=== PATIENT | male | born 1940 | race Two or more races ===

== ENCOUNTER 2024-05-19 09:44 | Outpatient (AMB) | payer MEDICAID, SELFPAY ==
[2024-05-19 09:51] VITALS: BP 134/73; PULSE 99; RESP 17; TEMP 36.4; O2SAT 83
--- NOTE | 2024-05-19 09:51 | PD.RESCLINIC ---
Vital Signs 05/19/24 09:51 Weight Measurement Method Wheelchair BP 134/73 H Blood Pressure Source Automatic Cuff Blood Pressure Location Left Upper Arm Position Sitting Respiration 17 Pulse 99 Pulse Source Monitor Temp 97.5 F Temp Source Oral Pulse Oximetry (%) 83 L Oxygen Delivery Method Nasal Cannula Allergies/Meds Allergies & Medications Allergies No Known Allergies Allergy (Verified 05/19/24 09:52) Medication Reconciliation albuterol sulfate 90 mcg/actuation aerosol inhaler 2 puff inhalation Q6H PRN Shortness Of Breath Or Wheezing #8.5 grams 05/19/24 [Rx] albuterol sulfate 1.25 mg/3 mL solution for nebulization 1.25 mg (3 mL) inhalation QID PRN shortness of breath or wheezing #120 vials 05/21/24 [Rx] fluticasone propionate 230 mcg-salmeterol 21 mcg/actuation HFA inhaler (Advair HFA) 2 puff inhalation BID #12 grams 05/28/24 [Rx] tiotropium bromide 2.5 mcg/actuation mist for inhalation (Spiriva Respimat) 2 puff inhalation QAM #4 grams 05/28/24 [Rx] MA Intake Visit Data Collection New Patient or Established: Established Patient (seen at [facility] within 3 years) Seen by Clinical Staff ONLY (RN/MA): No Pain Present Currently: No Pain scale:: 0 Pain Scale Used: [place]/Numerical PCP or OBGYN visit in last 3 months: No Do You Feel Safe at Home: Yes Authorities Contacted: N/A Smoking Status Smoking Status: Former smoker Immunization / Flu Flu Vaccine in the Last 12 Months: No Flu Vaccine Exclusion Criteria: No Exclusion Criteria Past Medical History Past Medical History CARDIAC: Positive Hypertension (I think so- per daughter); Negative Congestive Heart Failure RESPIRATORY: Positive Asthma; Negative Chronic Obstructive Pulmonary Disease (COPD) GENITOURINARY: Negative Genitourinary Disorders or Renal Disease MUSCULOSKELETAL: Negative Arthritis ENDOCRINE: Negative Diabetes Mellitus Type 1 or Diabetes Mellitus Type 2 HEMATOLOGIC: Negative Anemia OTHER HISTORY: Negative Blood Transfusions or Anesthesia Reactions Family History FAMILY HISTORY: Negative Family Cardiac Disorders Social History SMOKING STATUS: Smoking status: Former smoker SECOND HAND EXPOSURE: second hand exposure: No (QUIT >12yrs ago) ALCOHOL: Alcohol Intake: Never HOUSING: Housing: trailer LIVES WITH: Lives With: Family Patient Shahida Dobbs Social History Living Situation History Housing: trailer Housing Other:: lives with son Tobacco History Smoking Status: Former smoker Packs per Day: 2 Second Hand Smoke Exposure: No (QUIT >12yrs ago) Alcohol History Alcohol Intake: Never Domestic Abuse History Do You Feel Safe at Home: Yes Review of Systems Report any current symptoms Only answer those that you have currently: Past Medical History Past Medical History Have you ever been diagnosed with any of the following: Cardiology Problems Congestive Heart Failure: No Hypertension: Yes (I think so- per daughter) Respiratory Problems Chronic Obstructive Pulmonary Disease (COPD): No Asthma: Yes Genital/Urinary Problems Renal Disease: No Musculoskeletal Problems Arthritis: No Endocrine Problems Diabetes Mellitus Type 1: No Diabetes Mellitus Type 2: No Blood Problems Anemia: No Other Problems Blood Transfusions: No Anesthesia Reactions: No History of Present Illness HPI Narrative Conrado Adamson is 83 yr male with PMH of asthma who is presenting to clinic today for a follow up. Patient was recently discharged from hospital on 05/12/2024 due to pneumonia, KAREEN, COPD exacerbation. Niece was present during office visit. She stated that he has completed his course of steroid and antibiotics. Patient has been compliant with oxygen machine currently set to 2 L. Oxygen requirement has been needed for most of the day at night. He denies any shortness of breath, chest pain, cough, fever, chills. States that he is feeling much better after starting his inhaler and oxygen. During the visit, the niece had inquired about getting physical therapy/home health services for patient. States that he is very weak and would benefit from some physical therapy. Currently patient is only able to be transported via wheelchair and needs assitance from getting up from bed/using the toilet. The niece stated that she will start paperwork for insurance as he is currently not insured. Review of Systems Review of Systems Systems Reviewed: All systems reviewed, normal except as documented Objective/Exam Narrative Physical exam: General: Alert and oriented x3. No acute distress, cooperative HEENT: Atraumatic, normocephalic. No JVD noted. Mucosa dry. Cardiovascular: Normal S1 and S2. Regular rate and rhythm. No pitting edema Respiratory: Lungs are clear to auscultation bilaterally. No wheezing or crackles heard. On 2L NC Abdomen: Soft, nontender, not distended, normal bowel sounds. Skin: Warm to touch, dry, no rashes noted Musculoskeletal: No gross injuries. Able to move all 4 extremities, uses wheelchair Neuro: Alert and oriented x3. No focal neuro deficits. Psych: Normal affect and mood Assessment & Plan Diagnosis / Problem List (1) COPD (chronic obstructive pulmonary disease): Status: Acute Assessment & Plan: Patient has history of poorly controlled COPD however has not been diagnosed by heel sander rubber. Patient will need referral to have PFTs done. Has been compliant with inhaler and oxygen regimen since time of discharge. Denies any worsening shortness of breath, chest pain, cough. Encourage niece to purchase pulse ox for monitoring oxygenation. Plan: -purchase pulse ox -continue home oxygen use -continue albuterol sulfate/Trelegy inhaler -Albuterol inhaler refill sent today -Pulmonology referral pending insurance coverage (2) Benign prostate hyperplasia: Status: Acute Assessment & Plan: During last admission, patient exhibited very low urine output and worsening KAREEN. Bladder scan revealed mild to moderate prostatomegaly. Patient was started on tamsulosin and finasteride. Endorses normal urine stream, no dribbling, no dysuria. Plan: - Continue finasteride 5 mg p.o. daily -Continue tamsulosin 0.4 mg p.o. daily -ordered 1 month refill today -follow up in 1 month (3) Wheelchair dependence: Status: Acute Assessment & Plan: Patient is using wheelchair as he has weakness in b/L lower extremities. Very thin/emaciated appearing on physical exam. He would benefit from physical therapy but currently is not able to have home physical therapy as patient is not insured. Encouraged niece who was present at visit to start paperwork and have patient coverage via [employer]. Plan: - Contact services to assist with [employer] coverage paperwork -Contact resident clinic for physical therapy/home health services referral Additional Assessment Attending note: I, Nilton Galicia MD, attest that I was physically present for the snow portions of the service and evaluated the patient with the resident and I reviewed and discussed the case with the resident and agree with the resident's findings and plans of care as documented above. Follow-up from recent hospitalization for pneumonia, KAREEN, exacerbation of COPD. Complete antibiotics and steroids. Using oxygen at 2 L. Feeling improved. We will order home health evaluation and physical therapy. Patient and his family to work on insurance coverage. Nilton Galicia MD Advanced Care Planning Advance care planning discussed with:: patient Physician Billing New Patient New Patient: E/M Level 3-CPT 57279 Office Procedures [facility] Level of Care Nursing/Assessment Patient Status: Established Patient Nursing Assessment/Reassessment: Medication Reconciliation, Update PMH in EMR and Vital Signs Coordination of Care: Complex Care and Chronic Disease 1-5, Education Complex Pt/Fam and Staff clarify orders Established Patient Charge Established Patient Point Assignment: 85 Established Patient Point Charge: EP Level 3 (80-115)
== END 2024-05-19 10:23 | disposition home or self-care (01) ==
LOC: HODAHC 09:44
PROVIDERS: Supervising Provider Internal Medicine
DX: N40.0 Benign prostatic hyperplasia without lower urinary tract symptoms (principal); J44.9 Chronic obstructive pulmonary disease, unspecified; R53.1 Weakness; Z99.3 Dependence on wheelchair
CPT/HCPCS: 99213; G0463

== ENCOUNTER 2024-08-28 00:08 | Inpatient (IN) | payer MEDICARE, MEDICAID, SELFPAY ==
[2024-08-28] VITALS (29 sets, daily range): BP systolic 136–234; BP diastolic 69–125; PULSE 85–130; RESP 16–80; TEMP 36.4–38.7; O2SAT 80–100; BMI 24.1
--- NOTE | 2024-08-28 00:10 | PC.NURSE ---
Dr. Leyva at the bedside
--- NOTE | 2024-08-28 00:13 | EKG_ITS ---
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
--- NOTE | 2024-08-28 00:15 | EDNOTE_ITS ---
ED SOB =RME/HPI General Chief Complaint: Shortness of Breath/Dyspnea Stated Complaint: DIFFICULTY BREATHINGX3 DAYS WORSEN TODAY Time Seen by Provider: 08/28/24 00:10 Arrival date/time: 08/28/24 00:08 RME / HPI RME / HPI Narrative: Dr. Leyva?s Main ED Evaluation: 84yo male with a history of COPD on home O2 presents to the ED for a chief complaint of shortness of breath. Patient states he's had a productive cough, chills, and shortness of breath for the last 4 days. Patient states his shortness of breath significantly worsened tonight, so he came in for evaluation. Family at bedside denies any sick contacts. Patient states he ran out of his inhalers at home. Patient is a former tobacco smoker, quit over 20 years ago. Patient denies any fever, N/V or any other associated symptoms. Related Data Previous Rx's ?Medication ?Instructions ?Recorded albuterol sulfate 90 mcg/actuation 2 puff inhalation Q 6H PRN 05/19/24 aerosol inhaler Shortness Of Breath Or Wheez ing #8.5 grams albuterol sulfate 1.25 mg/3 mL 1.25 mg (3 mL) inhalati on QID PRN 05/21/24 solution for nebulization shortness of breath or wheez ing #120 vials fluticasone propionate 230 2 puff inhalation BID #12 g he 05/28/24 mcg-salmeterol 21 mcg/actuation HFA inhaler (Advair HFA) tiotropium bromide 2.5 2 puff inhalation QAM #4 gra ms 05/28/24 mcg/actuation mist for inhalation (Spiriva Respimat) Allergies Allergy/AdvReac Type Severity Reaction Status Date / Time No Known Allergies Allergy Verified 05/19/24 09:52 Review of Systems Review of Systems Systems Reviewed: All systems reviewed, normal except as documented Past Medical History Past Medical History CARDIAC: Positive Hypertension (I think so- per daughter); Negative Congestive Heart Failure RESPIRATORY: Positive Asthma; Negative Chronic Obstructive Pulmonary Disease (COPD) GENITOURINARY: Negative Genitourinary Disorders or Renal Disease MUSCULOSKELETAL: Negative Arthritis ENDOCRINE: Negative Diabetes Mellitus Type 1 or Diabetes Mellitus Type 2 HEMATOLOGIC: Negative Anemia OTHER HISTORY: Negative Blood Transfusions or Anesthesia Reactions Family History FAMILY HISTORY: Negative Family Cardiac Disorders Social History SMOKING STATUS: Former smoker SECOND HAND EXPOSURE: No (QUIT >12yrs ago) ED Exam Narrative Physical exam: GENERAL APPEARANCE: alert and oriented x 4, well-developed, well-nourished, speaks 1-2 word sentences, in [id number] respiratory distress VITALS: All vitals were reviewed and the pulse ox is 72% on room air, which is hypoxic according to my interpretation. HEENT: Normocephalic, atraumatic; pupils equal, round, reactive to light; EOMI; mucous membranes pink, moist; oropharynx clear NECK: Supple LUNGS: inspiratory and expiratory wheezes bilaterally, tachypneic, no rales, no rhonchi HEART: Tachycardic, regular rhythm; normal S1, S2; no murmurs ABDOMEN: non distended; normal BS; soft, no tenderness, no guarding, no rebound; no masses, no organomegaly, no hernia BACK: no CVA tenderness EXTREMITIES: atraumatic; no edema NEUROLOGIC: awake; alert and oriented x4; cranial nerves II-XII grossly intact; no focal sensory or motor deficits PSYCHIATRIC: appropriate mood and affect SKIN: warm, dry, normal color; no rashes Course Course Course Narrative: 0018: Sepsis alert initiated. Orders made at this time are congruent with ED Adult Sepsis Order List. Re-evaluation is to be completed. CXR is ordered for determining the etiology of shortness of breath. 0036: NS IVF started. 0206: Sepsis reassessment performed consisting of lab review, vitals, physical exam including auscultation of heart, lungs, and visual evaluation of capillary refills, mucosal membranes and extremities. Quality Measures Possible source: pulmonary Blood cultures ordered: yes Antibiotic ordered: Yes Pertinent labs: 08/28/24 00:30 Lactic Acid 2.0 mMol/L (0.4-2.0) Procalcitonin 0.15 ng/ml (0.0-0.49) sepsis Orders Category Date Time Status Bedside COVID-19 Antigen Test NOW Care 08/28/24 00:16 Active Bedside Influenza A&B Antigen Test NOW Care 08/28/24 00:18 Completed Chemical Engraver STAT Care 08/28/24 00:17 Active Continuous Pulse Oximetry STAT Care 08/28/24 00:17 Completed EKG (ED ONLY) *Do not use* NOW Care 08/28/24 00:13 Completed In and Out Catheter X1PRN Care 08/28/24 00:17 Active NPO STAT Care 08/28/24 00:17 Active Strict Intake and Output Routine Care 08/28/24 00:17 Ordered EKG (ED Only) Stat Exams 08/28/24 00:13 Draft XR chest 1V portable Stat Exams 08/28/24 00:16 Taken Arterial Blood Gas Stat Lab 08/28/24 00:59 Completed B-Type Natriuretic Peptide Stat Lab 08/28/24 00:30 Completed Blood Culture (Lab) Stat Lab 08/28/24 00:30 Received CBC Stat Lab 08/28/24 00:30 Completed Comprehensive Metabolic Panel Stat Lab 08/28/24 00:30 Results LDH (Lactate Dehydrogenase) Stat Lab 08/28/24 00:30 Results Lactate (Lactic Acid) Stat Lab 08/28/24 00:30 Completed Lipase Stat Lab 08/28/24 00:30 Results Magnesium Stat Lab 08/28/24 00:30 Results Partial Thromboplastin Time Stat Lab 08/28/24 00:30 Completed Phosphorous Stat Lab 08/28/24 00:30 Results Procalcitonin Stat Lab 08/28/24 00:30 Results Prothrombin Time with INR Stat Lab 08/28/24 00:30 Completed Troponin I Stat Lab 08/28/24 00:30 Results Urinalysis Stat Lab 08/28/24 00:17 Ordered Urine Culture Stat Lab 08/28/24 00:17 Ordered ALBUTEROL RT 0.5ml [Proventil Rt 0.5ml] Med 08/28/24 00:45 Discontinued 10 mg INH X1 ONE ALBUTEROL RT 5 ml [Proventil Rt 5 ml] Med 08/28/24 00:40 Discontinued 10 mg INH X1 ONE Acetaminophen Ivpb [Ofirmev Inj] Med 08/28/24 00:25 Discontinued 1,000 mg in 100 ml IV X1 Albuterol/Ipratr Rt Katarina [Duoneb Rt Katarina] Med 08/28/24 00:16 Discontinued 3 ml INH X1 ONE LORazepam [Ativan Inj] Med 08/28/24 01:56 Discontinued 0.5 mg IVP X1 ONE MethylPREDNISolone.* [SoluMEDROL Inj] Med 08/28/24 00:16 Discontinued 25 mg IVP X1 ONE MethylPREDNISolone.* [SoluMEDROL Inj] Med 08/28/24 00:31 Discontinued 250 mg IVP X1 ONE Sodium Chloride 0.9% 1000 ml [Ns] 1,845 ml Med 08/28/24 00:16 Discontinued IV 1,845 mls/hr Sodium Chloride Rt Katarina 0.9% [NS Rt Katarina 0.9%] Med 08/28/24 00:45 Active 3 ml INH PRN PRN cefTRIAXone [Rocephin] 1,000 mg Med 08/28/24 00:16 Discontinued SODIUM CHLORIDE 0.9% (Popper) [Ns 0.9% (P)] 50 ml IV X1 hydrALAZINE INJ [Apresoline Inj] Med 08/28/24 01:56 Discontinued 10 mg IV X1 ONE BiPAP / CPAP NOW RT 08/28/24 01:55 Active Oxygen Delivery NOW RT 08/28/24 00:17 Active Reevaluation(s) Reevaluation #1: Patient is tachycardic in the 140s and tachypneic with a RR of 35. Patient is saturating at 100% via venti mask. BiPaP ordered. Time: 01:50 Reevaluation #2: Patient is resting comfortably at this time. Blood pressure has improved to 136/84 with a heart rate of 112 and RR of 25. Will consult with the hospitalist. Time: 03:20 Vital Signs Vital signs: Vital Signs Temperature 99.1 F 08/28/24 00:11 Pulse Rate 127 H 08/28/24 00:11 Respiratory Rate 36 H 08/28/24 00:11 Blood Pressure 211/91 H 08/28/24 00:11 Pulse Oximetry (%) 88 L 08/28/24 00:11 Oxygen Delivery Method Room Air 08/28/24 00:11 Shortness of Breath / Dyspnea MDM Narrative MDM Narrative:: Scribe Attestation: 08/28/24 Lara Pradhan am scribing for and in the presence of Dr. Leyva. Patient data External records reviewed:: [facility] previous records (Per chart review, patient was admitted here on 05/08/24 for KAREEN.) Clinical information provided by:: patient and family Social determinants that could affect healthcare access:: substance use (former tobacco smoker, quit over 20 years ago) Patient has the following chronic illnesses:: COPD How is presenting disease/condition affected by chronic disease/condition?: exacerbated by Evaluation data The following diagnostics were reviewed and interpreted by me:: lab results, radiology exam(s) and EKG tracing(s) Lab and/or radiology exams considered but not ordered:: none Interpretation Summary: Bedside COVID and Influenza are negative, CBC is normal, PT and INR are normal, PTT is normal, ABG shows an elevated pCO2 and elevated HCO3, Glucose is 144, Troponin is normal, BNP is 213, Procalcitonin is normal, Lactic Acid is normal, according to my interpretation. CXR shows bibasilar infiltrates, normal cardiac silhouette, COPD changes, sharp costophrenic angles, no pneumothorax, according to my interpretation. EKG done at 0009, sinus tachycardia, rate of 118, normal axis, no ectopy, peak P waves, no acute ischemia, according to my interpretation. Medications / Prescriptions Medications or Prescriptions considered but not ordered:: none Medication administrations:: Medication Administration History Sodium Chloride (Sodium Chloride Rt Katarina 0.9% 3 Ml Nebu) 3 ml INH PRN PRN PRN Reason: SOLN Stop: 09/27/24 00:44 Discontinued Medications Albuterol (Albuterol Rt 25 Mg/5 Ml Nebu) 10 mg INH X1 ONE Stop: 08/28/24 00:41 Last Admin: 08/28/24 01:51 Dose: Not Given Documented By: KG Non-Admin Reason: Discontinued Albuterol (Albuterol Rt 2.5 Mg/0.5 Ml Nebu) 10 mg INH X1 ONE Stop: 08/28/24 00:46 Last Admin: 08/28/24 00:49 Dose: 10 mg Documented By: MODESTO Albuterol/Ipratropium (Albuterol/Ipratropium (Duoneb) Rt Katarina 3 Ml Nebu) 3 ml INH X1 ONE Stop: 08/28/24 00:17 Last Admin: 08/28/24 00:27 Dose: 3 ml Documented By: MODESTO Hydralazine HCl (Hydralazine Inj 20 Mg/Ml Vial) 10 mg IV X1 ONE Stop: 08/28/24 01:57 Last Admin: 08/28/24 02:11 Dose: 10 mg Documented By: KG Sodium Chloride (Ns) 1,845 mls @ 1,845 mls/hr 30 ml/kg infuse over 60 min (1845 ml) IV .Q1H ONE Stop: 08/28/24 01:15 Last Infusion: 08/28/24 01:36 Dose: Infused Documented By: Admin: 08/28/24 00:36 Dose: 1,845 mls/hr Documented By: KG Ceftriaxone Sodium 1,000 mg/ (Sodium Chloride) 50 mls @ 100 mls/hr IV X1 ONE Stop: 08/28/24 00:45 Last Infusion: 08/28/24 01:06 Dose: Infused Documented By: Admin: 08/28/24 00:36 Dose: 100 mls/hr Documented By: KG Acetaminophen (Ofirmev Inj) 1,000 mg in 100 mls @ 250 mls/hr IV X1 ONE Stop: 08/28/24 00:48 Last Infusion: 08/28/24 01:14 Dose: Infused Documented By: Admin: 08/28/24 00:50 Dose: 250 mls/hr Documented By: KG Lorazepam (Lorazepam 2 Mg/Ml Vial) 0.5 mg IVP X1 ONE Stop: 08/28/24 01:57 Last Admin: 08/28/24 02:10 Dose: 0.5 mg Documented By: KG Methylprednisolone Sodium Succinate (Methylprednisolone Sod Succ 62.5 Mg/Ml 2ml Vial) 25 mg IVP X1 ONE Stop: 08/28/24 00:17 Last Admin: 08/28/24 00:48 Dose: Not Given Documented By: KG Non-Admin Reason: Discontinued Methylprednisolone Sodium Succinate (Methylprednisolone Sod Succ 62.5 Mg/Ml 2ml Vial) 250 mg IVP X1 ONE Stop: 08/28/24 00:32 Last Admin: 08/28/24 00:35 Dose: 250 mg Documented By: KG see above Consultations Consultation(s) initiated? (list below): Yes Consultation #1 (Physician, Specialty, Details): Discussed case with Dr. Kenny - ICU resident from Hospitalist service regarding admission. Discussed patients ED course, exam findings, labs, and radiology results. The Hospitalist will evaluate the patient for admission. Time: 02:21 Consultation #2 (Physician, Specialty, Details): Discussed case with [Dr. Hou, attending Dr. Moreno] from Hospitalist service regarding admission. Discussed patients ED course, exam findings, labs, and radiology results. The Hospitalist [agrees] to accept the patient for admission. Time: 03:25 Diagnosis Shortness of Breath Differential Diagnosis: community acquired pneumonia and other (COPD exacerbation, ) Most likely diagnosis given after review of the tests above:: see below Admission Indicated Admission indicated?: indicated Admission Request Was there a request for admission?: Yes Admission Attestation Admission request attestation: Discussed case with [] from Hospitalist service regarding admission. Discussed patients ED course, exam findings, labs, and radiology results. The Hospitalist [agrees,declines] to accept the patient for admission. Disposition Plan Disposition Plan: Admit Critical Care Time Critical Care Time Critical Care Time: Yes Total Critical Care Time (min.): 75 Attestation: The high probability of sudden, clinically significant deterioration in the patient?s condition required the highest level of my preparedness to intervene urgently. The services I provided to this patient were to treat and/or prevent clinically significant deterioration. Services included the following: chart data review, reviewing nursing notes and/or old charts, documentation time, financial operations consultant collaboration regarding findings and treatment options, medication orders and management, direct patient care, vital sign assessments and ordering, interpreting and reviewing diagnostic studies and lab tests. Aggregate critical care time includes only time during which I was engaged in work directly related to the patient?s care, as described above, whether at bedside or elsewhere in the Emergency Department. It did not include time spent performing other reported procedures or the services of residents, students, nurses or physician assistants. Discharge Plan Plan Patient Disposition: Admit Acute Care w/in Hospital Prescriptions/Referrals Prescriptions/Med Rec: No Action albuterol sulfate 90 mcg/actuation HFA aerosol inhaler 2 puff INHALATION Q6H PRN (Reason: Shortness Of Breath Or Wheezing) Qty: 8.5 3RF albuterol sulfate 1.25 mg/3 mL solution for nebulization 1.25 mg inhalation QID PRN (Reason: shortness of breath or wheezing) Qty: 120 5RF Spiriva Respimat 2.5 mcg/actuation mist 2 puff inhalation QAM Qty: 4 5RF Rx Instructions: To replace Trelegy fluticasone propion-salmeterol [Advair HFA] 230-21 mcg/actuation HFA aerosol inhaler 2 puff inhalation BID Qty: 12 5RF Rx Instructions: To replace trelegy along with Spiriva Referrals: No Primary/Family,Physician [Primary Care Provider] - In 1 week Problem List Clinical Impression: Pneumonia, Sepsis, Respiratory failure, Hypertensive emergency Patient/Caregiver Discharge Instructions Print Language: Cuban Stand Alone Forms: [employer] Info., Patient Portal Info Letter
--- NOTE | 2024-08-28 00:16 | XR_ITS ---
Examination: AP chest single view Technique one AP portable upright chest single view Exam date and time: August 28, 2024 0043 hours Comparison May 08, 2024 INDICATIONS: Sepsis protocol. FINDINGS: Significant hyperexpansion Normal heart size Bibasilar pneumonia Prominent osteopenia IMPRESSION: Bibasilar pneumonia
[2024-08-28] MEDS: ALBUTEROL/IPRATROPIUM (Duoneb) RT SOL 3 ML NEBU INH ×6 (00:27→23:40)
[2024-08-28] MEDS: MethylPREDNISolone SOD SUCC 62.5 MG/ML 2ML VIAL 250 MG IVP (00:35)
[2024-08-28] MEDS: SODIUM CHLORIDE 0.9% 1000 ML 1,845 ML 1845 ML IV (00:36)
[2024-08-28] MEDS: cefTRIAXone 1,000 MG in SODIUM CHLORIDE 0.9% (Popper) 50 ML 100 MG IV ×3 (00:36→21:11)
[2024-08-28 00:39] LABS: Basophils # (Auto) 0.1 Thou/mm3 (0.0-0.2); Basophils % (Auto) 1 % (0-2.5); Eosinophils # (Auto) 0.1 Thou/mm3 (0.0-0.5); Eosinophils % (Auto) 2 % (0-10); Hematocrit 44.1 % (41.0-53.0); Hemoglobin 14.1 g/dL (13.5-16.0); Immature Granulocytes % (Auto) 0 % (0-0); Immature Granulocytes Auto 0.02 Thou/mm3 (0.00-0.00); Lymphocytes % (Auto) 18 % (10-50); Mean Corpuscular Hemoglobin 27.6 pg (25.0-35.0); Mean Corpuscular Volume 86 fL (80-100); Monocytes # (Auto) 0.7 Thou/mm3 (0.0-0.8); Monocytes % (Auto) 12 % (0-12); Neutrophils # (Auto) 3.9 Thou/mm3 (1.8-7.7); Neutrophils % (Auto) 67 % (37-80); Nucleated Red Blood Cell % 0 /100 WBC (0); Platelet Count 199 Thou/mm3 (140-440); RDW Standard Deviation 43.6 fL (35.1-43.9); Red Blood Count 5.11 Miln/mm3 (4.50-5.90); White Blood Count 5.8 Thou/mm3 (3.8-10.6)
[2024-08-28] MEDS: ALBUTEROL RT 2.5 MG/0.5 ML NEBU 10 MG INH (00:49)
[2024-08-28] MEDS: ACETAMINOPHEN IVPB 1,000 MG/100 ML VIAL 250 MG IV (00:50)
[2024-08-28 01:07] LABS: Base Excess 4 (-3-3); HCO3 31 mEq/L (20-26); Inspired O2, VO2 Liters 6 L/min; O2 Saturation 100 % (91-98); PCO2 60 mmHg (32.0-48.0); PO2 138 mmHg (83-108); pH, Arterial 7.33 (7.35-7.45)
[2024-08-28 01:11] LABS: INR 1.1 (0.9-1.3); Prothrombin Time 11.8 Seconds (9.0-12.2)
[2024-08-28 01:21] LABS: Allen Test Performed/OK; Puncture Site Right Radial
[2024-08-28 01:22] LABS: B-Type Natriuretic Peptide 213 pg/mL (0-100)
[2024-08-28 01:24] LABS: Alanine Aminotransferase 13 U/L (10-49); Albumin, Serum 4.5 gm/dL (3.4-4.8); Albumin/Globulin Ratio 1.6 (1.2-2.2); Alkaline Phosphatase 98 U/L (46-116); Anion Gap 8 (7-16); Aspartate Amino Transferase 20 U/L (0-34); BUN/Creatinine Ratio 13 Ratio (12-20); Bilirubin,Total 0.5 mg/dL (0.3-1.2); Blood Urea Nitrogen 12 mg/dL (9-23); Calcium 9.5 mg/dL (8.3-10.6); Calcium (Corrected) 9.5 mg/dL (8.5-10.1); Chloride 104 mMol/L (98-107); Creatinine (Component) 0.9 mg/dL (0.6-1.3); Estimated Creatinine Clearance 53.1 mL/min (>60); Globulin 2.8 gm/dL (2.3-3.5); Glucose 144 mg/dL (74-106); Lipase 23 U/L (12-53); Magnesium 1.9 mg/dL (1.6-2.6); Osmolality,Calculated 285 (275-295); Phosphorous 2.9 mg/dL (2.4-5.1); Potassium 3.9 mMol/L (3.4-5.1); Procalcitonin 0.15 ng/ml (0.0-0.49); Sodium 142 mMol/L (136-145); Total Protein 7.3 gm/dL (5.7-8.2); Troponin I 0.035 ng/mL (0.0-0.045); eGFR > 60 See Note
--- NOTE | 2024-08-28 01:56 | PC.NURSE ---
RT at the bedside at this time placing pt on bipap.
[2024-08-28] MEDS: LORazepam 2 MG/ML VIAL 0.5 MG IVP (02:10)
[2024-08-28] MEDS: hydrALAZINE INJ 20 MG/ML VIAL 10 MG IV (02:11)
[2024-08-28 04:04] LABS: LDH (Lactate Dehydrogenase) 305 U/L (120-246)
--- NOTE | 2024-08-28 05:18 | ESHP_ITS ---
<Statement entered by Christy Moreno MD - 09/02/24 05:42> I reviewed above note and agree with findings and plans. I have also personally examined the patient with medicine team and went over assessment and plan with medical team including technical support intern and resident physician. Documentation for date of: 08/28/24 HPI History of Present Illness History of present illness: HPI is limited as patient is currently on BiPAP and is unable to answer questions fully Conrado is a 84 y/o male with PMHx of BPH, COPD (on home oxygen 2 L) comes in for an evaluation of hypoxia, and shortness of breath. Per patient's family patient had been out of oxygen and also possibly inhalers. They deny any recent sick contacts in the patient's household. He has been using oxygen since his last hospitalization for COPD and has been seen at the [facility]. There was associated cough as well for patient. Patient does measure her oxygen at home and uses oxygen at home. There was a concern that patient also ran out of inhalers as well. He takes all other medicines as prescribed. ED course: Patient arrived to the ED with a temperature 101.7, heart rate 120, respiratory rate 28, blood pressure 234/116, and was saturating 88% on room air. Patient was worked up was found to have a sodium of 142, potassium 3.9, bicarb 30, BUN/creatinine of twelve 0.9, glucose 144, white count 5.8, hemoglobin 14.1, lactate 2.0, magnesium 1.9, phosphorus 2.9, calcium, 9.5, BNP 213, troponin 0.035, ABG pH 7.33, pCO2 60, bicarb 31. Checks x-ray shows infiltrates at bases of right and left lobes, worse on right. Sepsis alert was initiated and patient was given DuoNeb x 1, Solu-Medrol 250 mg, 1.8 L normal saline bolus, Rocephin x 1, albuterol x 1, Tylenol 1 g, Ativan 0.5 mg, hydralazine 10 mg x 1. Past medical history: As above Surgical history: Unknown Meds: Advair, Spiriva, Flomax, finasteride Allergies: No known allergies Family history: Limited Social history: Smoking quit 20 years ago Review of Systems Review of Systems Narrative Review of Systems: 12 point ROS is limited as patient is currently on BiPAP and is unable to fully answer questions at this time Exam Vital Signs Temp Pulse Resp BP Pulse Ox O2 Del Method O2 Flow Rate 97.9 F 100 24 H 136/69 H 92 L BiPAP 4 08/28/24 01:56 08/28/24 04:00 08/28/24 04:00 08/28/24 04:00 08/28/24 04:00 08/28/24 04:00 08/28/24 00:55 FiO2 30 08/28/24 04:00 Narrative Exam General: AAOx3, appears to be in mild distress, wearing BiPAP mask, seems to be breathing over BiPAP, appears to be frail, Uzbek-speaking male HEENT: Moist mucous membranes, conjunctiva clear, EOMI, PERRLA, Cardiovascular: S1, S2, radial pulses +2 bilat, RRR Pulmonary: BiPAP breath sounds GI: No tenderness to light or deep palpitation, no guarding, rigidity, rebound tenderness or distension Extremities: No presence of trace or pitting edema in lower extremities bilaterally, dorsalis pedis pulses +2 bilaterally Neuro: AAOx3, no focal motor or sensory deficits in the UE or LE bilat Results: Labs 08/28/24 05:30 08/28/24 00:30 Labs: Short CBC 08/28/24 Range/Units 00:30 WBC 5.8 (3.8-10.6) Thou/mm3 Hgb 14.1 (13.5-16.0) g/dL Hct 44.1 (41.0-53.0) % Plt Count 199 (140-440) Thou/mm3 BMP 08/28/24 00:30 Sodium 142 Potassium 3.9 Chloride 104 Carbon Dioxide 30.0 BUN 12 Creatinine 0.9 Glucose 144 H Calcium 9.5 Cardiac Enzymes 08/28/24 Range/Units 00:30 Troponin I 0.035 (0.0-0.045) ng/mL Liver Function 08/28/24 Range/Units 00:30 Total Bilirubin 0.5 (0.3-1.2) mg/dL AST 20 (0-34) U/L ALT 13 (10-49) U/L Alkaline Phosphatase 98 (46-116) U/L Albumin 4.5 (3.4-4.8) gm/dL ABG Interpretation ABG results: 08/28/24 00:59 ABG pH 7.33 L ABG pCO2 60 H ABG pO2 138 H ABG HCO3 31 H ABG O2 Saturation 100 H ABG Base Excess 4 H Quality Measures Quality Measures sepsis Current suspected stage: sepsis Possible source: pulmonary Blood cultures ordered: yes Antibiotic ordered: Yes Advance care planning discussed with:: patient Medications Home Medications and Allergies Allergies Allergy/AdvReac Type Severity Reaction Status Date / Time No Known Allergies Allergy Verified 05/19/24 09:52 Visit Medications Acetaminophen (Acetaminophen 325 Mg Tablet) 650 mg PO Q6H PRN PRN Reason: Fever >100 or pain 1-3 Stop: 09/27/24 05:08 Albuterol/Ipratropium (Albuterol/Ipratropium (Duoneb) Rt Katarina 3 Ml Nebu) 3 ml INH Q4HRRT [facility] Stop: 09/27/24 06:59 Enoxaparin Sodium (Enoxaparin Sod Inj 40 Mg/0.4 Ml Syringe) 40 mg SC QDAY DEBO Stop: 09/11/24 08:59 Ondansetron HCl (Ondansetron Inj 2 Mg/Ml Inj 2 Ml) 4 mg IV Q6H PRN; Protocol PRN Reason: NAUSEA OR VOMITING Stop: 09/27/24 05:08 Sodium Chloride (Sodium Chloride Rt Katarina 0.9% 3 Ml Nebu) 3 ml INH PRN PRN PRN Reason: SOLN Stop: 09/27/24 00:44 Discontinued Medications Albuterol (Albuterol Rt 25 Mg/5 Ml Nebu) 10 mg INH X1 ONE Stop: 08/28/24 00:41 Last Admin: 08/28/24 01:51 Dose: Not Given Albuterol (Albuterol Rt 2.5 Mg/0.5 Ml Nebu) 10 mg INH X1 ONE Stop: 08/28/24 00:46 Last Admin: 08/28/24 00:49 Dose: 10 mg Albuterol/Ipratropium (Albuterol/Ipratropium (Duoneb) Rt Katarina 3 Ml Nebu) 3 ml INH X1 ONE Stop: 08/28/24 00:17 Last Admin: 08/28/24 00:27 Dose: 3 ml Hydralazine HCl (Hydralazine Inj 20 Mg/Ml Vial) 10 mg IV X1 ONE Stop: 08/28/24 01:57 Last Admin: 08/28/24 02:11 Dose: 10 mg Sodium Chloride (Ns) 1,845 mls @ 1,845 mls/hr 30 ml/kg infuse over 60 min (1845 ml) IV .Q1H ONE Stop: 08/28/24 01:15 Last Infusion: 08/28/24 01:36 Dose: Infused Ceftriaxone Sodium 1,000 mg/ (Sodium Chloride) 50 mls @ 100 mls/hr IV X1 ONE Stop: 08/28/24 00:45 Last Infusion: 08/28/24 01:06 Dose: Infused Acetaminophen (Ofirmev Inj) 1,000 mg in 100 mls @ 250 mls/hr IV X1 ONE Stop: 08/28/24 00:48 Last Infusion: 08/28/24 01:14 Dose: Infused Lorazepam (Lorazepam 2 Mg/Ml Vial) 0.5 mg IVP X1 ONE Stop: 08/28/24 01:57 Last Admin: 08/28/24 02:10 Dose: 0.5 mg Methylprednisolone Sodium Succinate (Methylprednisolone Sod Succ 62.5 Mg/Ml 2ml Vial) 25 mg IVP X1 ONE Stop: 08/28/24 00:17 Last Admin: 08/28/24 00:48 Dose: Not Given Methylprednisolone Sodium Succinate (Methylprednisolone Sod Succ 62.5 Mg/Ml 2ml Vial) 250 mg IVP X1 ONE Stop: 08/28/24 00:32 Last Admin: 08/28/24 00:35 Dose: 250 mg Assessment & Plan Plan Assessment Conrado is a 84 y/o male with PMHx of BPH, COPD (on home oxygen 2 L) who is admitted for acute on chronic hypoxic respiratory failure and sepsis secondary to CAP and COPD exacerbation. #Acute on chronic hypoxic respiratory failure #Sepsis secondary to #CAP #Acute on chronic COPD exacerbation Tachycardic, febrile (101), tachypnea (24) Lactate 2.0 qSOFA: 1 points Sepsis due to 3/4 SIRS criteria 1.8 L sepsis bolus given Given given dyspnea, respiratory rate above 24, heart rate above 95, and oxygen saturations below 92 we believe patient is in moderate COPD exacerbation using SANTOS criteria Plan: ? Rocephin 1 g IV, azithromycin 250 mg IV after 500 mg loading dose ? Follow-up MRSA ? Follow-up blood cultures ? Follow-up Legionella ? Follow-up cocci ? Oxygen saturation goals 88 to 92%, wean down as tolerated ? Solu-Medrol 125 mg starting tomorrow ? DuoNebs every 4 hours ? Tessalon Perles as needed ? Chest physiotherapy ? Follow-up sputum #Hypertensive urgency, improving Came in with 232 SBP Given hydralazine 10 mg in the ED Plan: ? Do not correct systolic blood pressure more than 25% within the first 24 hours #History of BPH Chronic Plan: ? Resumed home finasteride 5 mg by mouth ? Resumed home Flomax 0.4 mg by mouth #Health Maintenance Disposition: Telemetry DVT prophylaxis: Lovenox GI prophylaxis: None indicated at this time Diet: Cardiac after patient passes swallow eval CODE STATUS: Full Patient seen and care discussed with my attending physician, Dr. Josh Moreau, PGY-1 Attending Provider Attestation/Addendum 84-year-old male with multiple comorbidities including COPD on 2 L home oxygen who presented to the ER with complaints of shortness of breath. Her family, patient has not been taking her inhalers as stable and at subsequently shortness of breath progressively gotten worse with increasing oxygen requirement. In the ER, patient was noted to be hypoxic with saturation in the low 80s and tachypnea subsequently started on BiPAP. In addition, workup significant for acute hypoxic hypercapnic respiratory failure secondary to COPD exacerbation with underlining community-acquired pneumonia. Plan to continue Rocephin, azithromycin, Solu-Medrol and close monitoring. Furthermore, patient also noted to have initial blood pressure 211/91 however improved with hypoxia got better.I reviewed above note and agree with findings and plans. I have also personally examined the patient with medicine team and went over assessment and plan with medical team including technical support intern and resident physician.
[2024-08-28 05:34] LABS: Base Excess 0 (-3-3); HCO3 28 mEq/L (20-26); Inspired Oxygen, FIO2 30 %; O2 Saturation 94 % (91-98); PCO2 58 mmHg (32.0-48.0); PO2 73 mmHg (83-108); pH, Arterial 7.29 (7.35-7.45)
[2024-08-28 05:36] LABS: Allen Test Performed/OK; Puncture Site Left Radial
[2024-08-28 05:40] LABS: Basophils % (Auto) 0 % (0-2.5); Eosinophils % (Auto) 0 % (0-10); Hematocrit 40.3 % (41.0-53.0); Hemoglobin 12.9 g/dL (13.5-16.0); Immature Granulocytes % (Auto) 1 % (0-0); Immature Granulocytes Auto 0.05 Thou/mm3 (0.00-0.00); Lymphocytes # (Auto) 0.2 Thou/mm3 (1.0-4.8); Lymphocytes % (Auto) 3 % (10-50); Mean Corpuscular Hemoglobin 27.6 pg (25.0-35.0); Mean Corpuscular Volume 86 fL (80-100); Monocytes # (Auto) 0.1 Thou/mm3 (0.0-0.8); Monocytes % (Auto) 3 % (0-12); Neutrophils # (Auto) 5.3 Thou/mm3 (1.8-7.7); Neutrophils % (Auto) 94 % (37-80); Nucleated Red Blood Cell % 0 /100 WBC (0); Platelet Count 146 Thou/mm3 (140-440); RDW Standard Deviation 43.7 fL (35.1-43.9); Red Blood Count 4.67 Miln/mm3 (4.50-5.90); White Blood Count 5.6 Thou/mm3 (3.8-10.6)
[2024-08-28 05:59] LABS: INR 1.1 (0.9-1.3); Partial Thromboplastin Time 30.9 Seconds (22.0-36.0); Prothrombin Time 12.1 Seconds (9.0-12.2)
[2024-08-28 06:17] LABS: Alanine Aminotransferase 11 U/L (10-49); Albumin, Serum 3.9 gm/dL (3.4-4.8); Albumin/Globulin Ratio 1.5 (1.2-2.2); Alkaline Phosphatase 86 U/L (46-116); Anion Gap 7 (7-16); Aspartate Amino Transferase 15 U/L (0-34); BUN/Creatinine Ratio 16 Ratio (12-20); Bilirubin,Total 0.3 mg/dL (0.3-1.2); Blood Urea Nitrogen 14 mg/dL (9-23); Calcium 8.2 mg/dL (8.3-10.6); Calcium (Corrected) 8.3 mg/dL (8.5-10.1); Carbon Dioxide 30.1 mMol/L (20.0-31.0); Cardiac Risk Estimate 2.7 RATIO (4.0-6.7); Chloride 105 mMol/L (98-107); Cholesterol 144 mg/dL (132-200); Creatinine (Component) 0.9 mg/dL (0.6-1.3); Estimated Creatinine Clearance 53.1 mL/min (>60); Globulin 2.6 gm/dL (2.3-3.5); Glucose 168 mg/dL (74-106); HDL Cholesterol 54 mg/dL (40-60); LDL Cholesterol,Calculated 76 mg/dL (0-130); Magnesium 1.7 mg/dL (1.6-2.6); Osmolality,Calculated 287 (275-295); Phosphorous 3.4 mg/dL (2.4-5.1); Potassium 4.3 mMol/L (3.4-5.1); Sodium 142 mMol/L (136-145); Thyroid Stimulating Hormone 1.28 uIU/mL (0.55-4.78); Total Protein 6.5 gm/dL (5.7-8.2); Triglycerides 68 mg/dL (30-150); eGFR > 60 See Note
[2024-08-28 06:22] LABS: Troponin I 0.062 ng/mL (0.0-0.045)
[2024-08-28 06:53] LABS: Lactate (Lactic Acid) 2.1 mMol/L (0.4-2.0)
[2024-08-28 07:11] LABS: Glucose Estimated Average 114 mg/dL (80-131); Hemoglobin A1C 5.6 % Hgb (4.8-6.0)
[2024-08-28 07:50] LABS: Collection Type, Urine Clean Catch
[2024-08-28 08:13] LABS: Bilirubin,Urine Negative (Negative); Blood,Urine Trace (Negative); Clarity,Urine Clear (Clear/Hazy); Color,Urine Lt-Yellow (Lt Yel-Yel); Glucose, Urine Negative (Negative); Ketones,Urine 1+ (Negative); Leukocyte Esterase,Urine Negative (Negative); Nitrite,Urine Negative (Negative); PH,Urine 6.5 (5.0-7.0); Protein,Urine 1+ (Neg - Trace); RBC,Urine 9 /hpf (0-3); Specific Gravity,Urine 1.023 (1.001-1.035); Squamous Epithelial Cell,Urine < 1 /hpf (0-5); Urobilinogen,Urine Negative mg/dL (0.0-1.0); WBC,Urine 1 /hpf (0-5)
--- NOTE | 2024-08-28 08:15 | PC.NURSE ---
BREAKFAST TRAY PROVIDED.
--- NOTE | 2024-08-28 09:12 | PC.CC ---
Patient is a 84 year-old male who presents to the hospital for COPD Exacerbation. Zoe MONZON made [id number] contact with patient. ASW introduced self, role, and reason for visit. Patient appeared alert and oriented to self, location, and situation. Patient was pleasant and engaged in initial assessment. Patient confirmed information he lives at home with his daughter, Lakia Rincon . Patient reports his next of kin is his son Rcihar Rincon . Patient reports he has 10 adult children. At home patient ambulates independently and can complete his own ADLs. Patient reports he can benefit from oxygen at home and some breathing treatments as he ran out recently. Patient stated he receives primary care at [facility]. Upon discharge patient plans to return home. counseling services director to follow up with any discharge needs.
[2024-08-28] MEDS: TAMSULOSIN HCL 0.4 MG CAPSULE PO (09:34)
[2024-08-28] MEDS: ENOXAPARIN SOD INJ 40 MG/0.4 ML SYRINGE SC (09:37)
[2024-08-28 09:51] LABS: Reflex Lactate? Y
[2024-08-28 11:16] LABS: Lactic Acid, 3 HR 2.8 mMol/L (0.4-2.0)
[2024-08-28] MEDS: AZITHROMYCIN INJ 500 MG in SODIUM CHLORIDE 0.9% 250 ML 250 ML 250 MG IV (11:16)
[2024-08-28 11:47] LABS: Base Excess 2 (-3-3); HCO3 29 mEq/L (20-26); Inspired Oxygen, FIO2 30 %; O2 Saturation 98 % (91-98); PCO2 54 mmHg (32.0-48.0); PO2 99 mmHg (83-108); pH, Arterial 7.33 (7.35-7.45)
[2024-08-28 11:59] LABS: Allen Test Performed/OK; Puncture Site Right Radial
--- NOTE | 2024-08-28 12:09 | ESPR_ITS ---
<Statement entered by Aliza Cheng MD - 08/29/24 16:58> Patient seen and examined at bedside. No acute overnight events reported. Patient shortness of breath has improved significantly, however still prefers to use the BiPAP. Will continue to monitor lactic acid until downtrend noticed. Will add Mucomyst and chest physiotherapy as well as IV steroids as patient continues to have wheezing. I discussed with and supervised the operations intern physician who took care of this patient. I personally saw and examined the patient and discussed the assessment and plan with the entire medicine team, including my attending Dr. Poole, I agree with most of the assessment and plan as documented below Aliza Cheng M.D. PGY-2 Disclaimer: Despite multiple revisions, due to the dictation software being used, the document bellow may not be free of grammatical errors including phonetic/typographic errors. However, this does not deter from our commitment to providing health care in the patient's best interest in mind. Documentation for date of: 08/28/24 Subjective Subjective Interval history: Patient seen today at the bedside found awake, alert, orientedx3. States no active complaints at this time. States feeling better in terms of his shortness of breath. On examination bilateral rhonchi heard on auscultation. Vital signs stable at this time. ABGs ordered show mild respiratory acidosis likelly secondary to CO2 retention. Lactic acid trending up, will continue to trend, 1 L NS bolus given. Mucomyst added, chest physiotherapy given, will start prednisone 80 mg p.o. twice daily. Exam Vital Signs Temp Pulse Resp BP Pulse Ox O2 Del Method O2 Flow Rate 97.5 F 92 28 H 178/99 H 99 BiPAP 3 08/28/24 10:10 08/28/24 10:19 08/28/24 10:19 08/28/24 10:10 08/28/24 10:19 08/28/24 10:10 08/28/24 09:00 FiO2 30 08/28/24 10:19 Narrative Exam Physical Exam GENERAL: NAD, AAOx3 HEENT: Moist mucosa. Eyes open, symmetrical, & clear CARDIO: Heart RRR, no obvious murmurs PULM: Congested bilateral rhonchi on auscultation GI: Abdomen soft, nondistended, no pain on palpation. BSx4 SKIN/MSK/EXT: No wounds/rashes/edema/amputations, no pain on palpation. Pedal pulses present B/L NEURO: AAOx3, no focal neuro deficits, able to move all 4 extremities Objective Labs 08/29/24 04:37 08/29/24 04:37 Labs: Laboratory Results - last 24 hr 08/28/24 08/28/24 08/28/24 00:30 00:59 05:22 WBC 5.8 RBC 5.11 Hgb 14.1 Hct 44.1 MCV 86 MCH 27.6 MCHC 32.0 RDW Std Deviation 43.6 Plt Count 199 Neut % (Auto) 67 Lymph % (Auto) 18 Iron % (Auto) 12 Eos % (Auto) 2 Baso % (Auto) 1 Neut # (Auto) 3.9 Lymph # (Auto) 1.0 Iron # (Auto) 0.7 Eos # (Auto) 0.1 Baso # (Auto) 0.1 Immature Gran # (Auto) 0.02 H Absolute Nucleated RBC 0.00 Immature Gran % 0 Nucleated RBC % 0 PT 11.8 INR 1.1 APTT 30.0 Puncture Site Right Radial Left Radial ABG pH 7.33 L 7.29 L ABG pCO2 60 H 58 H ABG pO2 138 H 73 L D ABG HCO3 31 H 28 H ABG O2 Saturation 100 H 94 ABG Base Excess 4 H 0 Oxygen Liter Flow 6 FiO2 30 Sodium 142 Potassium 3.9 Chloride 104 Carbon Dioxide 30.0 Anion Gap 8 BUN 12 Creatinine 0.9 Estim Creat Clear Calc 53.1 L eGFR > 60 BUN/Creatinine Ratio [address] Glu mg/dL Hemoglobin A1c Calculated Osmolality 285 Lactic Acid 2.0 Calcium 9.5 Corrected Calcium 9.5 Phosphorus 2.9 Magnesium 1.9 Total Bilirubin 0.5 AST 20 ALT 13 Alkaline Phosphatase 98 Lactate Dehydrogenase 305 H Troponin I 0.035 B-Natriuretic Peptide 213 H Total Protein 7.3 Albumin 4.5 Globulin 2.8 Albumin/Globulin Ratio 1.6 Triglycerides Cholesterol LDL Cholesterol, Calc HDL Cholesterol Cholesterol/HDL Ratio Lipase 23 Procalcitonin 0.15 TSH Ur Collection Type Urine Color Urine Clarity Urine pH Ur Specific [place] Urine Protein Urine Glucose (UA) Urine Ketones Urine Blood Urine Nitrite Urine Bilirubin Urine Urobilinogen (Auto) Ur Leukocyte Esterase Urine RBC Urine WBC Ur Squamous Epith Cells Urine Bacteria 08/28/24 08/28/2408/28/25 05:30 05:30 06:30 WBC 5.6 RBC 4.67 Hgb 12.9 L Hct 40.3 L MCV 86 MCH 27.6 MCHC 32.0 RDW Std Deviation 43.7 Plt Count 146 D Neut % (Auto) 94 H Lymph % (Auto) 3 L Iron % (Auto) 3 Eos % (Auto) 0 Baso % (Auto) 0 Neut # (Auto) 5.3 Lymph # (Auto) 0.2 L Iron # (Auto) 0.1 Eos # (Auto) 0.0 Baso # (Auto) 0.0 Immature Gran # (Auto) 0.05 H Absolute Nucleated RBC 0.00 Immature Gran % 1 H Nucleated RBC % 0 PT 12.1 INR 1.1 APTT 30.9 Puncture Site ABG pH ABG pCO2 ABG pO2 ABG HCO3 ABG O2 Saturation ABG Base Excess Oxygen Liter Flow FiO2 Sodium 142 Potassium 4.3 Chloride 105 Carbon Dioxide 30.1 Anion Gap 7 BUN 14 Creatinine 0.9 Estim Creat Clear Calc 53.1 L eGFR > 60 BUN/Creatinine Ratio [address]ucose [address] Glu mg/dL 114 Hemoglobin A1c 5.6 Calculated Osmolality 287 Lactic Acid 2.1 H Calcium 8.2 L Corrected Calcium 8.3 L Phosphorus 3.4 Magnesium 1.7 Total Bilirubin 0.3 AST 15 ALT 11 Alkaline Phosphatase 86 Lactate Dehydrogenase Troponin I 0.062 H* Cancelled B-Natriuretic Peptide Total Protein 6.5 Albumin 3.9 D Globulin 2.6 Albumin/Globulin Ratio 1.5 Triglycerides 68 Cholesterol 144 LDL Cholesterol, Calc 76 HDL Cholesterol 54 Cholesterol/HDL Ratio 2.7 L Lipase Procalcitonin TSH 1.28 Ur Collection Type Urine Color Urine Clarity Urine pH Ur Specific [place] Urine Protein Urine Glucose (UA) Urine Ketones Urine Blood Urine Nitrite Urine Bilirubin Urine Urobilinogen (Auto) Ur Leukocyte Esterase Urine RBC Urine WBC Ur Squamous Epith Cells Urine Bacteria 08/28/24 08/28/24 08/28/24 07:41 10:43 10:50 WBC RBC Hgb Hct MCV MCH MCHC RDW Std Deviation Plt Count Neut % (Auto) Lymph % (Auto) Iron % (Auto) Eos % (Auto) Baso % (Auto) Neut # (Auto) Lymph # (Auto) Iron # (Auto) Eos # (Auto) Baso # (Auto) Immature Gran # (Auto) Absolute Nucleated RBC Immature Gran % Nucleated RBC % PT INR APTT Puncture Site ABG pH ABG pCO2 ABG pO2 ABG HCO3 ABG O2 Saturation ABG Base Excess Oxygen Liter Flow FiO2 Sodium Potassium Chloride Carbon Dioxide Anion Gap BUN Creatinine Estim Creat Clear Calc eGFR BUN/Creatinine Ratio Glucose Estimated Ave Glu mg/dL Hemoglobin A1c Calculated Osmolality Lactic Acid 2.8 H Cancelled Calcium Corrected Calcium Phosphorus Magnesium Total Bilirubin AST ALT Alkaline Phosphatase Lactate Dehydrogenase Troponin I B-Natriuretic Peptide Total Protein Albumin Globulin Albumin/Globulin Ratio Triglycerides Cholesterol LDL Cholesterol, Calc HDL Cholesterol Cholesterol/HDL Ratio Lipase Procalcitonin TSH Ur Collection Type Clean Catch Urine Color Lt-Yellow Urine Clarity Clear Urine pH 6.5 Ur Specific [place] 1.023 Urine Protein 1+ A Urine Glucose (UA) Negative Urine Ketones 1+ A Urine Blood Trace Urine Nitrite Negative Urine Bilirubin Negative Urine Urobilinogen (Auto) Negative Ur Leukocyte Esterase Negative Urine RBC 9 H Urine WBC 1 Ur Squamous Epith Cells < 1 Urine Bacteria None 08/28/24 11:31 WBC RBC Hgb Hct MCV MCH MCHC RDW Std Deviation Plt Count Neut % (Auto) Lymph % (Auto) Iron % (Auto) Eos % (Auto) Baso % (Auto) Neut # (Auto) Lymph # (Auto) Iron # (Auto) Eos # (Auto) Baso # (Auto) Immature Gran # (Auto) Absolute Nucleated RBC Immature Gran % Nucleated RBC % PT INR APTT Puncture Site Right Radial ABG pH 7.33 L ABG pCO2 54 H ABG pO2 99 D ABG HCO3 29 H ABG O2 Saturation 98 ABG Base Excess 2 Oxygen Liter Flow FiO2 30 Sodium Potassium Chloride Carbon Dioxide Anion Gap BUN Creatinine Estim Creat Clear Calc eGFR BUN/Creatinine Ratio Glucose Estimated Ave Glu mg/dL Hemoglobin A1c Calculated Osmolality Lactic Acid Calcium Corrected Calcium Phosphorus Magnesium Total Bilirubin AST ALT Alkaline Phosphatase Lactate Dehydrogenase Troponin I B-Natriuretic Peptide Total Protein Albumin Globulin Albumin/Globulin Ratio Triglycerides Cholesterol LDL Cholesterol, Calc HDL Cholesterol Cholesterol/HDL Ratio Lipase Procalcitonin [facility] Ur Collection Type Urine Color Urine Clarity Urine pH Ur Specific [place] Urine Protein Urine Glucose (UA) Urine Ketones Urine Blood Urine Nitrite Urine Bilirubin Urine Urobilinogen (Auto) Ur Leukocyte Esterase Urine RBC Urine WBC Ur Squamous Epith Cells Urine Bacteria ABG Interpretation ABG results: 08/28/24 08/28/24 08/28/24 00:59 05:22 11:31 ABG pH 7.33 L 7.29 L 7.33 L ABG pCO2 60 H 58 H 54 H ABG pO2 138 H 73 L D 99 D ABG HCO3 31 H 28 H 29 H ABG O2 Saturation 100 H 94 98 ABG Base Excess 4 H 0 2 Quality Measures Quality Measures sepsis Current suspected stage: sepsis Possible source: pulmonary Blood cultures ordered: yes Antibiotic ordered: Yes Advance care planning discussed with:: patient Assessment & Plan Assessment Current Active Medications: Generic Name Dose Route Start Last Admin Trade Name Freq PRN Reason Stop Dose Admin Acetaminophen 650 mg 08/28/24 05:09 Acetaminophen 325 Mg Tablet PO 09/27/24 05:08 Q6H PRN Fever >100 or pain 1-3 Acetylcysteine 3 ml 08/28/24 15:00 Acetylcysteine Rt Katarina 10% 4 Ml Nebu INH 09/27/24 14:59 Q4HRRT DEBO Albuterol/Ipratropium 3 ml 08/28/24 07:00 08/28/24 10:16 Albuterol/Ipratropium (Duoneb) Rt Katarina 3 Ml Nebu INH 09/27/24 06:59 3 ml Q4HRRT DEBO Administration Benzonatate 100 mg 08/28/24 05:38 Benzonatate 100 Mg Capsule PO 09/27/24 08:59 BID PRN Cough Protocol Enoxaparin Sodium 40 mg 08/28/24 09:00 08/28/24 09:37 Enoxaparin Sod Inj 40 Mg/0.4 Ml Syringe SC 09/11/24 08:59 40 mg QDAY DEBO Administration Finasteride 5 mg 08/28/24 09:00 Finasteride 5 Mg Tablet PO 09/27/24 08:59 QDAY DEBO Ceftriaxone Sodium 1,000 mg/ 50 mls @ 100 mls/hr 08/28/24 09:00 08/28/24 09:34 Sodium Chloride IV 09/04/24 08:59 100 mls/hr Q12HR DEBO Administration Azithromycin 250 mg/ Sodium 250 mls @ 250 mls/hr 08/29/24 09:00 Chloride IV 09/05/24 08:59 QDAY DEBO Ondansetron HCl 4 mg 08/28/24 05:09 Ondansetron Inj 2 Mg/Ml Inj 2 Ml IV 09/27/24 05:08 Q6H PRN NAUSEA OR VOMITING Protocol Prednisone 80 mg 08/28/24 21:00 Prednisone 20 Mg Tablet PO 09/04/24 11:06 BID DEBO Sodium Chloride 3 ml 08/28/24 00:45 Sodium Chloride Rt Katarina 0.9% 3 Ml Nebu INH 09/27/24 00:44 PRN PRN SOLN Tamsulosin HCl 0.4 mg 08/28/24 09:00 08/28/24 09:34 Tamsulosin Hcl 0.4 Mg Capsule PO 09/27/24 08:59 0.4 mg QDAY [facility] Administration Plan 84 y/o male with PMHx of BPH, COPD (on home oxygen 2 L) who is admitted for acute on chronic hypoxic respiratory failure and sepsis secondary to CAP and COPD exacerbation. #Acute on chronic hypoxic respiratory failure #Sepsis secondary to community-acquired pneumonia #Acute on chronic COPD exacerbation Patient at home uses 2 L of home oxygen however due to shortness of breath even increasing it to 4 L did not help and decided to bring the patient to the ED Sepsis due to 3/4 SIRS criteria, tachycardic, febrile (101), tachypnea (24) qSOFA: 1 points, 1.8 L sepsis bolus given Shortness of breath with respiratory rate above 24, heart rate above 95, and oxygen saturations below 92 we believe patient is in moderate COPD exacerbation using SANTOS criteria Patient received 250 mg methylprednisolone IV x 1 Lactate 2.0-> 2.8 Cocci IgM negative ? Ceftriaxone 1 g IV, ? Azithromycin 250 mg IV after 500 mg loading dose ? Follow-up blood cultures ? Follow-up Legionella ? Oxygen saturation goals 88 to 92%, wean down as tolerated ? Prednisone 80 mg twice daily ? DuoNebs every 4 hours ? Tessalon Perles as needed ? Chest physiotherapy ? BiPAP at bedtime ? Follow-up sputum cultures #Hypertensive urgency, improving Came in with 232 SBP Given hydralazine 10 mg in the ED ? Do not correct systolic blood pressure more than 25% within the first 24 hours #History of BPH ? Resumed home finasteride 5 mg by mouth ? Resumed home Flomax 0.4 mg by mouth Case discussed with my senior Dr. Cheng PGY-[address] Virgilio Mcdonnell MD PGY-1 Disposition: Telemetry DVT prophylaxis: Lovenox GI prophylaxis: Not indicated Diet: Cardiac CODE STATUS: Full code Attending Provider Attestation/Addendum Erika Wakefield DO, attest that I was physically present for the snow portions of the service and evaluated the patient with the resident and I reviewed and discussed the case with the resident and agree with the resident's findings and plans of care as documented above Patient seen and evaluated in the ED. Niece is at bedside stating that the patient began to have dyspnea last night and was subsequent brought to the ED. Patient had scattered wheezing and diminished breath signs bilaterally. He is currently on 4 L nasal cannula. Patient states that he ran out of his inhalers at home for several days which led to this acute COPD exacerbation. He denies any other sick contacts at home. He does endorse having copious productive sputum.Chest x-ray shows bilateral pneumonia. Continue with IV antibiotics, chest PT and breathing treatments with Mucomyst. Patient had already received 250 mg of Solu-Medrol in ED. Will start 40 mg of Solu-Medrol daily in AM. Will continue to titrate O2 as tolerated. Spoke with respiratory therapist, patient had a coughing spell after eating and has been on BiPAP since being transferred to the floor from ER. Will place n.p.o. at this time and keep patient on BiPAP. ABG appears to be improved.
[2024-08-28] MEDS: FINASTERIDE 5 MG TABLET PO (12:24)
[2024-08-28 12:59] LABS: Cocci Serology, IgM Negative (Negative)
[2024-08-28 13:51] LABS: Lactate (Lactic Acid) 2.4 mMol/L (0.4-2.0)
[2024-08-28] MEDS: SODIUM CHLORIDE 0.9% 1000 ML 1,000 ML 999 ML IV (14:04)
[2024-08-28] MEDS: ACETYLCYSTEINE RT SOL 10% 4 ML NEBU 3 ML INH ×3 (14:14→23:40)
[2024-08-28 16:49] LABS: Reflex Lactate? Y
[2024-08-28] MEDS: BENZONATATE 100 MG CAPSULE PO ×2 (16:59→21:11)
--- NOTE | 2024-08-28 17:45 | PC.NURSE ---
hand off from tineasha, pt comfortable in bed
[2024-08-29] VITALS (14 sets, daily range): BP systolic 120–176; BP diastolic 75–96; PULSE 70–110; RESP 17–30; TEMP 36–36.8; O2SAT 94–100
[2024-08-29] MEDS: ALBUTEROL/IPRATROPIUM (Duoneb) RT SOL 3 ML NEBU INH ×6 (03:45→23:10)
[2024-08-29] MEDS: ACETYLCYSTEINE RT SOL 10% 4 ML NEBU 3 ML INH ×6 (03:45→23:10)
[2024-08-29 05:23] LABS: Basophils % (Auto) 0 % (0-2.5); Eosinophils % (Auto) 0 % (0-10); Hematocrit 34.8 % (41.0-53.0); Hemoglobin 11.2 g/dL (13.5-16.0); Immature Granulocytes % (Auto) 0 % (0-0); Immature Granulocytes Auto 0.01 Thou/mm3 (0.00-0.00); Lymphocytes # (Auto) 0.6 Thou/mm3 (1.0-4.8); Lymphocytes % (Auto) 15 % (10-50); Mean Corpuscular HGB Conc 32.2 g/dl (31.0-37.0); Mean Corpuscular Hemoglobin 27.2 pg (25.0-35.0); Mean Corpuscular Volume 85 fL (80-100); Monocytes # (Auto) 0.7 Thou/mm3 (0.0-0.8); Monocytes % (Auto) 18 % (0-12); Neutrophils # (Auto) 2.7 Thou/mm3 (1.8-7.7); Neutrophils % (Auto) 67 % (37-80); Nucleated Red Blood Cell % 0 /100 WBC (0); Platelet Count 157 Thou/mm3 (140-440); RDW Standard Deviation 42.9 fL (35.1-43.9); Red Blood Count 4.12 Miln/mm3 (4.50-5.90)
[2024-08-29 05:34] LABS: INR 1.1 (0.9-1.3); Partial Thromboplastin Time 31.8 Seconds (22.0-36.0); Prothrombin Time 11.8 Seconds (9.0-12.2)
[2024-08-29 06:10] LABS: Alanine Aminotransferase 10 U/L (10-49); Albumin, Serum 3.3 gm/dL (3.4-4.8); Albumin/Globulin Ratio 1.4 (1.2-2.2); Alkaline Phosphatase 64 U/L (46-116); Anion Gap 4 (7-16); Aspartate Amino Transferase 12 U/L (0-34); BUN/Creatinine Ratio 26 Ratio (12-20); Bilirubin,Total 0.2 mg/dL (0.3-1.2); Blood Urea Nitrogen 21 mg/dL (9-23); Calcium 8.4 mg/dL (8.3-10.6); Carbon Dioxide 30.9 mMol/L (20.0-31.0); Chloride 106 mMol/L (98-107); Creatinine (Component) 0.8 mg/dL (0.6-1.3); Estimated Creatinine Clearance 53.5 mL/min (>60); Globulin 2.4 gm/dL (2.3-3.5); Glucose 117 mg/dL (74-106); Magnesium 1.9 mg/dL (1.6-2.6); Osmolality,Calculated 285 (275-295); Phosphorous 3.2 mg/dL (2.4-5.1); Potassium 4.1 mMol/L (3.4-5.1); Sodium 141 mMol/L (136-145); Thyroid Stimulating Hormone 2.33 uIU/mL (0.55-4.78); Total Protein 5.7 gm/dL (5.7-8.2); eGFR > 60 See Note
[2024-08-29] MEDS: BENZONATATE 100 MG CAPSULE PO ×2 (08:51→20:21)
[2024-08-29] MEDS: AZITHROMYCIN INJ 250 MG in SODIUM CHLORIDE 0.9% 250 ML 250 ML IV (08:51)
[2024-08-29] MEDS: ENOXAPARIN SOD INJ 40 MG/0.4 ML SYRINGE SC (08:51)
[2024-08-29] MEDS: NIFEdipine XL 30 MG TABCR 60 MG PO (08:51)
[2024-08-29] MEDS: TAMSULOSIN HCL 0.4 MG CAPSULE PO (08:51)
[2024-08-29] MEDS: cefTRIAXone 1,000 MG in SODIUM CHLORIDE 0.9% (Popper) 50 ML 100 MG IV (08:52)
[2024-08-29] MEDS: FINASTERIDE 5 MG TABLET PO (08:52)
[2024-08-29 11:13] LABS: Cocci Serology, IgG Negative (Negative)
--- NOTE | 2024-08-29 14:44 | PC.SS ---
Rounding Note: Plan is to continue to wean patient off BI-PAP. Possible d/c tomorrow.
--- NOTE | 2024-08-29 15:17 | ESPR_ITS ---
<Statement entered by Aliza Cheng MD - 08/30/24 18:01> Patient seen and examined at bedside. No acute overnight events reported. Patient feels better when using BiPAP however there was some concern with patient vomiting shortly after BiPAP was off. Will recommend patient to use BiPAP nocturnally, and take breaks and eat food when patient is awake. Will increase patient's steroid dose to twice daily due to significant wheezing persistent on exam. Will continue with breathing treatments and chest physiotherapy. All questions asked and answered. Patient agrees with current course of plan. I discussed with and supervised the underwriting intern physician who took care of this patient. I personally saw and examined the patient and discussed the assessment and plan with the entire medicine team, including my attending Dr. Poole, I agree with most of the assessment and plan as documented below Aliza Cheng M.D. PGY-2 Disclaimer: Despite multiple revisions, due to the dictation software being used, the document bellow may not be free of grammatical errors including phonetic/typographic errors. However, this does not deter from our commitment to providing health care in the patient's best interest in mind. Documentation for date of: 08/29/24 Subjective Subjective Interval history: Patient seen today at the bedside fine awake, alert, oriented x 3. No overnight events reported. Vital signs significant for high blood pressure patient's home medications were resumed. Solu-Medrol 40 mg daily increased to twice daily as patient on examination continues to have left-sided wheezing. Will continue current management at this time. Exam Vital Signs Temp Pulse Resp BP Pulse Ox O2 Del Method O2 Flow Rate 96.8 F 102 H 26 H 147/86 H 100 Nasal Cannula 4 08/29/24 12:00 08/29/24 14:46 08/29/24 14:46 08/29/24 12:00 08/29/24 14:46 08/29/24 12:00 08/29/24 14:46 FiO2 30 08/29/24 10:56 Narrative Exam Physical Exam GENERAL: NAD, AAOx3 HEENT: Moist mucosa. Eyes open, symmetrical, & clear CARDIO: Heart RRR, no obvious murmurs PULM: Left-sided wheezing GI: Abdomen soft, nondistended, no pain on palpation. BSx4 SKIN/MSK/EXT: No wounds/rashes/edema/amputations, no pain on palpation. Pedal pulses present B/L NEURO: AAOx3, no focal neuro deficits, able to move all 4 extremities Objective Labs 08/30/24 05:00 08/30/24 05:00 Labs: Laboratory Results - last 24 hr 08/28/24 08/28/24 08/29/24 05:30 17:11 04:37 WBC 4.0 RBC 4.12 L Hgb 11.2 L Hct 34.8 L MCV 85 MCH 27.2 MCHC 32.2 RDW Std Deviation 42.9 Plt Count 157 Neut % (Auto) 67 Lymph % (Auto) 15 [place] % (Auto) 18 H Eos % (Auto) 0 Baso % (Auto) 0 Neut # (Auto) 2.7 Lymph # (Auto) 0.6 L [place] # (Auto) 0.7 Eos # (Auto) 0.0 Baso # (Auto) 0.0 Immature Gran # (Auto) 0.01 H Absolute Nucleated RBC 0.00 Immature Gran % 0 Nucleated RBC % 0 PT 11.8 INR 1.1 APTT 31.8 Sodium 141 Potassium 4.1 Chloride 106 Carbon Dioxide 30.9 Anion Gap 4 L BUN 21 Creatinine 0.8 Estim Creat Clear Calc 53.5 L eGFR > 60 BUN/Creatinine Ratio 26 H Glucose 117 H D Calculated Osmolality 285 Lactic Acid 1.0 Calcium 8.4 Corrected Calcium 9.0 Phosphorus 3.2 Magnesium 1.9 Total Bilirubin 0.2 L AST 12 ALT 10 Alkaline Phosphatase 64 D Total Protein 5.7 Albumin 3.3 L D Globulin 2.4 Albumin/Globulin Ratio 1.4 TSH 2.33 Coccidioides IgG Ab Negative ABG Interpretation ABG results: 08/28/24 08/28/24 08/28/24 00:59 05:22 11:31 ABG pH 7.33 L 7.29 L 7.33 L ABG pCO2 60 H 58 H 54 H ABG pO2 138 H 73 L D 99 D ABG HCO3 31 H 28 H 29 H ABG O2 Saturation 100 H 94 98 ABG Base Excess 4 H 0 2 Quality Measures Quality Measures sepsis Current suspected stage: sepsis Possible source: pulmonary Blood cultures ordered: yes Antibiotic ordered: Yes Advance care planning discussed with:: patient Assessment & Plan Assessment Current Active Medications: Generic Name Dose Route Start Last Admin Trade Name Freq PRN Reason Stop Dose Admin Acetaminophen 650 mg 08/28/24 05:09 Acetaminophen 325 Mg Tablet PO 09/27/24 05:08 Q6H PRN Fever >100 or pain 1-3 Acetylcysteine 3 ml 08/28/24 15:00 08/29/24 14:40 Acetylcysteine Rt Katarina 10% 4 Ml Nebu INH 09/27/24 14:59 3 ml Q4HRRT DEBO Administration Albuterol/Ipratropium 3 ml 08/28/24 07:00 08/29/24 14:40 Albuterol/Ipratropium (Duoneb) Rt Katraina 3 Ml Nebu INH 09/27/24 06:59 3 ml Q4HRRT DEBO Administration Benzonatate 100 mg 08/28/24 15:00 08/29/24 08:51 Benzonatate 100 Mg Capsule PO 09/27/24 14:59 100 mg BID DEBO Administration Protocol Enoxaparin Sodium 40 mg 08/28/24 09:00 08/29/24 08:51 Enoxaparin Sod Inj 40 Mg/0.4 Ml Syringe SC 09/11/24 08:59 40 mg QDAY DEBO Administration Finasteride 5 mg 08/28/24 09:00 08/29/24 08:52 Finasteride 5 Mg Tablet PO 09/27/24 08:59 5 mg QDAY DEBO Administration Azithromycin 250 mg/ Sodium 250 mls @ 250 mls/hr 08/29/24 09:00 08/29/24 08:51 Chloride IV 09/05/24 08:59 250 mls/hr QDAY DEBO Administration Ceftriaxone Sodium 1,000 mg/ 50 mls @ 100 mls/hr 08/29/24 09:00 08/29/24 08:52 Sodium Chloride IV 09/05/24 08:59 100 mls/hr QDAY DEBO Administration Methylprednisolone Sodium Succinate 40 mg 08/29/24 21:00 Methylprednisolone Sod Succ 40 Mg Vial IVP 09/05/24 20:59 Q12HR DEBO Nifedipine 60 mg 08/29/24 09:00 08/29/24 08:51 Nifedipine Xl 30 Mg Tabcr PO 09/28/24 08:59 60 mg QDAY DEBO Administration Ondansetron HCl 4 mg 08/28/24 05:09 Ondansetron Inj 2 Mg/Ml Inj 2 Ml IV 09/27/24 05:08 Q6H PRN NAUSEA OR VOMITING Protocol Sodium Chloride 3 ml 08/28/24 00:45 Sodium Chloride Rt Katarina 0.9% 3 Ml Nebu INH 09/27/24 00:44 PRN PRN SOLN Tamsulosin HCl 0.4 mg 08/28/24 09:00 08/29/24 08:51 Tamsulosin Hcl 0.4 Mg Capsule PO 09/27/24 08:59 0.4 mg QDAY DEBO Administration Trazodone HCl 100 mg 08/29/24 21:00 Trazodone Hcl 50 Mg Tablet PO 09/28/24 20:59 HS DEBO Plan 84 y/o male with PMHx of BPH, COPD (on home oxygen 2 L) who is admitted for acute on chronic hypoxic respiratory failure and sepsis secondary to CAP and COPD exacerbation. #Acute on chronic hypoxic respiratory failure #Sepsis secondary to community-acquired pneumonia #Acute on chronic COPD exacerbation Patient at home uses 2 L of home oxygen however due to shortness of breath even increasing it to 4 L did not help and decided to bring the patient to the ED Sepsis due to 3/4 SIRS criteria, tachycardic, febrile (101), tachypnea (24) qSOFA: 1 points, 1.8 L sepsis bolus given Shortness of breath with respiratory rate above 24, heart rate above 95, and oxygen saturations below 92 we believe patient is in moderate COPD exacerbation using SANTOS criteria Patient received 250 mg methylprednisolone IV x 1 Lactate 2.0-> 2.8--normal Cocci IgM negative Blood cultures negative in 24 hours ? Ceftriaxone 1 g IV, ? Azithromycin 250 mg IV after 500 mg loading dose ? Follow-up Legionella ? Oxygen saturation goals 88 to 92%, wean down as tolerated ? Solu-Medrol 40 mg twice daily, adjusted from once a day ? DuoNebs every 4 hours ? Tessalon Perles as needed ? Chest physiotherapy ? BiPAP at bedtime ? Follow-up sputum cultures #Hypertensive urgency, improving Came in with 232 SBP Given hydralazine 10 mg in the ED ? Nifedipine 60 mg daily resumed as taken at home #History of BPH ? Resumed home finasteride 5 mg by mouth ? Resumed home Flomax 0.4 mg by mouth Case discussed with my senior Dr. Cheng PGY-[address] Virgilio Mcdonnell MD PGY-1 Disposition: Telemetry DVT prophylaxis: Lovenox GI prophylaxis: Not indicated Diet: Cardiac CODE STATUS: Full code Attending Provider Attestation/Addendum Erika Wakefield DO, attest that I was physically present for the snow portions of the service and evaluated the patient with the resident and I reviewed and discussed the case with the resident and agree with the resident's findings and plans of care as documented above Patient seen and evaluated this Am. Patient had desatted after ambulating to the bathroom, but resolved with rest. Patient continues to have some wheezing and rhonchi in b/l lung chatman. Will taper steroids and continue with breathing treatments at this time. Patient states he feels improved with BiPap. Will continue wt current treatment and BiPap at night only. Anticipate Dc in Am if patient condition continues to improve
--- NOTE | 2024-08-29 17:06 | PC.SS ---
BREAST TRIMMER informed by patient's niece, Malka Coffey ; patient?s oxygen tanks at home are empty.? Chart review indicates that oxygen vendor is [facility].? BREAST TRIMMER spoke to [facility] staff to request delivery of oxygen to patient?s bedside.? [facility] staff, Hortencia; that vendor can delivery oxygen to patient?s bedside tonight.? BREAST TRIMMER updated patient, patient?s niece and bedside nurse.
[2024-08-29] MEDS: traZODone HCL 50 MG TABLET 100 MG PO (20:21)
[2024-08-30] VITALS (11 sets, daily range): BP systolic 101–118; BP diastolic 64–73; PULSE 72–98; RESP 18–25; TEMP 36.1–36.6; O2SAT 92–100; BMI 19.8
[2024-08-30] MEDS: ACETYLCYSTEINE RT SOL 10% 4 ML NEBU 3 ML INH ×3 (02:00→14:10)
[2024-08-30] MEDS: ALBUTEROL/IPRATROPIUM (Duoneb) RT SOL 3 ML NEBU INH ×4 (02:00→14:10)
[2024-08-30 05:47] LABS: Basophils % (Auto) 0 % (0-2.5); Eosinophils % (Auto) 0 % (0-10); Hematocrit 33.3 % (41.0-53.0); Hemoglobin 10.7 g/dL (13.5-16.0); Immature Granulocytes % (Auto) 0 % (0-0); Immature Granulocytes Auto 0.01 Thou/mm3 (0.00-0.00); Lymphocytes # (Auto) 0.5 Thou/mm3 (1.0-4.8); Lymphocytes % (Auto) 11 % (10-50); Mean Corpuscular HGB Conc 32.1 g/dl (31.0-37.0); Mean Corpuscular Hemoglobin 27.4 pg (25.0-35.0); Mean Corpuscular Volume 85 fL (80-100); Monocytes # (Auto) 0.2 Thou/mm3 (0.0-0.8); Monocytes % (Auto) 5 % (0-12); Neutrophils # (Auto) 3.4 Thou/mm3 (1.8-7.7); Neutrophils % (Auto) 83 % (37-80); Nucleated Red Blood Cell % 0 /100 WBC (0); Platelet Count 171 Thou/mm3 (140-440); RDW Standard Deviation 42.1 fL (35.1-43.9); Red Blood Count 3.91 Miln/mm3 (4.50-5.90); White Blood Count 4.1 Thou/mm3 (3.8-10.6)
[2024-08-30 06:29] LABS: Alanine Aminotransferase 9 U/L (10-49); Albumin, Serum 3.4 gm/dL (3.4-4.8); Albumin/Globulin Ratio 1.5 (1.2-2.2); Alkaline Phosphatase 64 U/L (46-116); Anion Gap 3 (7-16); Aspartate Amino Transferase 12 U/L (0-34); BUN/Creatinine Ratio 29 Ratio (12-20); Bilirubin,Total 0.3 mg/dL (0.3-1.2); Blood Urea Nitrogen 26 mg/dL (9-23); Calcium 8.6 mg/dL (8.3-10.6); Calcium (Corrected) 9.1 mg/dL (8.5-10.1); Carbon Dioxide 34.2 mMol/L (20.0-31.0); Chloride 103 mMol/L (98-107); Creatinine (Component) 0.9 mg/dL (0.6-1.3); Estimated Creatinine Clearance 46.6 mL/min (>60); Globulin 2.2 gm/dL (2.3-3.5); Glucose 146 mg/dL (74-106); Osmolality,Calculated 287 (275-295); Phosphorous 3.8 mg/dL (2.4-5.1); Potassium 4.5 mMol/L (3.4-5.1); Sodium 140 mMol/L (136-145); Total Protein 5.6 gm/dL (5.7-8.2); eGFR > 60 See Note
--- NOTE | 2024-08-30 07:23 | PD.RESPRO ---
Documentation for date of: 08/30/24 Exam Vital Signs Temp Pulse Resp BP Pulse Ox O2 Del Method O2 Flow Rate 97.0 F 78 18 118/68 99 BiPAP 2 08/30/24 04:00 08/30/24 06:50 08/30/24 06:50 08/30/24 04:00 08/30/24 06:50 08/30/24 04:00 08/30/24 06:50 FiO2 30 08/30/24 06:50 Objective Labs 08/30/24 05:00 08/30/24 05:00 Labs: Laboratory Results - last 24 hr 08/28/24 08/30/24 05:30 05:00 WBC 4.1 RBC 3.91 L Hgb 10.7 L Hct 33.3 L MCV 85 MCH 27.4 MCHC 32.1 RDW Std Deviation 42.1 Plt Count 171 Neut % (Auto) 83 H Lymph % (Auto) 11 [place] % (Auto) 5 Eos % (Auto) 0 Baso % (Auto) 0 Neut # (Auto) 3.4 Lymph # (Auto) 0.5 L [place] # (Auto) 0.2 Eos # (Auto) 0.0 Baso # (Auto) 0.0 Immature Gran # (Auto) 0.01 H Absolute Nucleated RBC 0.00 Immature Gran % 0 Nucleated RBC % 0 Sodium 140 Potassium 4.5 Chloride 103 Carbon Dioxide 34.2 H Anion Gap 3 L BUN 26 H Creatinine 0.9 Estim Creat Clear Calc 46.6 L eGFR > 60 BUN/Creatinine Ratio 29 H Glucose 146 H Calculated Osmolality 287 Calcium 8.6 Corrected Calcium 9.1 Phosphorus 3.8 Magnesium 2.0 Total Bilirubin 0.3 AST 12 ALT 9 L Alkaline Phosphatase 64 Total Protein 5.6 L Albumin 3.4 Globulin 2.2 L Albumin/Globulin Ratio 1.5 Coccidioides IgG Ab Negative ABG Interpretation ABG results: 08/28/24 08/28/24 08/28/24 00:59 05:22 11:31 ABG pH 7.33 L 7.29 L 7.33 L ABG pCO2 60 H 58 H 54 H ABG pO2 138 H 73 L D 99 D ABG HCO3 31 H 28 H 29 H ABG O2 Saturation 100 H 94 98 ABG Base Excess 4 H 0 2 Quality Measures Quality Measures sepsis Possible source: pulmonary Blood cultures ordered: yes Assessment & Plan Assessment Current Active Medications: Generic Name Dose Route Start Last Admin Trade Name Freq PRN Reason Stop Dose Admin Acetaminophen 650 mg 08/28/24 05:09 Acetaminophen 325 Mg Tablet PO 09/27/24 05:08 Q6H PRN Fever >100 or pain 1-3 Acetylcysteine 3 ml 08/28/24 15:00 08/30/24 06:48 Acetylcysteine Rt Katarina 10% 4 Ml Nebu INH 09/27/24 14:59 3 ml Q4HRRT DEBO Administration Albuterol/Ipratropium 3 ml 08/28/24 07:00 08/30/24 06:48 Albuterol/Ipratropium (Duoneb) Rt Katarina 3 Ml Nebu INH 09/27/24 06:59 3 ml Q4HRRT DEBO Administration Benzonatate 100 mg 08/28/24 15:00 08/29/24 20:21 Benzonatate 100 Mg Capsule PO 09/27/24 14:59 100 mg BID DEBO Administration Protocol Enoxaparin Sodium 40 mg 08/28/24 09:00 08/29/24 08:51 Enoxaparin Sod Inj 40 Mg/0.4 Ml Syringe SC 09/11/24 08:59 40 mg QDAY DEBO Administration Finasteride 5 mg 08/28/24 09:00 08/29/24 08:52 Finasteride 5 Mg Tablet PO 09/27/24 08:59 5 mg QDAY DEBO Administration Azithromycin 250 mg/ Sodium 250 mls @ 250 mls/hr 08/29/24 09:00 08/29/24 08:51 Chloride IV 09/05/24 08:59 250 mls/hr QDAY DEBO Administration Ceftriaxone Sodium 1,000 mg/ 50 mls @ 100 mls/hr 08/29/24 09:00 08/29/24 08:52 Sodium Chloride IV 09/05/24 08:59 100 mls/hr QDAY DEBO Administration Methylprednisolone Sodium Succinate 40 mg 08/29/24 21:00 08/29/24 20:19 Methylprednisolone Sod Succ 40 Mg Vial IVP 09/05/24 20:59 40 mg Q12HR DEBO Administration Nifedipine 60 mg 08/29/24 09:00 08/29/24 08:51 Nifedipine Xl 30 Mg Tabcr PO 09/28/24 08:59 60 mg QDAY DEBO Administration Ondansetron HCl 4 mg 08/28/24 05:09 Ondansetron Inj 2 Mg/Ml Inj 2 Ml IV 09/27/24 05:08 Q6H PRN NAUSEA OR VOMITING Protocol Sodium Chloride 3 ml 08/28/24 00:45 Sodium Chloride Rt Katarina 0.9% 3 Ml Nebu INH 09/27/24 00:44 PRN PRN SOLN Tamsulosin HCl 0.4 mg 08/28/24 09:00 08/29/24 08:51 Tamsulosin Hcl 0.4 Mg Capsule PO 09/27/24 08:59 0.4 mg QDAY DEBO Administration Trazodone HCl 100 mg 08/29/24 21:00 08/29/24 20:21 Trazodone Hcl 50 Mg Tablet PO 09/28/24 20:59 100 mg HS DEBO Administration
[2024-08-30] MEDS: Artificial Tears 225 DROP/15 ML BTL BOTH EYES (08:35)
[2024-08-30] MEDS: cefTRIAXone 1,000 MG in SODIUM CHLORIDE 0.9% (Popper) 50 ML 100 MG IV (08:36)
--- NOTE | 2024-08-30 09:23 | PC.SS ---
BULB GROWER followed up erich TREVIÑO about pt's 02 and Lucero stated it was delivered at bedside and the rest at home. BULB GROWER to follow up with nurse
[2024-08-30] MEDS: AZITHROMYCIN INJ 250 MG in SODIUM CHLORIDE 0.9% 250 ML 250 ML IV (09:45)
[2024-08-30] MEDS: NIFEdipine XL 30 MG TABCR 60 MG PO (09:45)
[2024-08-30] MEDS: FINASTERIDE 5 MG TABLET PO (09:46)
[2024-08-30] MEDS: BENZONATATE 100 MG CAPSULE PO (09:46)
[2024-08-30] MEDS: ENOXAPARIN SOD INJ 40 MG/0.4 ML SYRINGE SC (09:46)
[2024-08-30] MEDS: TAMSULOSIN HCL 0.4 MG CAPSULE PO (09:46)
--- NOTE | 2024-08-30 10:19 | ESDS_ITS ---
<Statement entered by Erika Poole DO - 08/31/24 13:34> I, Erika Poole DO, attest that I was physically present for the snow portions of the service and evaluated the patient with the resident and I reviewed and discussed the case with the resident and agree with the resident's findings and plans of care as documented above Planned Discharge Date 08/30/24 DS: Providers Provider Date of admission: 08/28/24 05:07 Primary care physician: Physician No Primary/Family Admitting Provider: Christy Moreno MD Attending Provider on Admission: Erika Poole DO Consults: 08/28/24 12:58 [facility] Referral - Transportation Routine Comment: Positive screening for transportation needs. Attending Provider on DC: Beth Kelly MD Discharging Provider: Beth Kelly MD DS: Diagnosis Problem List Completed Was Problem List Reviewed/Reconciled?: Yes Hospital Course Hospital Course Hospital course: 84-year-old man with past medical history of COPD on 2 L home oxygen, BPH, hypertension who came to the ED with chief complaint of shortness of breath. Per patient family member has been out of oxygen as well as inhalers and DuoNebs at home. Patient and family member daughter at the bedside stated that he has been presenting 3 days of increased cough, sputum production and shortness of breath for which he decided to come to the ED patient denied any sick contacts at home, chills, fevers or any other associated symptom on arrival. At the ED patient was febrile, tachycardic and tachypneic, hypertensive and hypoxic saturating 88% on room air. Significant labs showed lactic acidosis, ABG showed hypercapnia. Chest x-ray showed bilateral pneumonia more pronounced on the right. Sepsis alert was called and patient received DuoNebs, steroids IV fluids per sepsis protocol IV antibiotics Rocephin and azithromycin as well as hydralazine and patient was admitted for further treatment and management of hypertensive emergency, acute on chronic hypoxic and hypercapnic respiratory failure secondary to COPD exacerbation in the setting of community-acquired pneumonia. During hospital course patient required BiPAP to improve hypoxia and hypercapnia. Today at the bedside patient is AO x 3, respond to questions probably saturating 97% on 2 L oxygen per nasal cannula, endorsed that he feeling well that he wants to go home, worked with physical therapy otherwise he was shortness of breath if he was walking distances for which physical therapy recommend wheelchair. Patient is safe and stable for discharge all questions were answered recommendation were given to come to the ED at any time if he is not feeling well or symptoms did not improve. Patient will need to follow-up with PCP in 1 week after this ? Continue azithromycin 500 mg p.o. daily for 2 more days ? Augmentin 500/125 p.o. twice daily for 2 more days ? Medrol pack ? Home oxygen as needed #Acute on chronic hypoxic respiratory failure improved #Sepsis secondary to community-acquired pneumonia resolved #Acute on chronic COPD exacerbation resolved #Hypertensive urgency resolved #History of BPH Patient discussed with attending Dr Virgilio Kelly MD PGY-3 Disclaimer: Despite multiple revisions, due to the dictation software being used, the document bellow may not be free of grammatical errors including phonetic/typographic errors. However, this does not deter from our commitment to providing health care in the patient's best interest in mind. Time Spent with Patient Time attestation: Total time spent providing and/or coordinating discharge services: Time spent: Greater than 30 minutes Exam Vital Signs Temp Pulse Resp BP Pulse Ox O2 Del Method O2 Flow Rate 97.7 F 98 24 H 105/68 92 L BiPAP 2 08/30/24 08:00 08/30/24 09:45 08/30/24 08:00 08/30/24 09:45 08/30/24 08:00 08/30/24 08:00 08/30/24 08:00 FiO2 30 08/30/24 08:00 Narrative Exam General: No acute distress, thin, cachectic edentulous HEENT: NC/AT, PERRL, EOMI, Good conjugate gaze, moist mucous membranes. Neck: Supple, No masses, No adenopathy, carotid pulse 2+ bilaterally without bruits, No JVD, normal range of motion. Chest: Symmetrical, atraumatic, and with equal expansion , Nontender on palpation no deformity and no crepitus. CVS: S1 and S2 present, Regular rate and rhythm, No murmurs, rubs or gallops perceived during auscultation. Lungs: Normal respiratory effort, CTAB, no wheezing, rhonchi or rales perceived during auscultation, No intercostal or subcostal retraction. Abdomen : Soft, no tenderness to palpation, no guarding ,no rebound, +BS, no organomegaly. Extremities: No edema, warm well perfused, normal tone and ROM, strength and sensation intact, cap refill less than 2, +2 dp equal bilaterally, able to move all 4 extremities spontaneously. Skin: Intact, no rashes, no lesions, no erythema or jaundice noted Neuro: AOx4, reflex symmetric and sensation normal, no focal neurologic deficits noted, GCS 15 Psych: Appropriate mood and affect. Discharge Plan Plan Patient Disposition: HOME (Self Care) Patient condition on transfer: Stable Care Plan Goals: Translated using Ullink Translate: Se respondieron todas las preguntas y se juwan la recomendaci?n de acudir al servicio de urgencias en cualquier momento si se sent?a jorge, y hacer un seguimiento con el m?dico de atenci?n primaria 1 semana despu?s del jass. El paciente ser? dado de jass y regresar? a casa con: ? Aerosol de albuterol seg?n sea necesario cada 6 horas ? Nebulizaciones de albuterol 4 veces al d?a seg?n sea necesario ? Amoxicilina clavulanato 500-125 mg por v?a oral dos veces al d?a roberto carlos 2 d?as m?s ? Azitromicina 500 mg por v?a oral diariamente roberto carlos 2 d?as m?s ? Inhalador de aerosol de fluticasona salmeterol 2 inhalaciones cada 12 horas ? [place] de metilprednisolona, ??black seg?n lo indicado ? Nifedipina 60 mg por v?a oral diariamente ? Spiriva Respimat 2 inhalaciones diarias ? Trazodona 100 mg por v?a oral diariamente todas las noches ? Continuar con ox?héctor en casa seg?n sea necesario Prescriptions/Referrals Prescriptions/Med Rec: New trazodone 100 mg tablet 100 mg PO QDAY Qty: 30 0RF Spiriva Respimat 2.5 mcg/actuation mist 2 puff inhalation QDAY Qty: 4 0RF nifedipine 60 mg tablet extended release 60 mg PO QDAY 30 Days Qty: 30 0RF fluticasone propion-salmeterol 230-21 mcg/actuation HFA aerosol inhaler 2 puff inhalation Q12H 30 Days Qty: 12 0RF albuterol sulfate 90 mcg/actuation aerosol powdr breath activated 2 inh inhalation Q6H PRN (Reason: shortness of breath or wheezing) 30 Days Qty: 1 0RF methylprednisolone [Medrol (Prabhjot)] 4 mg tablets,dose pack 4 mg PO QAM Qty: 21 0RF amoxicillin-pot clavulanate [Augmentin] 500-125 mg tablet 1 tab PO BID 2 Days Qty: 4 0RF azithromycin 500 mg tablet 500 mg PO QDAY 2 Days Qty: 2 0RF Rx Instructions: start on day 2 of therapy ipratropium-albuterol 0.5 mg-3 mg(2.5 mg base)/3 mL solution for nebulization 3 ml inhalation Q6H PRN (Reason: shortness of breath) 30 Days Qty: 180 0RF Discontinued albuterol sulfate 90 mcg/actuation HFA aerosol inhaler 2 puff INHALATION Q6H PRN (Reason: Shortness Of Breath Or Wheezing) Qty: 8.5 3RF albuterol sulfate 1.25 mg/3 mL solution for nebulization 1.25 mg inhalation QID PRN (Reason: shortness of breath or wheezing) Qty: 120 5RF Spiriva Respimat 2.5 mcg/actuation mist 2 puff inhalation QAM Qty: 4 5RF Rx Instructions: To replace Trelegy fluticasone propion-salmeterol [Advair HFA] 230-21 mcg/actuation HFA aerosol inhaler 2 puff inhalation BID Qty: 12 5RF Rx Instructions: To replace trelegy along with Spiriva trazodone 100 mg tablet 100 mg PO QDAY nifedipine 60 mg tablet extended release 60 mg PO QDAY Referrals: No Primary/Family,Physician [Primary Care Provider] - Patient/Caregiver Discharge Instructions Meds to Beds: No Discharge Activity: activity as tolerated Print Language: Welsh Stand Alone Forms: Aimee Award Info., Patient Portal Info Letter Discharge Order Discharge Orders: Discharge (Routine); Ordered 08/30/24 Ordered By: Beth Kelly Quality Discharge Quality Measures VTE prophylaxis
--- NOTE | 2024-08-30 12:22 | PC.NURSE ---
Per PT, pt can walk independently but only short distances so he needs a wheelchair at home
--- NOTE | 2024-08-30 12:24 | PC.PT ---
Patient will need wc secondary to patient unable long distance due to dyspnea and has poor activity tolerance.
--- NOTE | 2024-08-31 16:28 | PC.SS ---
SS was asked about RX at local pharmacy and team assisting pt with medi-ellis;
[2024-09-01 07:05] LABS: Legionella Ag, EIA, Urine* NOT DETECTED
== END 2024-08-30 15:16 | disposition home or self-care (01) | DRG 871 ==
LOC: SERX 03:12 → SERHOLD 05:37 → S2NX 10:00
PROVIDERS: Student in an Organized Health Care Education/Training Program; Admitting Provider Internal Medicine; Emergency Provider Emergency Medicine; Visit Provider Internal Medicine
DX: A41.9 Sepsis, unspecified organism (principal); J18.9 Pneumonia, unspecified organism; J96.22 Acute and chronic respiratory failure with hypercapnia; J96.21 Acute and chronic respiratory failure with hypoxia; J44.0 Chronic obstructive pulmonary disease with (acute) lower respiratory infection; J44.1 Chronic obstructive pulmonary disease with (acute) exacerbation; I16.1 Hypertensive emergency; E87.20 Acidosis, unspecified; I10 Essential (primary) hypertension; I16.0 Hypertensive urgency; N40.0 Benign prostatic hyperplasia without lower urinary tract symptoms; Z87.891 Personal history of nicotine dependence; Z99.81 Dependence on supplemental oxygen
CPT/HCPCS: 36415; 36600; 71045; 80053; 80061; 81001; 82803; 83036; 83605; 83615; 83690; 83735; 83880; 84100; 84145; 84443; 84484; 85025; 85610; 85730; 86331; 86635; 87040; 87081; 87086; 87205; 87400; 87449; 87811; 93005; 94640; 94644; 94660; 94667; 96365; 96367; 96372; 96374; 96375; 97162; 99291; 99292; A9270; J0131; J0360; J0456; J0696; J1650; J2060; J2919; J7030; J7050

== ENCOUNTER 2024-09-02 23:36 | Inpatient (IN) | payer MEDICARE, MEDICAID, SELFPAY ==
--- NOTE | 2024-09-02 23:40 | XR_ITS ---
Examination: AP chest single view Technique one AP portable upright chest single view Exam date and time: 2024 10:55 PM Comparison August 28, 2024 Indications: Shortness of breath today. Findings: COPD with moderate hyperexpansion. Normal heart size Bronchitis versus early bronchopneumonia at the lung bases Impression: COPD Basilar bronchitis versus early bronchopneumonia, clinical correlation advised
--- NOTE | 2024-09-02 23:45 | PD.EDADULT ---
ED General RME/HPI General Chief complaint: Shortness of Breath/Dyspnea Stated complaint: SOB Time Seen by Provider: 09/03/24 00:35 Arrival date/time: 09/02/24 23:36 RME / HPI RME / HPI narrative: Patient is a 84 years old male with PMH of COPD on 2 L home oxygen, BPH, hypertension, recent admission for PNA and COPD exacerbation presented due to SOB. He was discharged from [facility] on 08/30/2024 after admission for CAP and COPD exacerbation. He was prescribed Augmenting, azithromycin and medrol pack and reports was taking medications as prescribed. He is using home oxygen and on 2L. He reports he was feeling fine until today afternoon when he suddenly developed difficulty breething. He denies any chest pain, abdominal pain, dysuria, fever, chills, nausea, vomiting. Related Data Home Medications ?Medication ?Instructions ?Recorded ?Confirmed amoxicillin 500 mg-potassium 1 tab PO Q12H 09/03/24 09/03/24 clavulanate 125 mg tablet azithromycin 500 mg tablet 500 mg PO QDAY 09/03/24 09/03/24 Previous Rx's ?Medication ?Instructions ?Recorded albuterol sulfate 90 mcg/actuation 2 inh inhalation Q6H PRN shortness 08/30/24 breath activated powder inhaler of breath or wheezing 1 month #1 ea fluticasone propionate 230 2 puff inhalation Q12H 1 month #12 08/30/24 mcg-salmeterol 21 mcg/actuation grams HFA inhaler ipratropium 0.5 mg-albuterol 3 mg 3 ml inhalation Q6H PRN shortness 08/30/24 (2.5 mg base)/3 mL nebulization of breath 1 month #180 mL soln methylprednisolone 4 mg tablets in 4 mg PO QAM #21 tabs 08/30/24 a dose pack (Medrol (Prabhjot)) nifedipine 60 mg tablet,extended 60 mg PO QDAY 1 month #30 tabs 08/30/24 release tiotropium bromide 2.5 2 puff inhalation QDAY #4 grams 08/30/24 mcg/actuation mist for inhalation (Spiriva Respimat) trazodone 100 mg tablet 100 mg PO QDAY #30 tabs 08/30/24 Allergies Allergy/AdvReac Type Severity Reaction Status Date / Time No Known Allergies Allergy Verified 05/19/24 09:52 Review of Systems Review of Systems Systems Reviewed: All systems reviewed, normal except as documented ED Exam Narrative Physical exam: Gen: Well-developed cachexic male. HEENT: NCAT, PERRLA, EOMI, MMM, anicteric conjunctivae. CVS: normal S1 and S2. Regular tachycardia. No M/R/G. Resp: decreased BS B/L. No rhonchi, rales, crackles or wheezing. Abd: soft, non-tender, non-distended. BS+ in all 4 quadrants. MSK: Good ROM in BUE & BLE. No edema or rash. Neuro: CN II-XII grossly intact. Strength 5/5 in BUE & BLE. Alert and oriented x3. Psych: appropriate mood and affect. Course Course Course Narrative: 0000: started on BiPAP. 0040: sepsis alert. Given Zosyn, 1L NS. Cultures taken. 0400: CTA negative for PE. 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 Q4H START 00 Care 09/02/24 23:56 Active Continuous Pulse Oximetry NOW Care 09/02/24 23:56 Completed Decision to Admit X1 Care 09/03/24 03:56 Completed EKG (ED ONLY) *Do not use* NOW Care 09/02/24 23:41 Completed IV [Insert IV] NOW Care 09/02/24 23:40 Active Strict Intake and Output Routine Care 09/03/24 00:[address] angio chest Stat Exams 09/03/24 01:20 Taken CXRP [XR chest 1V portable] Stat Exams 09/02/24 23:40 Taken EKG (ED Only) Stat Exams 09/02/24 23:40 Ordered ABG [Arterial Blood Gas] Stat Lab 09/03/24 00:38 Completed ABG [Arterial Blood Gas] Stat Lab 09/03/24 02:56 Completed Blood Culture (Lab) Stat Lab 09/03/24 00:13 Received CBC Stat Lab 09/02/24 23:41 Completed CMP [Comprehensive Metabolic Panel] Stat Lab 09/02/24 23:42 Completed Drug Screen,Urine Stat Lab 09/02/24 23:48 Ordered Lactate (Lactic Acid) Stat Lab 09/02/24 23:42 Completed Magnesium Stat Lab 09/02/24 23:42 Completed Partial Thromboplastin Time Stat Lab 09/03/24 00:07 Completed Procalcitonin Stat Lab 09/02/24 23:42 Completed Prothrombin Time with INR Stat Lab 09/03/24 00:07 Completed Troponin I Stat Lab 09/02/24 23:42 Completed Urinalysis Stat Lab 09/03/24 00:40 Ordered Urine Culture Stat Lab 09/03/24 00:40 Ordered Albuterol/Ipratr Rt Katarina [Duoneb Rt Katarina] Med 09/03/24 00:12 Discontinued 3 ml INH X1 ONE LORazepam [Ativan Inj] Med 09/03/24 01:04 Discontinued 1 mg IVP X1 ONE Magnesium Sulfate 1 gm Ivpb [Magnesium Sulfate Ivpb] Med 09/03/24 04:19 Discontinued 1 gm in 100 ml IV X1 Piper/Tazo 3.375 gm Premix [Zosyn] Med 09/03/24 00:39 Discontinued 3.375 gm in 50 ml IV X1 Sodium Chloride 0.9% 1000 ml [Ns] 1,000 ml Med 09/03/24 00:39 Discontinued IV 999 mls/hr Sodium Chloride 0.9% 500 ml [Ns] 500 ml Med 09/03/24 01:03 Discontinued IV 999 mls/hr BiPAP / CPAP NOW RT 09/03/24 00:18 Active Oxygen Delivery NOW RT 09/02/24 23:41 Active Vital Signs Vital signs: Vital Signs Pulse Rate 118 H 09/03/24 00:21 Respiratory Rate 24 H 09/03/24 00:21 Pulse Oximetry (%) 96 09/03/24 00:21 Fraction of Inspired Oxygen 30 09/03/24 00:21 Procedures -ED EKG Interpretation #1: Date of EK09/03/24 Time of EK:52 Rate: 107 Interpretation: Reviewed by me EKG Impression: PVCs and Sinus tachycardia MDM Patient data External records reviewed:: [facility] previous records and EMS form Clinical information provided by:: patient and EMS Social determinants that could affect healthcare access:: none Patient has the following chronic illnesses:: COPD on 2 L home oxygen, BPH, hypertension, recent admission for PNA and COPD exacerbation How is presenting disease/condition affected by chronic disease/condition?: caused by Evaluation data The following diagnostics were reviewed and interpreted by me:: lab results, radiology exam(s) and EKG tracing(s) Lab and/or radiology exams considered but not ordered:: CT chest Interpretation Summary: COPD exacerbation Medications Medications considered but not ordered:: na Medication administrations:: Medication Administration History Acetaminophen (Acetaminophen 325 Mg Tablet) 650 mg PO Q6H PRN PRN Reason: Fever >101.5 Stop: 10/03/24 04:52 Acetaminophen (Acetaminophen 325 Mg Tablet) 650 mg PO Q6H PRN PRN Reason: PAIN SCALE 1-3 (mild Stop: 10/03/24 04:52 Albuterol/Ipratropium (Albuterol/Ipratropium (Duoneb) Rt Katarina 3 Ml Nebu) 3 ml INH Q4HRRT DEBO Stop: 10/03/24 06:59 Heparin Sodium (Porcine) (Heparin Sod Inj 5000 Unit/Ml Vial) 5,000 unit SC Q8HR DEBO Stop: 09/17/24 05:59 Doxycycline Hyclate 100 mg/ (Sodium Chloride) 100 mls @ 100 mls/hr IV BID DEBO Stop: 09/10/24 08:59 Cefepime HCl 2 gm/ Sodium (Chloride) 50 mls @ 100 mls/hr IV Q12HR DEBO Stop: 09/10/24 04:57 Doxycycline Hyclate 100 mg/ (Sodium Chloride) 100 mls @ 100 mls/hr IV X1 ONE Stop: 09/03/24 06:14 Methylprednisolone Sodium Succinate (Methylprednisolone Sod Succ 40 Mg Vial) 40 mg IVP BID DEBO Stop: 09/10/24 08:59 Ondansetron HCl (Ondansetron Inj 2 Mg/Ml Inj 2 Ml) 4 mg IV Q6H PRN; Protocol PRN Reason: NAUSEA OR VOMITING Stop: 10/03/24 04:52 Sennosides (Senna Tablet) 1 tab PO QDAY PRN; Protocol PRN Reason: constipation Stop: 10/03/24 04:52 Tamsulosin HCl (Tamsulosin Hcl 0.4 Mg Capsule) 0.4 mg PO QDAY [facility] Stop: 10/03/24 08:59 Discontinued Medications Albuterol/Ipratropium (Albuterol/Ipratropium (Duoneb) Rt Katarina 3 Ml Nebu) 3 ml INH X1 ONE Stop: 09/03/24 00:13 Last Admin: 09/03/24 00:18 Dose: 3 ml Documented By: WYATT Sodium Chloride (Ns) 1,000 mls @ 999 mls/hr IV .Q1H1M ONE Stop: 09/03/24 01:39 Last Infusion: 09/03/24 01:28 Dose: Infused Documented By: Admin: 09/03/24 00:48 Dose: 999 mls/hr Documented By: BART Piperacillin/Tazobactam/Dextrose (Zosyn) 3.375 gm in 50 mls @ 100 mls/hr IV X1 ONE Stop: 09/03/24 01:08 Last Infusion: 09/03/24 01:11 Dose: Infused Documented By: Admin: 09/03/24 00:48 Dose: 100 mls/hr Documented By: BART Sodium Chloride (Ns) 500 mls @ 999 mls/hr IV .Q31M ONE Stop: 09/03/24 01:33 Last Infusion: 09/03/24 02:12 Dose: Infused Documented By: Admin: 09/03/24 01:41 Dose: 999 mls/hr Documented By: BART Magnesium Sulfate/Dextrose (Magnesium Sulfate Ivpb) 1 gm in 100 mls @ 100 mls/hr IV X1 ONE Stop: 09/03/24 05:18 Last Admin: 09/03/24 04:45 Dose: 100 mls/hr Documented By: BART Cefepime HCl 2 gm/ Sodium (Chloride) 50 mls @ 100 mls/hr IV X1 ONE Stop: 09/03/24 05:44 Lorazepam (Lorazepam 2 Mg/Ml Vial) 1 mg IVP X1 ONE Stop: 09/03/24 01:05 Last Admin: 09/03/24 01:24 Dose: 1 mg Documented By: BART as above Consultations Consultation(s) initiated? 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 Admission Request Was there a request for admission?: Yes Admission Attestation Admission request attestation: Discussed case with [] from Hospitalist service regarding admission. Discussed patients ED course, exam findings, labs, and radiology results. The Hospitalist [agrees,declines] to accept the patient for admission. Disposition Plan Disposition Plan: Admit Medical Decision Making Differential Diagnosis Differential Diagnosis: PNA, COPD exacerbation, URI Lab Data 09/03/24 00:07 09/03/24 00:07 Labs: Lab Results 09/03/24 09/03/24 09/03/24 Range/Units 00:07 00:38 02:56 WBC 19.6 H D (3.8-10.6) Thou/mm3 RBC 4.77 (4.50-5.90) Miln/mm3 Hgb 13.1 L D (13.5-16.0) g/dL Hct 42.0 (41.0-53.0) % MCV 88 (80-100) fL MCH 27.5 (25.0-35.0) pg MCHC 31.2 (31.0-37.0) g/dl RDW Std Deviation 43.2 (35.1-43.9) fL Plt Count 236 D (140-440) Thou/mm3 Neut % (Auto) 80 (37-80) % Lymph % (Auto) 9 L (10-50) % [place] % (Auto) 9 (0-12) % Eos % (Auto) 1 (0-10) % Baso % (Auto) 0 (0-2.5) % Neut # (Auto) 15.6 H (1.8-7.7) Thou/mm3 Lymph # (Auto) 1.8 (1.0-4.8) Thou/mm3 [place] # (Auto) 1.8 H (0.0-0.8) Thou/mm3 Eos # (Auto) 0.2 (0.0-0.5) Thou/mm3 Baso # (Auto) 0.0 (0.0-0.2) Thou/mm3 Immature Gran # (Auto) 0.17 H (0.00-0.00) Thou/mm3 Absolute Nucleated RBC 0.00 (0.00-0.00) Thou/mm3 Immature Gran % 1 H (0-0) % Nucleated RBC % 0 (0) /100 WBC PT 12.4 H (9.0-12.2) Seconds INR 1.1 (0.9-1.3) APTT 28.5 (22.0-36.0) Seconds Puncture Site Right Radial Right Radial ABG pH 7.29 L 7.31 L (7.35-7.45) ABG pCO2 75 H* 66 H (32.0-48.0) mmHg ABG pO2 82 L 67 L (83-108) mmHg ABG HCO3 37 H 33 H (20-26) mEq/L ABG O2 Saturation 96 93 (91-98) % ABG Base Excess 7 H 5 H (-3-3) FiO2 30 30 % Sodium 139 (136-145) mMol/L Potassium 3.8 (3.4-5.1) mMol/L Chloride 98 (98-107) mMol/L Carbon Dioxide 35.4 H (20.0-31.0) mMol/L Anion Gap 6 L (7-16) BUN 17 (9-23) mg/dL Creatinine 0.8 (0.6-1.3) mg/dL Estim Creat Clear Calc 52.5 L (>60) mL/min eGFR > 60 (60 - ) See Note BUN/Creatinine Ratio 21 H (12-20) Ratio Glucose 194 H (74-106) mg/dL Calculated Osmolality 284 (275-295) Lactic Acid 1.5 (0.4-2.0) mMol/L Calcium 9.2 (8.3-10.6) mg/dL Corrected Calcium 9.2 (8.5-10.1) mg/dL Magnesium 1.9 (1.6-2.6) mg/dL Total Bilirubin 0.7 (0.3-1.2) mg/dL AST 16 (0-34) U/L ALT 29 (10-49) U/L Alkaline Phosphatase 82 (46-116) U/L Troponin I < 0.020 (0.0-0.045) ng/mL Total Protein 6.8 (5.7-8.2) gm/dL Albumin 4.1 (3.4-4.8) gm/dL Globulin 2.7 (2.3-3.5) gm/dL Albumin/Globulin Ratio 1.5 (1.2-2.2) Procalcitonin 0.12 (0.0-0.49) ng/ml Discharge Plan Plan Patient Disposition: HOME (Self Care) Patient condition on transfer: Stable Problem List Clinical Impression: COPD exacerbation MD Attestation MD Attestation I, Dr. Vega, have reviewed the history, exam, and assessment of the patient. I have evaluated the patient independently and agree with the plan of care documented by resident Ta Hines. All diagnostic studies were reviewed and discussed. I confirm the diagnosis as documented by the resident. I was present during the Medical Decision Making for this patient. The patient's plan of care was created between myself and the Resident and consistent with our discussion of the patient's case.
[2024-09-03] VITALS (22 sets, daily range): BP systolic 124–177; BP diastolic 59–99; PULSE 79–120; RESP 20–29; TEMP 36.1–37.1; O2SAT 90–99; BMI 19.8
[2024-09-03 00:17] LABS: Lactate (Lactic Acid) 1.5 mMol/L (0.4-2.0)
[2024-09-03] MEDS: ALBUTEROL/IPRATROPIUM (Duoneb) RT SOL 3 ML NEBU INH ×6 (00:18→22:54)
[2024-09-03 00:19] LABS: Basophils % (Auto) 0 % (0-2.5); Eosinophils # (Auto) 0.2 Thou/mm3 (0.0-0.5); Eosinophils % (Auto) 1 % (0-10); Hemoglobin 13.1 g/dL (13.5-16.0); Immature Granulocytes % (Auto) 1 % (0-0); Immature Granulocytes Auto 0.17 Thou/mm3 (0.00-0.00); Lymphocytes # (Auto) 1.8 Thou/mm3 (1.0-4.8); Lymphocytes % (Auto) 9 % (10-50); Mean Corpuscular HGB Conc 31.2 g/dl (31.0-37.0); Mean Corpuscular Hemoglobin 27.5 pg (25.0-35.0); Mean Corpuscular Volume 88 fL (80-100); Monocytes # (Auto) 1.8 Thou/mm3 (0.0-0.8); Monocytes % (Auto) 9 % (0-12); Neutrophils # (Auto) 15.6 Thou/mm3 (1.8-7.7); Neutrophils % (Auto) 80 % (37-80); Nucleated Red Blood Cell % 0 /100 WBC (0); Platelet Count 236 Thou/mm3 (140-440); RDW Standard Deviation 43.2 fL (35.1-43.9); Red Blood Count 4.77 Miln/mm3 (4.50-5.90); White Blood Count 19.6 Thou/mm3 (3.8-10.6)
--- NOTE | 2024-09-03 00:20 | PC.NURSE ---
pt awake and alert brought into er by ambulance from home for complaints of shortness of breath. pt reports started this afternoon. pt recently dc from hospital for pneumonia. per ems pt oxygen level 88% on 2 liters at home. pt given breathing treatment in route and placed on 6 liters oxygen. iv 18g placed by ems. pt placed in room 2 with noted shortness of breath. respiratory at bedside. pt satting 60's. provider morelia made aware. pt placed on bipap by RT.
[2024-09-03 00:42] LABS: Alanine Aminotransferase 29 U/L (10-49); Albumin, Serum 4.1 gm/dL (3.4-4.8); Albumin/Globulin Ratio 1.5 (1.2-2.2); Alkaline Phosphatase 82 U/L (46-116); Anion Gap 6 (7-16); Aspartate Amino Transferase 16 U/L (0-34); BUN/Creatinine Ratio 21 Ratio (12-20); Bilirubin,Total 0.7 mg/dL (0.3-1.2); Blood Urea Nitrogen 17 mg/dL (9-23); Calcium 9.2 mg/dL (8.3-10.6); Calcium (Corrected) 9.2 mg/dL (8.5-10.1); Carbon Dioxide 35.4 mMol/L (20.0-31.0); Chloride 98 mMol/L (98-107); Creatinine (Component) 0.8 mg/dL (0.6-1.3); Estimated Creatinine Clearance 52.5 mL/min (>60); Globulin 2.7 gm/dL (2.3-3.5); Glucose 194 mg/dL (74-106); Magnesium 1.9 mg/dL (1.6-2.6); Osmolality,Calculated 284 (275-295); Potassium 3.8 mMol/L (3.4-5.1); Procalcitonin 0.12 ng/ml (0.0-0.49); Sodium 139 mMol/L (136-145); Total Protein 6.8 gm/dL (5.7-8.2); Troponin I < 0.020 ng/mL (0.0-0.045); eGFR > 60 See Note
[2024-09-03 00:45] LABS: Allen Test Performed/OK; Base Excess 7 (-3-3); HCO3 37 mEq/L (20-26); Inspired Oxygen, FIO2 30 %; O2 Saturation 96 % (91-98); PCO2 75 mmHg (32.0-48.0); PO2 82 mmHg (83-108); Puncture Site Right Radial; pH, Arterial 7.29 (7.35-7.45)
[2024-09-03] MEDS: SODIUM CHLORIDE 0.9% 1000 ML 1,000 ML 999 ML IV (00:48)
[2024-09-03] MEDS: PIPER/TAZO 3.375 GM PREMIX 3.375 GM/50 ML BAG IV (00:48)
[2024-09-03 00:59] LABS: INR 1.1 (0.9-1.3); Partial Thromboplastin Time 28.5 Seconds (22.0-36.0); Prothrombin Time 12.4 Seconds (9.0-12.2)
--- NOTE | 2024-09-03 01:00 | PC.RT ---
per abg results ipap increase to 12/5 pt tolerating well at this time doctor made aware.
--- NOTE | 2024-09-03 01:20 | XR_ITS ---
Examination: CTA chest with intravenous contrast 2-D reconstructions 3-D reconstructions, vascular Date and time of exam: September 03, 2024 0317 hrs. Indications: Chest pain shortness of breath today CTDI: vol (mGy) 9.08 DLP: (mGycm) 408 Technique: Multiple axial sections of the thorax have been obtained. 3 mm slice thickness, from below the hemidiaphragms to above the apices of the lungs. Mediastinal and lung density settings have been obtained. 2-D sagittal and coronal reconstructions. 3-D angiographic renderings, 3-D volume renderings, 3D post processing, vascular maximum intensity projections obtained. Contrast administered is 100 cc Isovue-370. Low dose protocols were performed. One or more of the following dose reduction techniques were used; automated exposure control, adjustment of the mA and/or KV according to patient size, use of iterative reconstruction technique. Findings: No thoracic aortic dissection No pulmonary artery filling defects Mild right hilar lymphadenopathy COPD Pneumonia in the right middle lobe and both bases No visualized liver or splenic lesion 10 mm fat-containing left adrenal nodule Impression: Negative for pulmonary artery emboli Mild right hilar lymphadenopathy, recommend PA lateral chest 6 month follow-up COPD Pneumonia in the right middle lobe and both bases
[2024-09-03] MEDS: LORazepam 2 MG/ML VIAL 1 MG IVP (01:24)
[2024-09-03] MEDS: SODIUM CHLORIDE 0.9% 500 ML 500 ML 999 ML IV (01:41)
[2024-09-03 03:01] LABS: Base Excess 5 (-3-3); HCO3 33 mEq/L (20-26); Inspired Oxygen, FIO2 30 %; O2 Saturation 93 % (91-98); PCO2 66 mmHg (32.0-48.0); PO2 67 mmHg (83-108); pH, Arterial 7.31 (7.35-7.45)
[2024-09-03 03:03] LABS: Allen Test Performed/OK; Puncture Site Right Radial
--- NOTE | 2024-09-03 03:31 | PC.RT ---
ipap increased to 14/, per abg results, DR. Chappell aware and okay with changes.
--- NOTE | 2024-09-03 03:40 | PC.RT ---
pt was taken to CT on bipap without complications.
--- NOTE | 2024-09-03 04:30 | PRELIM_ITS ---
CT angiogram of the chest with intravenous contrast (axial sections with sagittal and coronal reformats) September 03, 2024 at 0317 hours Clinical History: SOB. Technique:Helical axial sections with sagittal and coronal reformats of the chest were obtained with intravenous contrast. Iterative reconstruction technique was employed to reduce patient radiation exposure. 3D/MIP reconstructed images were also provided. Findings: There is no filling defect within the pulmonary artery divisions to suggest pulmonary thromboembolism. The mediastinum demonstrates no evidence of mass or lymphadenopathy. The thoracic aorta demonstrates atheromatous calcification without evidence of aneurysm. Coronary artery calcification is noted. There is no pericardial effusion. Prominent right hilar lymph nodes are seen. Emphysematous changes are noted in the lungs. Bibasilar streaky atelectasis is present. Linear subpleural opacity is seen in the left lower lobe, likely atelectasis/ scarring. There are multiple confluent tree in bud opacities in the right middle lobe and right lower lobe.No evidence of pleural effusion or pneumothorax. The bones are osteopenic. Degenerative changes are identified in the spine. There is a 9 mm hypodense nodule in the left adrenal gland. Small hypodense lesion is noted in the left liver lobe, too small to characterize. Small calculi are noted within the gallbladder, without evidence of gallbladder wall thickening or pericholecystic fluid. Impression: 1. No CT evidence of pulmonary thromboembolism. 2. Findings suspicious for right middle lobe and right lower lobe pneumonia. Recommend clinical correlation. Report Electronically Signed By: Chayo Ambrosio 09/03/2024 4:30:16 AM [EST]
[2024-09-03] MEDS: Magnesium Sulfate 1 gm Ivpb 1 GM/100 ML BAG IV (04:45)
--- NOTE | 2024-09-03 05:03 | ESHP_ITS ---
<Statement entered by Christy Moreno MD - 09/05/24 04:34> I reviewed above note and agree with findings and plans. I have also personally examined the patient with medicine team and went over assessment and plan with medical team including video editing internship and resident physician. Documentation for date of: 09/03/24 HPI History of Present Illness Chief complaint: Shortness of breath for 2 days History of present illness: HPI:An 84-year-old male patient reportedly with past medical history of COPD on 2 L of oxygen at home, BPH, hypertension, on a regular treatment presented to the ED due to worsening shortness of breath for the past 2 days. Patient was recently admitted to the hospital on 29 August 2023 due to COPD exacerbation and pneumonia. Patient received ceftriaxone, azithromycin, breathing treatments and methylprednisolone. Patient condition improved during that admission and was discharged on 30 August 2024 on home oxygen nifedipine, fluticasone, albuterol sulfate, Augmentin, azithromycin, ipratropium. On the day of discharge patient was doing well at baseline of oxygen requirement of 2 L. However the next day patient condition started to worsen in which his oxygen requirement increased and became short of breath. Family members informed the ED doctor that he became more anxious and unable to catch his breath. Unable to ask for further details or review of other system as most of the patient history was taken from patient's chart at the patient was on BiPAP and was given Ativan because of his anxiety. At the ED patient was found to have blood pressure of 177/99, pulse rate of 118, respiratory rate of 24, normal body temperature, his WBCs was increased since 30 August from 4.1-19.6 most likely secondary to steroids, his hemoglobin is 13.1, and platelets within normal limits. His ABG showed pH of 7.31, CO2 of 66, pO2 of 67, HCO3 of 33, and O2 saturation of 93%. His CMP was only significant for blood glucose of 194, Pro-Collin, troponin are within normal limits. During his last admission he was tested negative for cocci, Legionella and his blood cultures were negative. CT angio was done to rule out pulmonary embolism however CT report still pending, and review of initial images there was no obvious signs of consolidation and there was extensive emphysematous changes bilaterally. After the patient was put on BiPAP and was given Ativan his saturation has improved. PMH: As above Social hx: Alcohol: Unable to assess due to patient medical condition Tobacco: Unable to assess due to patient medical condition Illicit drugs: Unable to assess due to patient medical condition Allergies: No known allergies Review of Systems Review of Systems ROS Unobtainable: unobtainable due to medical condition Exam Vital Signs Temp Pulse Resp BP Pulse Ox O2 Del Method FiO2 96.9 F 110 H 26 H 124/92 H 94 L BiPAP 30 09/03/24 02:48 09/03/24 02:48 09/03/24 02:48 09/03/24 02:48 09/03/24 02:48 09/03/24 02:48 09/03/24 02:48 Narrative Exam GEN: somnolant, on bipap HEENT: NC/AC, neck supple CVS: RRR, muffled S1-S2 present, no murmurs appreciated RESP: decrease air-entry bilaterally GI: soft,non distended, non tender, NBS MSK: no lower extremity edema SKIN: warm and 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 Results: Labs 09/03/24 00:07 09/03/24 00:07 Labs: Short CBC 09/03/24 Range/Units 00:07 WBC 19.6 H D (3.8-10.6) Thou/mm3 Hgb 13.1 L D (13.5-16.0) g/dL Hct 42.0 (41.0-53.0) % Plt Count 236 D (140-440) Thou/mm3 BMP 09/03/24 00:07 Sodium 139 Potassium 3.8 Chloride 98 Carbon Dioxide 35.4 H BUN 17 Creatinine 0.8 Glucose 194 H Calcium 9.2 Cardiac Enzymes 09/03/24 Range/Units 00:07 Troponin I < 0.020 (0.0-0.045) ng/mL Liver Function 09/03/24 Range/Units 00:07 Total Bilirubin 0.7 (0.3-1.2) mg/dL AST 16 (0-34) U/L ALT 29 (10-49) U/L Alkaline Phosphatase 82 (46-116) U/L Albumin 4.1 (3.4-4.8) gm/dL ABG Interpretation ABG results: 09/03/24 09/03/24 00:38 02:56 ABG pH 7.29 L 7.31 L ABG pCO2 75 H* 66 H ABG pO2 82 L 67 L ABG HCO3 37 H 33 H ABG O2 Saturation 96 93 ABG Base Excess 7 H 5 H Quality Measures Quality Measures none Advance care planning discussed with:: child Medications Home Medications and Allergies Home Medications ?Medication ?Instructions ?Recorded ?Confirmed ?Type amoxicillin 500 mg-potassium 1 tab PO Q12H 09/03/24 History clavulanate 125 mg tablet azithromycin 500 mg tablet 500 mg PO QDAY 09/03/2406/18 History Allergies Allergy/AdvReac Type Severity Reaction Status Date / Time No Known Allergies Allergy Verified 05/19/24 09:52 Visit Medications Acetaminophen (Acetaminophen 325 Mg Tablet) 650 mg PO Q6H PRN PRN Reason: Fever >101.5 Stop: 10/03/24 04:52 Acetaminophen (Acetaminophen 325 Mg Tablet) 650 mg PO Q6H PRN PRN Reason: PAIN SCALE 1-3 (mild Stop: 10/03/24 04:52 Albuterol/Ipratropium (Albuterol/Ipratropium (Duoneb) Rt Katarina 3 Ml Nebu) 3 ml INH Q4HRRT DEBO Stop: 10/03/24 06:59 Heparin Sodium (Porcine) (Heparin Sod Inj 5000 Unit/Ml Vial) 5,000 unit SC Q8HR DEBO Stop: 09/17/24 05:59 Magnesium Sulfate/Dextrose (Magnesium Sulfate Ivpb) 1 gm in 100 mls @ 100 mls/hr IV X1 ONE Stop: 09/03/24 05:18 Last Admin: 09/03/24 04:45 Dose: 100 mls/hr Doxycycline Hyclate 100 mg/ (Sodium Chloride) 100 mls @ 100 mls/hr IV BID DEBO Stop: 09/10/24 08:59 Cefepime HCl 2 gm/ Sodium (Chloride) 50 mls @ 100 mls/hr IV Q12HR DEBO Stop: 09/10/24 04:57 Methylprednisolone Sodium Succinate (Methylprednisolone Sod Succ 40 Mg Vial) 40 mg IVP BID DEBO Stop: 09/10/24 08:59 Ondansetron HCl (Ondansetron Inj 2 Mg/Ml Inj 2 Ml) 4 mg IV Q6H PRN; Protocol PRN Reason: NAUSEA OR VOMITING Stop: 10/03/24 04:52 Sennosides (Senna Tablet) 1 tab PO QDAY PRN; Protocol PRN Reason: constipation Stop: 10/03/24 04:52 Discontinued Medications Albuterol/Ipratropium (Albuterol/Ipratropium (Duoneb) Rt Katarina 3 Ml Nebu) 3 ml INH X1 ONE Stop: 09/03/24 00:13 Last Admin: 09/03/24 00:18 Dose: 3 ml Sodium Chloride (Ns) 1,000 mls @ 999 mls/hr IV .Q1H1M ONE Stop: 09/03/24 01:39 Last Infusion: 09/03/24 01:28 Dose: Infused Piperacillin/Tazobactam/Dextrose (Zosyn) 3.375 gm in 50 mls @ 100 mls/hr IV X1 ONE Stop: 09/03/24 01:08 Last Infusion: 09/03/24 01:11 Dose: Infused Sodium Chloride (Ns) 500 mls @ 999 mls/hr IV .Q31M ONE Stop: 09/03/24 01:33 Last Infusion: 09/03/24 02:12 Dose: Infused Lorazepam (Lorazepam 2 Mg/Ml Vial) 1 mg IVP X1 ONE Stop: 09/03/24 01:05 Last Admin: 09/03/24 01:24 Dose: 1 mg Assessment & Plan Plan summary: An 84-year-old male patient reportedly with past medical history of COPD on 2 L of oxygen at home, BPH, hypertension, on a regular treatment presented to the ED due to worsening shortness of breath for the past 2 days. Patient was admitted for tx of COPD exacerbation and possible pna. Assessment and plan: #Acute on chronic hypercapnic hypoxic respiratory failure most likely multifactorial secondary to COPD exacerbation and pneumonia #COPD exacerbation #Community versus hospital-acquired pneumonia #Pulmonary embolism rule out Patient was recently admitted to the hospital on 29 August 2023 due to COPD exacerbation and pneumonia. Patient received ceftriaxone, azithromycin, breathing treatments and methylprednisolone. Presented today with worsening shortness of breath over the past 2 days, he was discharged on Augmentin, azithromycin, methylprednisone pack. Found to have tachycardia of 118, respiratory rate of 24 19.6 most likely secondary to steroids, his hemoglobin is 13.1, and platelets within normal limits. His ABG showed pH of 7.31, CO2 of 66, pO2 of 67, HCO3 of 33, and O2 saturation of 93% During his last admission he was tested negative for cocci, Legionella and his blood cultures were negative. CT angio was done to rule out pulmonary embolism however CT report still pending, and review of initial images there was no obvious signs of consolidation and there was extensive emphysematous changes bilaterally. Plan ? Admit patient to medicine ? Continuous pulse oximetry ? Maintain O2 saturation between 88 and 92% on BiPAP ? Repeat ABG at 6 AM follow-up on the results ? Start the patient on DuoNebs scheduled every 4 hours ? Start the patient on steroids Solu-Medrol 40 mg IV twice daily ? Start the patient on doxycycline 100 mg twice daily IV, ? Start the patient on cefepime 2 g IV every 12 hours ? Sent for MRSA screening ? Send for blood cultures and urine cultures ? Send for BNP ? Follow-up on the chest CT angio results to rule out pulmonary embolism #History of hypertension Patient was prescribed nifedipine open discharge however and med reconciliation it was reported that the patient was not using his home medication. On presentation his blood pressure was 177/99 however after he was given Ativan and was started on BiPAP his blood pressure decreased to 124/92 Plan ? Monitor blood pressure and resume blood pressure medication nifedipine 60 mg when appropriate #Questionable history of BPH Previous ultrasound showed prostatomegaly moderate. Plan ? Consider starting the patient on Flomax when appropriate, - Bladder scan and straight Javier if urinary retention was noted or urine volume of more than 400 mL Hospital Maintenance: FEN: Keep n.p.o. as the patient on BiPAP DVT ppx: Heparin subcu GI ppx: Not indicated IV lines: PIV Javier: None Code status: Full code by default Dispo: Med/tele - Patient's plan and care discussed with my attending, Dr. Josh Hou MD Internal Medicine PGY-2
[2024-09-03] MEDS: HEPARIN SOD INJ 5000 UNIT/ML VIAL SC ×3 (05:47→21:58)
[2024-09-03] MEDS: CEFEPIME INJ 2 GM in SODIUM CHLORIDE 0.9% (Popper) 50 ML IV ×2 (05:47→21:57)
[2024-09-03 06:04] LABS: Basophils % (Auto) 0 % (0-2.5); Eosinophils % (Auto) 0 % (0-10); Hematocrit 36.4 % (41.0-53.0); Hemoglobin 11.2 g/dL (13.5-16.0); Immature Granulocytes % (Auto) 1 % (0-0); Immature Granulocytes Auto 0.09 Thou/mm3 (0.00-0.00); Lymphocytes # (Auto) 0.6 Thou/mm3 (1.0-4.8); Lymphocytes % (Auto) 5 % (10-50); Mean Corpuscular HGB Conc 30.8 g/dl (31.0-37.0); Mean Corpuscular Hemoglobin 27.5 pg (25.0-35.0); Mean Corpuscular Volume 89 fL (80-100); Monocytes % (Auto) 8 % (0-12); Neutrophils # (Auto) 11.1 Thou/mm3 (1.8-7.7); Neutrophils % (Auto) 86 % (37-80); Nucleated Red Blood Cell % 0 /100 WBC (0); Platelet Count 200 Thou/mm3 (140-440); RDW Standard Deviation 43.8 fL (35.1-43.9); Red Blood Count 4.07 Miln/mm3 (4.50-5.90); White Blood Count 12.9 Thou/mm3 (3.8-10.6)
[2024-09-03] MEDS: DOXYCYCLINE INJ 100 MG in SODIUM CHLORIDE 0.9% (POP) 100 ML IV ×2 (06:10→20:30)
[2024-09-03 06:30] LABS: Glucose Estimated Average 120 mg/dL (80-131); Hemoglobin A1C 5.8 % Hgb (4.8-6.0)
--- NOTE | 2024-09-03 06:45 | PC.NURSE ---
Pt came in from ED, alert and oriented, pt is on BiPAP at 10L, FIO2 30%, sating on 97%. Report given to Daria. Needs to do all the admission for the pts.
[2024-09-03 06:46] LABS: Alanine Aminotransferase 24 U/L (10-49); Albumin, Serum 3.4 gm/dL (3.4-4.8); Albumin/Globulin Ratio 1.5 (1.2-2.2); Alkaline Phosphatase 64 U/L (46-116); Anion Gap 2 (7-16); Aspartate Amino Transferase 16 U/L (0-34); BUN/Creatinine Ratio 21 Ratio (12-20); Bilirubin,Total 0.5 mg/dL (0.3-1.2); Blood Urea Nitrogen 19 mg/dL (9-23); Calcium 8.6 mg/dL (8.3-10.6); Calcium (Corrected) 9.1 mg/dL (8.5-10.1); Chloride 104 mMol/L (98-107); Creatinine (Component) 0.9 mg/dL (0.6-1.3); Estimated Creatinine Clearance 46.6 mL/min (>60); Globulin 2.3 gm/dL (2.3-3.5); Glucose 152 mg/dL (74-106); Magnesium 2.4 mg/dL (1.6-2.6); Osmolality,Calculated 284 (275-295); Potassium 4.8 mMol/L (3.4-5.1); Sodium 140 mMol/L (136-145); Thyroid Stimulating Hormone 1.11 uIU/mL (0.55-4.78); Total Protein 5.7 gm/dL (5.7-8.2); eGFR > 60 See Note
[2024-09-03 06:59] LABS: Collection Type, Urine Clean Catch
[2024-09-03 07:11] LABS: Amphetamine/Methamp Scrn,U Negative (Negative); Barbiturate Screen,Urine Negative (Negative); Benzodiazepines Screen,Urine Negative (Negative); Benzoylecgonine Screen, Ur Negative (Negative); Fentanyl Screen,Urine Negative (Negative); Opiate Screen,Urine Negative (Negative); THC Screen,Urine Negative (Negative)
[2024-09-03 07:35] LABS: RBC,Urine 6 /hpf (0-3); Squamous Epithelial Cell,Urine < 1 /hpf (0-5); WBC,Urine 1 /hpf (0-5)
[2024-09-03 07:36] LABS: B-Type Natriuretic Peptide 103 pg/mL (0-100)
[2024-09-03 07:37] LABS: Bilirubin,Urine Negative (Negative); Blood,Urine Negative (Negative); Clarity,Urine Clear (Clear/Hazy); Color,Urine Yellow (Lt Yel-Yel); Glucose, Urine Negative (Negative); Ketones,Urine Trace (Negative); Leukocyte Esterase,Urine Negative (Negative); Nitrite,Urine Negative (Negative); Protein,Urine 1+ (Neg - Trace); Urobilinogen,Urine 0.2 mg/dL (0.0-1.0)
[2024-09-03 08:14] LABS: Base Excess 7 (-3-3); HCO3 34 mEq/L (20-26); Inspired Oxygen, FIO2 30 %; O2 Saturation 98 % (91-98); PCO2 61 mmHg (32.0-48.0); PO2 88 mmHg (83-108); pH, Arterial 7.35 (7.35-7.45)
[2024-09-03 08:15] LABS: Allen Test Not Performed; Puncture Site Right Brachial
--- NOTE | 2024-09-03 11:53 | PC.SS ---
Initial assessment: this is 84 year old male admitted for SOB. Patient asleep and family, patient's niece Malka Rincon at bed side to assist with providing information. Patient resides at home with daughterLakia. Patient's emergency contact is his daughter Lakia. Patient requires assistance with completion of ADL's. Patient has home oxygen on 3L baseline. Patient follows at the [facility] for primary care. Patient discharge plan is to return home. Family able to transport the patient home. Family is requesting a wheelchair and hospital bed for the patient. No preferred DME vendor. D/c plan: home Next of kin: daughterLakia
--- NOTE | 2024-09-03 12:08 | ESPR_ITS ---
<Statement entered by Aliza Cheng MD - 09/03/24 15:37> I discussed with and supervised the education intern physician who took care of this patient. I personally saw and examined the patient and discussed the assessment and plan with the entire medicine team, including my attending , I agree with most of the assessment and plan as documented below Aliza Cheng M.D. PGY-2 Documentation for date of: 09/03/24 Subjective Subjective Interval history: Patient seen today at the bedside found awake, alert, orientedx3. No overnight events reported. Vital signs stable at this time. Labs signficant for leukocytosis likely secondary to steroid use. Blood cultures from 08/28/2024, today reported gram negative rods. At this time will continue with IV antibiotic therapy, steroid and breathing treatments. Exam Vital Signs Temp Pulse Resp BP Pulse Ox O2 Del Method O2 Flow Rate 97.6 F 82 22 H 155/83 H 99 BiPAP 20 09/03/24 08:00 09/03/24 11:25 09/03/24 10:34 09/03/24 08:00 09/03/24 10:34 09/03/24 08:00 09/03/24 08:00 FiO2 30 09/03/24 10:34 Narrative Exam Physical Exam GENERAL: NAD, AAOx3, on Bipap HEENT: Moist mucosa. Eyes open, symmetrical, & clear CARDIO: Heart RRR, no obvious murmurs PULM: No noted coughing/dyspnea CTA B/L, no R/W/R GI: Abdomen soft, nondistended, no pain on palpation. BSx4 SKIN/MSK/EXT: No wounds/rashes/edema/amputations, no pain on palpation. Pedal pulses present B/L NEURO: AAOx3, no focal neuro deficits, able to move all 4 extremities Objective Labs 09/03/24 05:40 09/03/24 05:40 Labs: Laboratory Results - last 24 hr 09/03/24 09/03/24 09/03/24 00:07 00:38 02:56 WBC 19.6 H D RBC 4.77 Hgb 13.1 L D Hct 42.0 MCV 88 MCH 27.5 MCHC 31.2 RDW Std Deviation 43.2 Plt Count 236 D Neut % (Auto) 80 Lymph % (Auto) 9 L Borden % (Auto) 9 Eos % (Auto) 1 Baso % (Auto) 0 Neut # (Auto) 15.6 H Lymph # (Auto) 1.8 Borden # (Auto) 1.8 H Eos # (Auto) 0.2 Baso # (Auto) 0.0 Immature Gran # (Auto) 0.17 H Absolute Nucleated RBC 0.00 Immature Gran % 1 H Nucleated RBC % 0 PT 12.4 H INR 1.1 APTT 28.5 Puncture Site Right Radial Right Radial ABG pH 7.29 L 7.31 L ABG pCO2 75 H* 66 H ABG pO2 82 L 67 L ABG HCO3 37 H 33 H ABG O2 Saturation 96 93 ABG Base Excess 7 H 5 H FiO2 30 30 Sodium 139 Potassium 3.8 Chloride 98 Carbon Dioxide 35.4 H Anion Gap 6 L BUN 17 Creatinine 0.8 Estim Creat Clear Calc 52.5 L eGFR > 60 BUN/Creatinine Ratio 21 H Glucose [address] Glu mg/dL Hemoglobin A1c Calculated Osmolality 284 Lactic Acid 1.5 Calcium 9.2 Corrected Calcium 9.2 Magnesium 1.9 Total Bilirubin 0.7 AST 16 ALT 29 Alkaline Phosphatase 82 Troponin I < 0.020 B-Natriuretic Peptide Total Protein 6.8 Albumin 4.1 Globulin 2.7 Albumin/Globulin Ratio 1.5 Procalcitonin 0.12 TSH Ur Collection Type Urine Color Urine Clarity Urine pH Ur Specific [place] Urine Protein Urine Glucose (UA) Urine Ketones Urine Blood Urine Nitrite Urine Bilirubin Urine Urobilinogen (Auto) Ur Leukocyte Esterase Urine RBC Urine WBC Ur Squamous Epith Cells Urine Bacteria Urine Opiates Screen Urine Fentanyl Screen Ur Barbiturates Screen U Amphetamin/Meth Scrn U Benzodiazepines Scrn U Cocaine Metab Screen U Marijuana (THC) Screen 09/03/24 09/03/24 09/03/24 05:40 06:31 06:34 WBC 12.9 H D RBC 4.07 L Hgb 11.2 L Hct 36.4 L MCV 89 MCH 27.5 MCHC 30.8 L RDW Std Deviation 43.8 Plt Count 200 D Neut % (Auto) 86 H Lymph % (Auto) 5 L Borden % (Auto) 8 Eos % (Auto) 0 Baso % (Auto) 0 Neut # (Auto) 11.1 H Lymph # (Auto) 0.6 L [place] # (Auto) 1.0 H Eos # (Auto) 0.0 Baso # (Auto) 0.0 Immature Gran # (Auto) 0.09 H Absolute Nucleated RBC 0.00 Immature Gran % 1 H Nucleated RBC % 0 PT INR APTT Puncture Site ABG pH ABG pCO2 ABG pO2 ABG HCO3 ABG O2 Saturation ABG Base Excess FiO2 Sodium 140 Potassium 4.8 D Chloride 104 Carbon Dioxide 34.0 H Anion Gap 2 L BUN 19 Creatinine 0.9 Estim Creat Clear Calc 46.6 L eGFR > 60 BUN/Creatinine Ratio 21 H Glucose [address] Glu mg/dL 120 Hemoglobin A1c 5.8 Calculated Osmolality 284 Lactic Acid Calcium 8.6 Corrected Calcium 9.1 Magnesium 2.4 Total Bilirubin 0.5 AST 16 ALT 24 Alkaline Phosphatase 64 D Troponin I B-Natriuretic Peptide 103 H Total Protein 5.7 Albumin 3.4 D Globulin 2.3 Albumin/Globulin Ratio 1.5 Procalcitonin TSH 1.11 Ur Collection Type Clean Catch Urine Color Yellow Urine Clarity Clear Urine pH 6.0 Ur Specific [place] 1.020 Urine Protein 1+ A Urine Glucose (UA) Negative Urine Ketones Trace Urine Blood Negative Urine Nitrite Negative Urine Bilirubin Negative Urine Urobilinogen (Auto) 0.2 Ur Leukocyte Esterase Negative Urine RBC 6 H Urine WBC 1 Ur Squamous Epith Cells < 1 Urine Bacteria None Urine Opiates Screen Negative Urine Fentanyl Screen Negative Ur Barbiturates Screen Negative U Amphetamin/Meth Scrn Negative U Benzodiazepines Scrn Negative U Cocaine Metab Screen Negative U Marijuana (THC) Screen Negative 09/03/24 08:05 WBC RBC Hgb Hct MCV MCH MCHC RDW Std Deviation Plt Count Neut % (Auto) Lymph % (Auto) [place] % (Auto) Eos % (Auto) Baso % (Auto) Neut # (Auto) Lymph # (Auto) B[place] # (Auto) Eos # (Auto) Baso # (Auto) Immature Gran # (Auto) Absolute Nucleated RBC Immature Gran % Nucleated RBC % PT INR APTT Puncture Site Right Brachial ABG pH 7.35 ABG pCO2 61 H ABG pO2 88 D ABG HCO3 34 H ABG O2 Saturation 98 ABG Base Excess 7 H FiO2 30 Sodium Potassium Chloride Carbon Dioxide Anion Gap BUN Creatinine Estim Creat Clear Calc eGFR BUN/Creatinine Ratio Glucose Estimated Ave Glu mg/dL Hemoglobin A1c Calculated Osmolality Lactic Acid Calcium Corrected Calcium Magnesium Total Bilirubin AST ALT Alkaline Phosphatase Troponin I B-Natriuretic Peptide Total Protein Albumin Globulin Albumin/Globulin Ratio Procalcitonin TSH Ur Collection Type Urine Color Urine Clarity Urine pH Ur Specific [place] Urine Protein Urine Glucose (UA) Urine Ketones Urine Blood Urine Nitrite Urine Bilirubin Urine Urobilinogen (Auto) Ur Leukocyte Esterase Urine RBC Urine WBC Ur Squamous Epith Cells Urine Bacteria Urine Opiates Screen Urine Fentanyl Screen Ur Barbiturates Screen U Amphetamin/Meth Scrn U Benzodiazepines Scrn U Cocaine Metab Screen U Marijuana (THC) Screen ABG Interpretation ABG results: 09/03/24 09/03/24 09/03/24 00:38 02:56 08:05 ABG pH 7.29 L 7.31 L 7.35 ABG pCO2 75 H* 66 H 61 H ABG pO2 82 L 67 L 88 D ABG HCO3 37 H 33 H 34 H ABG O2 Saturation 96 93 98 ABG Base Excess 7 H 5 H 7 H Quality Measures Quality Measures none Advance care planning discussed with:: patient Assessment & Plan Assessment Current Active Medications: Generic Name Dose Route Start Last Admin Trade Name Freq PRN Reason Stop Dose Admin Acetaminophen 650 mg 09/03/24 04:53 Acetaminophen 325 Mg Tablet PO 10/03/24 04:52 Q6H PRN Fever >101.5 Acetaminophen 650 mg 09/03/24 04:53 Acetaminophen 325 Mg Tablet PO 10/03/24 04:52 Q6H PRN PAIN SCALE 1-3 (mild Albuterol/Ipratropium 3 ml 09/03/24 07:00 09/03/24 10:31 Albuterol/Ipratropium (Duoneb) Rt Katarina 3 Ml Nebu INH 10/03/24 06:59 3 ml Q4HRRT DEBO Administration Heparin Sodium (Porcine) 5,000 unit 09/03/24 06:00 09/03/24 05:47 Heparin Sod Inj 5000 Unit/Ml Vial SC 09/17/24 05:59 5,000 unit Q8HR DEBO Administration Doxycycline Hyclate 100 mg/ 100 mls @ 100 mls/hr 09/03/24 21:00 Sodium Chloride IV 09/10/24 20:59 BID DEBO Cefepime HCl 2 gm/ Sodium 50 mls @ 100 mls/hr 09/03/24 21:00 Chloride IV 09/10/24 20:59 Q12HR DEBO Methylprednisolone Sodium Succinate 40 mg 09/03/24 09:00 09/03/24 09:26 Methylprednisolone Sod Succ 40 Mg Vial IVP 09/10/24 08:59 40 mg BID DEBO Administration Ondansetron HCl 4 mg 09/03/24 04:53 Ondansetron Inj 2 Mg/Ml Inj 2 Ml IV 10/03/24 04:52 Q6H PRN NAUSEA OR VOMITING Protocol Sennosides 1 tab 09/03/24 04:53 Senna Tablet PO 10/03/24 04:52 QDAY PRN constipation Protocol Tamsulosin HCl 0.4 mg 09/03/24 09:00 Tamsulosin Hcl 0.4 Mg Capsule PO 10/03/24 08:59 QDAY DEBO Plan 84-year-old male patient reportedly with past medical history of COPD on 2 L of oxygen at home, BPH, hypertension, on a regular treatment presented to the ED due to worsening shortness of breath for the past 2 days. Patient was admitted for tx of COPD exacerbation and possible pneumonia. #Acute on chronic hypercapnic hypoxic respiratory failure most likely multifactorial secondary to COPD exacerbation and pneumonia #COPD exacerbation #Community vs hospital-acquired pneumonia #Pulmonary embolism-ruled out #GNR bacteremia Patient was recently admitted to the hospital on 29 August 2023 due to COPD exacerbation and pneumonia. Patient received ceftriaxone, azithromycin, breathing treatments and methylprednisolone. Presented today with worsening shortness of breath over the past 2 days, he was discharged on Augmentin, azithromycin, methylprednisone pack. Found to have tachycardia of 118, respiratory rate of 24 19.6 most likely secondary to steroids, his hemoglobin is 13.1, and platelets within normal limits. His ABG showed pH of 7.31, CO2 of 66, pO2 of 67, HCO3 of 33, and O2 saturation of 93% During his last admission he was tested negative for cocci, Legionella and his blood cultures were negative. CT angio was done to rule out pulmonary embolism however CT report still pending, and review of initial images there was no obvious signs of consolidation and there was extensive emphysematous changes bilaterally. CTA showed no evidence of pulmonary embolism ABGs improved compared to admission ABGs Blood cultures from 08/28/2024 grew GNR and reported on 09/03/2024 ? on DuoNebs scheduled every 4 hours ? Solu-Medrol 40 mg IV twice daily ? on doxycycline 100 mg twice daily IV, ? on cefepime 2 g IV every 12 hours ? Maintain O2 saturation between 88 and 92% on BiPAP ? f/u MRSA screening ? F/u blood cultures and urine cultures #History of hypertension Patient was prescribed nifedipine open discharge however and med reconciliation it was reported that the patient was not using his home medication. On presentation his blood pressure was 177/99 however after he was given Ativan and was started on BiPAP his blood pressure decreased to 124/92 ? Monitor blood pressure and resume blood pressure medication nifedipine 60 mg when appropriate # history of BPH Previous ultrasound showed prostatomegaly moderate. ? on flomax - Bladder scan and straight Javier if urinary retention was noted or urine volume of more than 400 mL Case discussed with my senior Dr. Cheng PGY-[address] Desmond Mcdonnell MD PGY-1 Disposition: Medtele Fluids: None Feeding: regular Thrombo prophylaxis: heparin Gastric Ulcer prophylaxis: not indicated CODE STATUS: Full code Attending Provider Attestation/Addendum I attest that I was physically present for the evaluation, physical examination, lab and imaging review of the patient with the residents. I discussed the case with the residents and agree with the findings and plans of care as documented above. Patient is an 84 years old male with past medical history of COPD on 2 L home oxygen, BPH, hypertension who presented to the ED with complaint of shortness of breath. Patient was recently discharged from [facility] after management of pneumonia leading to COPD exacerbation. But since last couple days, he started having worsening shortness of breath and decided to visit the ED. He was then admitted for acute on chronic hypoxic respiratory failure secondary to COPD exacerbation likely from hospital-acquired pneumonia. Patient continues to be on BiPAP, saturating well. He was noted to have elevated CO2 level on examination, which have improved with BiPAP this morning. Continues to be on IV cefepime and doxycycline. Awaiting culture results. We will continue to monitor closely and wean down his oxygen as tolerated. Amie Logan MD
--- NOTE | 2024-09-03 13:27 | PC.SS ---
Addendum entered by LORI Sahu 09/05/24 08:52: OXYGEN Pt is discharged in a chronic stable state and has been treated optimally and has other respiratory needs. Oxygen has been ordered due to COPD. Original Note: WheelChairs Patients diagnosis creates mobility limitations that significantly impairs ability to participate in the patient?s activities of daily living either in their entirety, or in a reasonable time frame in the home and the patient?s mobility limitations can not be sufficiently resolved with an appropriately fitted cane or walker. Also the use of a manual wheelchair will sufficiently improve patient?s ability to participate in the activities of daily living in the home and the patient is willing to use the wheelchair that is provided in the home. The patient has some one in the home that is available, willing and able to provide assistance with the wheelchair. Hospital Bed Patient?s diagnosis requires positioning of the head or upper body to be elevated more than 30 degrees. Also the diagnosis requires positioning in order to alleviate pain and if the patient requires frequent changes in the body positioning and/or has an immediate need for change in the body position. Pillows and wedges have been considered and ruled out.
[2024-09-03] MEDS: TAMSULOSIN HCL 0.4 MG CAPSULE PO (14:38)
--- NOTE | 2024-09-03 14:44 | PC.SS ---
Addendum entered by LORI Sahu 09/03/24 14:46: Rounding note: pending cultures and IV abx. Original Note: SS update: Dr. Logan informed they will order PT eval for the patient to determine if there are any DME needs before sending DME order.
--- NOTE | 2024-09-03 20:39 | PC.NURSE ---
Contacted pharmacy and spoke with Bk. Notified pharmacy regarding patient's cefepime. When nurse went to pull out the medication out of the pixys the pixys would have the nurse take out 2 vials of 1gm cefepime when the order is 2g. Nurse checked if one vial of 2gm is available in the unit. 2gm vials are available in the unit and made pharmacy aware. Pharmacy fixed error but had to inform pharmacy that the pixys was not showing the 2100 dose that is scheduled to be given. Per pharmacy, to pull out bed as normal in order to obtain the 2gm vial of cefepime.
[2024-09-04] VITALS (17 sets, daily range): BP systolic 121–170; BP diastolic 65–83; PULSE 81–111; RESP 15–26; TEMP 36.1–37.1; O2SAT 93–100
[2024-09-04] MEDS: ALBUTEROL/IPRATROPIUM (Duoneb) RT SOL 3 ML NEBU INH ×6 (02:55→22:19)
[2024-09-04] MEDS: HEPARIN SOD INJ 5000 UNIT/ML VIAL SC ×3 (05:09→21:47)
[2024-09-04 05:56] LABS: Basophils % (Auto) 0 % (0-2.5); Eosinophils % (Auto) 0 % (0-10); Hematocrit 33.3 % (41.0-53.0); Hemoglobin 10.4 g/dL (13.5-16.0); Immature Granulocytes % (Auto) 0 % (0-0); Immature Granulocytes Auto 0.03 Thou/mm3 (0.00-0.00); Lymphocytes # (Auto) 0.3 Thou/mm3 (1.0-4.8); Lymphocytes % (Auto) 4 % (10-50); Mean Corpuscular HGB Conc 31.2 g/dl (31.0-37.0); Mean Corpuscular Hemoglobin 26.9 pg (25.0-35.0); Mean Corpuscular Volume 86 fL (80-100); Monocytes # (Auto) 0.2 Thou/mm3 (0.0-0.8); Monocytes % (Auto) 2 % (0-12); Neutrophils # (Auto) 7.3 Thou/mm3 (1.8-7.7); Neutrophils % (Auto) 93 % (37-80); Nucleated Red Blood Cell % 0 /100 WBC (0); Platelet Count 221 Thou/mm3 (140-440); RDW Standard Deviation 41.7 fL (35.1-43.9); Red Blood Count 3.86 Miln/mm3 (4.50-5.90); White Blood Count 7.8 Thou/mm3 (3.8-10.6)
[2024-09-04 06:34] LABS: Alanine Aminotransferase 17 U/L (10-49); Albumin, Serum 3.3 gm/dL (3.4-4.8); Albumin/Globulin Ratio 1.5 (1.2-2.2); Alkaline Phosphatase 58 U/L (46-116); Anion Gap 8 (7-16); BUN/Creatinine Ratio 34 Ratio (12-20); Bilirubin,Total 0.4 mg/dL (0.3-1.2); Blood Urea Nitrogen 27 mg/dL (9-23); Calcium 8.8 mg/dL (8.3-10.6); Calcium (Corrected) 9.4 mg/dL (8.5-10.1); Chloride 100 mMol/L (98-107); Creatinine (Component) 0.8 mg/dL (0.6-1.3); Estimated Creatinine Clearance 52.7 mL/min (>60); Globulin 2.2 gm/dL (2.3-3.5); Glucose 171 mg/dL (74-106); Osmolality,Calculated 288 (275-295); Phosphorous 2.7 mg/dL (2.4-5.1); Potassium 4.6 mMol/L (3.4-5.1); Sodium 140 mMol/L (136-145); Total Protein 5.5 gm/dL (5.7-8.2); eGFR > 60 See Note
[2024-09-04 06:51] LABS: Aspartate Amino Transferase < 8 U/L (0-34)
[2024-09-04] MEDS: TAMSULOSIN HCL 0.4 MG CAPSULE PO (10:14)
[2024-09-04] MEDS: CEFEPIME INJ 2 GM in SODIUM CHLORIDE 0.9% (Popper) 50 ML IV ×2 (10:14→20:16)
[2024-09-04] MEDS: DOXYCYCLINE INJ 100 MG in SODIUM CHLORIDE 0.9% (POP) 100 ML IV ×2 (10:51→21:47)
--- NOTE | 2024-09-04 12:02 | PC.PT ---
This PT evaluated the patient last 08/30/24 and this PT suggested wc due to patient has dyspnea after ambulating 20 feet. Ester SANDOVAL made aware of the need for the wc. This PT approached patient at 1030, niece at bedside. Patient is currently on Bipap. Patient states he can transfers and he can walk for short distances. Patient is alert and oriented. Will cancel PT evaluation since ambulation will not be a goal at this time due to patient's medical condition. Dr. Logan made aware. Patient will also benefit for hospital bed since due to his dyspnea.
--- NOTE | 2024-09-04 14:32 | PC.SS ---
Addendum entered by LORI Sahu 09/04/24 14:39: Notified bed side nurse Phuong leon of the need for an oxygen delivery test to be completed to submit for DME order. Addendum entered by LORI Sahu 09/04/24 14:38: Notified patient's daughter Lakia of [facility] trying to get ahold of the patient's family. Lakia confirmed patient's demographic information for the DME order. Original Note: SS update: patient will need home oxygen. Spoke with [employer] as it was previously ordered by on previous admission, per [facility] staff Nia, the family had been contacted multiple times to provide payment for the DME. At this time, Nia indicates the patient is aligned with [employer] and can send order for the requested/needed DME. Per PT Michell, informs it would be fine to order Wheelchair and hospital bed for the patient as well.
--- NOTE | 2024-09-04 14:40 | ESPR_ITS ---
<Statement entered by Aliza Cheng MD - 09/05/24 07:47> I discussed with and supervised the event marketing intern physician who took care of this patient. I personally saw and examined the patient and discussed the assessment and plan with the entire medicine team, including my attending Dr. Logan , I agree with most of the assessment and plan as documented below Aliza Cheng M.D. PGY-2 Documentation for date of: 09/04/24 Subjective Subjective Interval history: Patient seen today at the bedside fine awake, alert, oriented x 3. No overnight events reported. Vital signs stable at this time. Labs at this time stable. Will continue with IV antibiotic therapy, breathing treatments, BiPAP at night. Awaiting final blood culture results. Anticipate discharge in the next 24 to 48 hours. Exam Vital Signs Temp Pulse Resp BP Pulse Ox O2 Del Method O2 Flow Rate 98.1 F 98 24 H 145/65 H 93 L Nasal Cannula 4 09/04/24 12:00 09/04/24 12:00 09/04/24 12:00 09/04/24 12:00 09/04/24 12:00 09/04/24 12:00 09/04/24 12:00 FiO2 30 09/04/24 12:00 Narrative Exam Physical Exam GENERAL: NAD, AAOx3, on Bipap HEENT: Moist mucosa. Eyes open, symmetrical, & clear CARDIO: Heart RRR, no obvious murmurs PULM: No noted coughing/dyspnea CTA B/L, no R/W/R GI: Abdomen soft, nondistended, no pain on palpation. BSx4 SKIN/MSK/EXT: No wounds/rashes/edema/amputations, no pain on palpation. Pedal pulses present B/L NEURO: AAOx3, no focal neuro deficits, able to move all 4 extremities Objective Labs 09/04/24 04:38 09/04/24 04:38 Labs: Laboratory Results - last 24 hr 09/04/24 04:38 WBC 7.8 D RBC 3.86 L Hgb 10.4 L Hct 33.3 L MCV 86 MCH 26.9 MCHC 31.2 RDW Std Deviation 41.7 Plt Count 221 Neut % (Auto) 93 H Lymph % (Auto) 4 L [place] % (Auto) 2 Eos % (Auto) 0 Baso % (Auto) 0 Neut # (Auto) 7.3 Lymph # (Auto) 0.3 L [place] # (Auto) 0.2 Eos # (Auto) 0.0 Baso # (Auto) 0.0 Immature Gran # (Auto) 0.03 H Absolute Nucleated RBC 0.00 Immature Gran % 0 Nucleated RBC % 0 Sodium 140 Potassium 4.6 Chloride 100 Carbon Dioxide 32.0 H Anion Gap 8 BUN 27 H Creatinine 0.8 Estim Creat Clear Calc 52.7 L eGFR > 60 BUN/Creatinine Ratio 34 H Glucose 171 H Calculated Osmolality 288 Calcium 8.8 Corrected Calcium 9.4 Phosphorus 2.7 Magnesium 2.0 Total Bilirubin 0.4 AST < 8 ALT 17 Alkaline Phosphatase 58 Total Protein 5.5 L Albumin 3.3 L Globulin 2.2 L Albumin/Globulin Ratio 1.5 ABG Interpretation ABG results: 09/03/24 09/03/24 09/03/24 00:38 02:56 08:05 ABG pH 7.29 L 7.31 L 7.35 ABG pCO2 75 H* 66 H 61 H ABG pO2 82 L 67 L 88 D ABG HCO3 37 H 33 H 34 H ABG O2 Saturation 96 93 98 ABG Base Excess 7 H 5 H 7 H Quality Measures Quality Measures none Advance care planning discussed with:: patient Assessment & Plan Assessment Current Active Medications: Generic Name Dose Route Start Last Admin Trade Name Freq PRN Reason Stop Dose Admin Acetaminophen 650 mg 09/03/24 04:53 Acetaminophen 325 Mg Tablet PO 10/03/24 04:52 Q6H PRN Fever >101.5 Acetaminophen 650 mg 09/03/24 04:53 Acetaminophen 325 Mg Tablet PO 10/03/24 04:52 Q6H PRN PAIN SCALE 1-3 (mild Albuterol/Ipratropium 3 ml 09/03/24 07:00 09/04/24 11:01 Albuterol/Ipratropium (Duoneb) Rt Katarina 3 Ml Nebu INH 10/03/24 06:59 3 ml Q4HRRT DEBO Administration Heparin Sodium (Porcine) 5,000 unit 09/03/24 06:00 09/04/24 05:09 Heparin Sod Inj 5000 Unit/Ml Vial SC 09/17/24 05:59 5,000 unit Q8HR DEBO Administration Doxycycline Hyclate 100 mg/ 100 mls @ 100 mls/hr 09/03/24 21:00 09/04/24 10:51 Sodium Chloride IV 09/10/24 20:59 100 mls/hr BID DEBO Administration Cefepime HCl 2 gm/ Sodium 50 mls @ 100 mls/hr 09/03/24 21:00 09/04/24 10:14 Chloride IV 09/10/24 20:59 100 mls/hr Q12HR DEBO Administration Methylprednisolone Sodium Succinate 40 mg 09/03/24 09:00 09/04/24 10:14 Methylprednisolone Sod Succ 40 Mg Vial IVP 09/10/24 08:59 40 mg BID DEBO Administration Ondansetron HCl 4 mg 09/03/24 04:53 Ondansetron Inj 2 Mg/Ml Inj 2 Ml IV 10/03/24 04:52 Q6H PRN NAUSEA OR VOMITING Protocol Sennosides 1 tab 09/03/24 04:53 Senna Tablet PO 10/03/24 04:52 QDAY PRN constipation Protocol Tamsulosin HCl 0.4 mg 09/03/24 09:00 09/04/24 10:14 Tamsulosin Hcl 0.4 Mg Capsule PO 10/03/24 08:59 0.4 mg QDAY DEBO Administration Plan 84-year-old male patient reportedly with past medical history of COPD on 2 L of oxygen at home, BPH, hypertension, on a regular treatment presented to the ED due to worsening shortness of breath for the past 2 days. Patient was admitted for tx of COPD exacerbation and possible pneumonia. #Acute on chronic hypercapnic hypoxic respiratory failure most likely multifactorial secondary to COPD exacerbation and pneumonia #COPD exacerbation #Community vs hospital-acquired pneumonia #Pulmonary embolism-ruled out #GNR bacteremia Patient was recently admitted to the hospital on 29 August 2023 due to COPD exacerbation and pneumonia. Patient received ceftriaxone, azithromycin, breathing treatments and methylprednisolone. Presented today with worsening shortness of breath over the past 2 days, he was discharged on Augmentin, azithromycin, methylprednisone pack. Found to have tachycardia of 118, respiratory rate of 24 19.6 most likely secondary to steroids, his hemoglobin is 13.1, and platelets within normal limits. His ABG showed pH of 7.31, CO2 of 66, pO2 of 67, HCO3 of 33, and O2 saturation of 93% During his last admission he was tested negative for cocci, Legionella and his blood cultures were negative. CT angio was done to rule out pulmonary embolism however CT report still pending, and review of initial images there was no obvious signs of consolidation and there was extensive emphysematous changes bilaterally. CTA showed no evidence of pulmonary embolism ABGs improved compared to admission ABGs Blood cultures from 08/28/2024 grew GNR and reported on 09/03/2024 BCx negative in 24 hours ? on DuoNebs scheduled every 4 hours ? Solu-Medrol 40 mg IV twice daily ? on doxycycline 100 mg twice daily IV, ? on cefepime 2 g IV every 12 hours ? Maintain O2 saturation between 88 and 92% on BiPAP ? f/u MRSA screening ? F/u urine cultures #History of hypertension Patient was prescribed nifedipine open discharge however and med reconciliation it was reported that the patient was not using his home medication. On presentation his blood pressure was 177/99 however after he was given Ativan and was started on BiPAP his blood pressure decreased to 124/92 ? Monitor blood pressure and resume blood pressure medication nifedipine 60 mg when appropriate # history of BPH Previous ultrasound showed prostatomegaly moderate. ? on flomax - Bladder scan and straight Javier if urinary retention was noted or urine volume of more than 400 mL Case discussed with my senior Dr. Cheng PGY-[address] Desmond Mcdonnell MD PGY-1 Disposition: Medtele Fluids: None Feeding: regular Thrombo prophylaxis: heparin Gastric Ulcer prophylaxis: not indicated CODE STATUS: Full code Attending Provider Attestation/Addendum I attest that I was physically present for the evaluation, physical examination, lab and imaging review of the patient with the residents. I discussed the case with the residents and agree with the findings and plans of care as documented above. At bedside today, patient states that he is feeling much better compared to his presentation. Saturating well on nasal cannula. Received BiPAP overnight. Vital signs have been stable. WBC is downtrending. We will continue with IV antibiotics and continue to wean down on oxygen pending blood cultures. Amie Logan MD
--- NOTE | 2024-09-04 16:06 | PC.NURSE ---
patient at rest with O2 at 2l NC 95%, at rest on room air patient O2 89%, and sitting up and attempting to stand on Room air patient O2 went down to 80%. placed patient back in bed with 2L NC back to 95%
[2024-09-04] MEDS: NIFEdipine XL 30 MG TABCR 60 MG PO (16:57)
--- NOTE | 2024-09-04 21:02 | PC.NURSE ---
Per monitor technician, Pt has occasional episodes of PVCs. Checked on patient, no complaints of any discomfort or distress. Dr. Hou was made aware. provided with patient's latest K and Mg levels. No new orders received, said to keep monitoring patient.
[2024-09-05] VITALS (17 sets, daily range): BP systolic 115–135; BP diastolic 65–77; PULSE 29–107; RESP 14–26; TEMP 36.2–36.8; O2SAT 93–99
[2024-09-05] MEDS: ALBUTEROL/IPRATROPIUM (Duoneb) RT SOL 3 ML NEBU INH ×6 (02:27→22:22)
[2024-09-05] MEDS: HEPARIN SOD INJ 5000 UNIT/ML VIAL SC ×2 (05:12→22:14)
[2024-09-05 06:00] LABS: Basophils % (Auto) 0 % (0-2.5); Eosinophils % (Auto) 0 % (0-10); Hematocrit 33.4 % (41.0-53.0); Hemoglobin 10.7 g/dL (13.5-16.0); Immature Granulocytes % (Auto) 1 % (0-0); Immature Granulocytes Auto 0.06 Thou/mm3 (0.00-0.00); Lymphocytes # (Auto) 0.3 Thou/mm3 (1.0-4.8); Lymphocytes % (Auto) 3 % (10-50); Mean Corpuscular Hemoglobin 27.4 pg (25.0-35.0); Mean Corpuscular Volume 85 fL (80-100); Monocytes # (Auto) 0.3 Thou/mm3 (0.0-0.8); Monocytes % (Auto) 4 % (0-12); Neutrophils # (Auto) 7.5 Thou/mm3 (1.8-7.7); Neutrophils % (Auto) 92 % (37-80); Nucleated Red Blood Cell % 0 /100 WBC (0); Platelet Count 270 Thou/mm3 (140-440); RDW Standard Deviation 42.3 fL (35.1-43.9); Red Blood Count 3.91 Miln/mm3 (4.50-5.90); White Blood Count 8.1 Thou/mm3 (3.8-10.6)
[2024-09-05 06:35] LABS: Alanine Aminotransferase 17 U/L (10-49); Albumin, Serum 3.4 gm/dL (3.4-4.8); Albumin/Globulin Ratio 1.4 (1.2-2.2); Alkaline Phosphatase 60 U/L (46-116); Anion Gap 10 (7-16); Aspartate Amino Transferase < 10 U/L (0-34); BUN/Creatinine Ratio 36 Ratio (12-20); Bilirubin,Total 0.4 mg/dL (0.3-1.2); Blood Urea Nitrogen 29 mg/dL (9-23); Calcium (Corrected) 9.5 mg/dL (8.5-10.1); Carbon Dioxide 31.5 mMol/L (20.0-31.0); Chloride 101 mMol/L (98-107); Creatinine (Component) 0.8 mg/dL (0.6-1.3); Estimated Creatinine Clearance 52.7 mL/min (>60); Globulin 2.4 gm/dL (2.3-3.5); Glucose 200 mg/dL (74-106); Osmolality,Calculated 294 (275-295); Phosphorous 3.5 mg/dL (2.4-5.1); Potassium 4.6 mMol/L (3.4-5.1); Sodium 142 mMol/L (136-145); Total Protein 5.8 gm/dL (5.7-8.2); eGFR > 60 See Note
[2024-09-05] MEDS: NIFEdipine XL 30 MG TABCR 60 MG PO (07:50)
[2024-09-05] MEDS: TAMSULOSIN HCL 0.4 MG CAPSULE PO (07:50)
[2024-09-05] MEDS: CEFEPIME INJ 2 GM in SODIUM CHLORIDE 0.9% (Popper) 50 ML IV ×2 (07:52→20:44)
--- NOTE | 2024-09-05 08:18 | PD.RESDS ---
Planned Discharge Date 09/05/24 DS: Providers Provider Date of admission: 09/03/24 04:53 Primary care physician: Physician No Primary/Family Admitting Provider: Christy Moreno MD Attending Provider on Admission: Amie Logan MD Attending Provider on DC: Rosas Mcdonnell MD Discharging Provider: Rosas Mcdonnell MD Hospital Course Hospital Course Hospital course: Patient seen today at the bedside fine awake, alert, oriented x 3. No overnight events reported. Vital signs stable at this time. Labs at this time stable. Will continue with IV antibiotic therapy, breathing treatments, BiPAP at night. Awaiting final blood culture results. Anticipate discharge in the next 24 to 48 hours. Time Spent with Patient Time attestation: Total time spent providing and/or coordinating discharge services: Exam Vital Signs Temp Pulse Resp BP Pulse Ox O2 Del Method O2 Flow Rate 97.2 F 88 18 130/66 99 Nasal Cannula 3 09/05/24 08:00 09/05/24 08:00 09/05/24 08:00 09/05/24 08:00 09/05/24 08:00 09/05/24 08:00 09/05/24 08:00 FiO2 30 09/05/24 04:00 Discharge Plan Plan Patient condition on transfer: Stable Prescriptions/Referrals Prescriptions/Med Rec: No Action trazodone 100 mg tablet 100 mg PO QDAY Qty: 30 0RF Spiriva Respimat 2.5 mcg/actuation mist 2 puff inhalation QDAY Qty: 4 0RF nifedipine 60 mg tablet extended release 60 mg PO QDAY 30 Days Qty: 30 0RF fluticasone propion-salmeterol 230-21 mcg/actuation HFA aerosol inhaler 2 puff inhalation Q12H 30 Days Qty: 12 0RF albuterol sulfate 90 mcg/actuation aerosol powdr breath activated 2 inh inhalation Q6H PRN (Reason: shortness of breath or wheezing) 30 Days Qty: 1 0RF methylprednisolone [Medrol (Prabhjot)] 4 mg tablets,dose pack 4 mg PO QAM Qty: 21 0RF ipratropium-albuterol 0.5 mg-3 mg(2.5 mg base)/3 mL solution for nebulization 3 ml inhalation Q6H PRN (Reason: shortness of breath) 30 Days Qty: 180 0RF amoxicillin-pot clavulanate 500-125 mg tablet 1 tab PO Q12H Patient Comments: TAKE ONE TABLET BY MOUTH TWICE DAILY FOR 2 DAYS azithromycin 500 mg tablet 500 mg PO QDAY Patient Comments: TAKE ONE TABLET BY MOUTH EVERY DAY FOR INFECTION start ON DAY TWO of therapy Referrals: No Primary/Family,Physician [Primary Care Provider] - Patient/Caregiver Discharge Instructions Print Language: Belgian
[2024-09-05] MEDS: DOXYCYCLINE INJ 100 MG in SODIUM CHLORIDE 0.9% (POP) 100 ML IV ×2 (09:11→22:00)
[2024-09-05] MEDS: Artificial Tears 225 DROP/15 ML BTL BOTH EYES (11:11)
--- NOTE | 2024-09-05 13:30 | PC.SS ---
SS received call from [facility] and they cannot accommodate order. Patient's insurance changed. Patient's insurance is now contracted with [facility]. SS re sent order out and waiting on confirmation and delivery.
[2024-09-05] MEDS: hydrOXYzine HCL 10 MG TABLET PO (18:29)
--- NOTE | 2024-09-05 18:38 | ESPR_ITS ---
<Statement entered by Beth Kelly MD - 09/05/24 18:54> I discussed with and supervised the chemist intern physician who took care of this patient. I personally saw and examined the patient and discussed the assessment and plan with the entire medicine team, including my attending Dr. Logan, I agree with the assessment and plan as documented below Patient seen and examined at bedside today. Labs and imaging reviewed. Beth Kelly MD PGY-3 Disclaimer: Despite multiple revisions, due to the dictation software being used, the document bellow may not be free of grammatical errors including phonetic/typographic errors. However, this does not deter from our commitment to providing health care in the patient's best interest in mind. Documentation for date of: 09/05/24 Subjective Subjective Interval history: Patient seen today at the bedside fine awake, alert, oriented x 3. No overnight events reported. States improvement in symptoms. On examination some mild wheezing noted on the right side. Patient was supposed to be discharged today however home oxygen has not been delivered to the patient's home. Anticipate discharge in the next 24-48 hours. Exam Vital Signs Temp Pulse Resp BP Pulse Ox O2 Del Method O2 Flow Rate 97.4 F 99 26 H 129/77 99 Room Air 2 09/05/24 15:43 09/05/24 18:22 09/05/24 18:22 09/05/24 15:43 09/05/24 18:22 09/05/24 15:43 09/05/24 18:10 FiO2 30 09/05/24 18:22 Narrative Exam Physical Exam GENERAL: NAD, AAOx3, on Bipap HEENT: Moist mucosa. Eyes open, symmetrical, & clear CARDIO: Heart RRR, no obvious murmurs PULM: No noted coughing/dyspnea, milld wheezing on right side GI: Abdomen soft, nondistended, no pain on palpation. BSx4 SKIN/MSK/EXT: No wounds/rashes/edema/amputations, no pain on palpation. Pedal pulses present B/L NEURO: AAOx3, no focal neuro deficits, able to move all 4 extremities Objective Labs 09/05/24 05:04 09/05/24 05:04 Labs: Laboratory Results - last 24 hr 09/05/24 05:04 WBC 8.1 RBC 3.91 L Hgb 10.7 L Hct 33.4 L MCV 85 MCH 27.4 MCHC 32.0 RDW Std Deviation 42.3 Plt Count 270 D Neut % (Auto) 92 H Lymph % (Auto) 3 L [place] % (Auto) 4 Eos % (Auto) 0 Baso % (Auto) 0 Neut # (Auto) 7.5 Lymph # (Auto) 0.3 L [place] # (Auto) 0.3 Eos # (Auto) 0.0 Baso # (Auto) 0.0 Immature Gran # (Auto) 0.06 H Absolute Nucleated RBC 0.00 Immature Gran % 1 H Nucleated RBC % 0 Sodium 142 Potassium 4.6 Chloride 101 Carbon Dioxide 31.5 H Anion Gap 10 BUN 29 H Creatinine 0.8 Estim Creat Clear Calc 52.7 L eGFR > 60 BUN/Creatinine Ratio 36 H Glucose 200 H Calculated Osmolality 294 Calcium 9.0 Corrected Calcium 9.5 Phosphorus 3.5 Magnesium 2.0 Total Bilirubin 0.4 AST < 10 ALT 17 Alkaline Phosphatase 60 Total Protein 5.8 Albumin 3.4 Globulin 2.4 Albumin/Globulin Ratio 1.4 ABG Interpretation ABG results: 09/03/24 09/03/24 09/03/24 00:38 02:56 08:05 ABG pH 7.29 L 7.31 L 7.35 ABG pCO2 75 H* 66 H 61 H ABG pO2 82 L 67 L 88 D ABG HCO3 37 H 33 H 34 H ABG O2 Saturation 96 93 98 ABG Base Excess 7 H 5 H 7 H Quality Measures Quality Measures none Advance care planning discussed with:: patient Assessment & Plan Assessment Current Active Medications: Generic Name Dose Route Start Last Admin Trade Name Freq PRN Reason Stop Dose Admin Acetaminophen 650 mg 09/03/24 04:53 Acetaminophen 325 Mg Tablet PO 10/03/24 04:52 Q6H PRN Fever >101.5 Acetaminophen 650 mg 09/03/24 04:53 Acetaminophen 325 Mg Tablet PO 10/03/24 04:52 Q6H PRN PAIN SCALE 1-3 (mild Albuterol/Ipratropium 3 ml 09/03/24 07:00 09/05/24 18:07 Albuterol/Ipratropium (Duoneb) Rt Katarina 3 Ml Nebu INH 10/03/24 06:59 3 ml Q4HRRT DEBO Administration Artificial Tears 0 drop 09/05/24 08:53 09/05/24 11:11 Artificial Tears 225 Drop/15 Ml Btl BOTH EYES 10/05/24 08:52 2 drops PRN PRN Administration TO KEEP EYES MOIST Heparin Sodium (Porcine) 5,000 unit 09/03/24 06:00 09/05/24 13:53 Heparin Sod Inj 5000 Unit/Ml Vial SC 09/17/24 05:59 Not Given Q8HR DEBO Hydralazine HCl 10 mg 09/04/24 16:15 Hydralazine Inj 20 Mg/Ml Vial IV 10/04/24 16:14 Q6H PRN SBP>180 Cefepime HCl 2 gm/ Sodium 50 mls @ 100 mls/hr 09/03/24 21:00 09/05/24 07:52 Chloride IV 09/10/24 20:59 100 mls/hr Q12HR DEBO Administration Doxycycline Hyclate 100 mg/ 100 mls @ 100 mls/hr 09/05/24 21:00 Sodium Chloride IV 09/10/24 20:59 BID DEBO Methylprednisolone Sodium Succinate 40 mg 09/03/24 09:00 09/05/24 07:51 Methylprednisolone Sod Succ 40 Mg Vial IVP 09/10/24 08:59 40 mg BID DEBO Administration Nifedipine 60 mg 09/04/24 16:15 09/05/24 07:50 Nifedipine Xl 30 Mg Tabcr PO 10/04/24 16:14 60 mg QDAY DEBO Administration Ondansetron HCl 4 mg 09/03/24 04:53 Ondansetron Inj 2 Mg/Ml Inj 2 Ml IV 10/03/24 04:52 Q6H PRN NAUSEA OR VOMITING Protocol Sennosides 1 tab 09/03/24 04:53 Senna Tablet PO 10/03/24 04:52 QDAY PRN constipation Protocol Tamsulosin HCl 0.4 mg 09/03/24 09:00 09/05/24 07:50 Tamsulosin Hcl 0.4 Mg Capsule PO 10/03/24 08:59 0.4 mg QDAY DEBO Administration Plan 84-year-old male patient reportedly with past medical history of COPD on 2 L of oxygen at home, BPH, hypertension, on a regular treatment presented to the ED due to worsening shortness of breath for the past 2 days. Patient was admitted for tx of COPD exacerbation and possible pneumonia. #Acute on chronic hypercapnic hypoxic respiratory failure most likely multifactorial secondary to COPD exacerbation and pneumonia #COPD exacerbation #Community vs hospital-acquired pneumonia #Pulmonary embolism-ruled out #GNR bacteremia-improving Patient was recently admitted to the hospital on 29 August 2023 due to COPD exacerbation and pneumonia. Patient received ceftriaxone, azithromycin, breathing treatments and methylprednisolone. Presented today with worsening shortness of breath over the past 2 days, he was discharged on Augmentin, azithromycin, methylprednisone pack. Found to have tachycardia of 118, respiratory rate of 24 19.6 most likely secondary to steroids, his hemoglobin is 13.1, and platelets within normal limits. His ABG showed pH of 7.31, CO2 of 66, pO2 of 67, HCO3 of 33, and O2 saturation of 93% During his last admission he was tested negative for cocci, Legionella and his blood cultures were negative. CT angio was done to rule out pulmonary embolism however CT report still pending, and review of initial images there was no obvious signs of consolidation and there was extensive emphysematous changes bilaterally. CTA showed no evidence of pulmonary embolism ABGs improved compared to admission ABGs Blood cultures from 08/28/2024 grew GNR and reported on 09/03/2024 BCx negative in 48 hours, Negative MRSA ? on DuoNebs scheduled every 4 hours ? Solu-Medrol 40 mg IV twice daily ? on doxycycline 100 mg twice daily IV, ? on cefepime 2 g IV every 12 hours ? Maintain O2 saturation between 88 and 92% on BiPAP #Hypertension Patient was prescribed nifedipine open discharge however and med reconciliation it was reported that the patient was not using his home medication. On presentation his blood pressure was 177/99 however after he was given Ativan and was started on BiPAP his blood pressure decreased to 124/92 ?resumed nifedipine 60 mg # history of BPH Previous ultrasound showed prostatomegaly moderate. ? on flomax - Bladder scan and straight Javier if urinary retention was noted or urine volume of more than 400 mL Case discussed with my senior Dr. Kelly PGY-[address] Desmond Mcdonnell MD PGY-1 Disposition: Medtele Fluids: None Feeding: regular Thrombo prophylaxis: heparin Gastric Ulcer prophylaxis: not indicated CODE STATUS: Full code Attending Provider Attestation/Addendum I attest that I was physically present for the evaluation, physical examination, lab and imaging review of the patient with the residents. I discussed the case with the residents and agree with the findings and plans of care as documented above. At bedside, patient appears comfortable, saturating well on 2 L nasal cannula.? States that he gets anxious every now and then but denied any other new complaints.? Vital signs are stable, WBC count have been stable along with rest of the labs.? Patient deemed stable for discharge on home oxygen.? We will discuss with case management regarding his home oxygen and medications to be ready before discharge. Amie Logan MD
[2024-09-06] VITALS (14 sets, daily range): BP systolic 123–149; BP diastolic 65–77; PULSE 74–99; RESP 18–22; TEMP 36.7–37.1; O2SAT 96–100
[2024-09-06] MEDS: ALBUTEROL/IPRATROPIUM (Duoneb) RT SOL 3 ML NEBU INH ×4 (02:27→20:22)
[2024-09-06] MEDS: HEPARIN SOD INJ 5000 UNIT/ML VIAL SC ×3 (05:52→21:39)
--- NOTE | 2024-09-06 07:10 | PD.RESDS ---
Planned Discharge Date 09/06/24 DS: Providers Provider Date of admission: 09/03/24 04:53 Primary care physician: Physician No Primary/Family Admitting Provider: Christy Moreno MD Attending Provider on Admission: Amie Logan MD Attending Provider on DC: Beth Kelly MD Discharging Provider: Beth Kelly MD Hospital Course Hospital Course Hospital course: 84-year-old man with past medical history of COPD on 2 L home oxygen, BPH, hypertension who came to the ED with chief complaint of shortness of breath. Per patient family member has been out of oxygen as well as inhalers and DuoNebs at home. Patient and family member daughter at the bedside stated that he has been presenting 3 days of increased cough, sputum production and shortness of breath for which he decided to come to the ED patient denied any sick contacts at home, chills, fevers or any other associated symptom on arrival. At the ED patient was febrile, tachycardic and tachypneic, hypertensive and hypoxic saturating 88% on room air. Significant labs showed lactic acidosis, ABG showed hypercapnia. Chest x-ray showed bilateral pneumonia more pronounced on the right. Sepsis alert was called and patient received DuoNebs, steroids IV fluids per sepsis protocol IV antibiotics Rocephin and azithromycin as well as hydralazine and patient was admitted for further treatment and management of hypertensive emergency, acute on chronic hypoxic and hypercapnic respiratory failure secondary to COPD exacerbation in the setting of community-acquired pneumonia. During hospital course patient required BiPAP to improve hypoxia and hypercapnia. Today at the bedside patient is AO x 3, respond to questions probably saturating 97% on 2 L oxygen per nasal cannula, endorsed that he feeling well that he wants to go home, worked with physical therapy otherwise he was shortness of breath if he was walking distances for which physical therapy recommend wheelchair. Patient is safe and stable for discharge all questions were answered recommendation were given to come to the ED at any time if he is not feeling well or symptoms did not improve. Patient will need to follow-up with PCP in 1 week after discharge ? Start Levaquin 750 mg p.o. daily for 5 more days ? Medrol pack ? Home oxygen as needed #Acute on chronic hypercapnic hypoxic respiratory failure most likely multifactorial secondary to COPD exacerbation and pneumonia resolved #COPD exacerbation resolved #Community vs hospital-acquired pneumonia improving #Pulmonary embolism-ruled out #GNR bacteremia resolved #Hypertension #history of BPH Patient discussed with my attending Dr Desmond Kelly MD PGY-3 Disclaimer: Despite multiple revisions, due to the dictation software being used, the document bellow may not be free of grammatical errors including phonetic/typographic errors. However, this does not deter from our commitment to providing health care in the patient's best interest in mind. Time Spent with Patient Time attestation: Total time spent providing and/or coordinating discharge services: Exam Vital Signs Temp Pulse Resp BP Pulse Ox O2 Del Method O2 Flow Rate 98.2 F 81 19 124/68 99 Nasal Cannula 2 09/06/24 04:00 09/06/24 06:16 09/06/24 06:16 09/06/24 04:00 09/06/24 06:16 09/06/24 04:00 09/06/24 06:16 FiO2 30 09/05/24 18:22 Discharge Plan Plan Patient Disposition: HOME (Self Care) Patient condition on transfer: Stable Care Plan Goals: All questions were answered and recommendation were given, the ED at any time if he is not feeling well Patient will need to follow-up with primary care provider in 5 to 7 days after discharge Patient will be discharged home with: ? Levofloxacin 750 mg p.o. daily for 5 more days ? Continue home medications ? Oxygen 2 L as needed Se respondieron todas las preguntas y se dieron recomendaciones. Si no se siente jorge, puede acudir al servicio de urgencias en cualquier momento. El paciente deber? realizar un seguimiento con lam m?dico de cabecera de 5 a 7 d?as despu?s del jass. El paciente recibir? el jass y volver? a casa con: Levofloxacin 750 mg por v?a oral al d?a roberto carlos 5 d?as m?s. Continuar con la medicaci?n en casa. Ox?héctor 2 Litros seg?n sea necesario. Prescriptions/Referrals Prescriptions/Med Rec: New tamsulosin 0.4 mg Capsule 0.4 mg PO QDAY Qty: 10 0RF artificial tear([id number]) 0.1-0.3-0.2 % Drops 2 drp Both eyes PRN PRN (Reason: To Keep Eyes Moist) Qty: 15 0RF levofloxacin 750 mg tablet 750 mg PO QDAY 5 Days Qty: 5 0RF Continued trazodone 100 mg tablet 100 mg PO QDAY Qty: 30 0RF Spiriva Respimat 2.5 mcg/actuation mist 2 puff inhalation QDAY Qty: 4 0RF nifedipine 60 mg tablet extended release 60 mg PO QDAY 30 Days Qty: 30 0RF fluticasone propion-salmeterol 230-21 mcg/actuation HFA aerosol inhaler 2 puff inhalation Q12H 30 Days Qty: 12 0RF albuterol sulfate 90 mcg/actuation aerosol powdr breath activated 2 inh inhalation Q6H PRN (Reason: shortness of breath or wheezing) 30 Days Qty: 1 0RF methylprednisolone [Medrol (Prabhjot)] 4 mg tablets,dose pack 4 mg PO QAM Qty: 21 0RF ipratropium-albuterol 0.5 mg-3 mg(2.5 mg base)/3 mL solution for nebulization 3 ml inhalation Q6H PRN (Reason: shortness of breath) 30 Days Qty: 180 0RF Discontinued amoxicillin-pot clavulanate 500-125 mg tablet 1 tab PO Q12H Patient Comments: TAKE ONE TABLET BY MOUTH TWICE DAILY FOR 2 DAYS azithromycin 500 mg tablet 500 mg PO QDAY Patient Comments: TAKE ONE TABLET BY MOUTH EVERY DAY FOR INFECTION start ON DAY TWO of therapy Referrals: No Primary/Family,Physician [Primary Care Provider] - Patient/Caregiver Discharge Instructions Meds to Beds: No Discharge Activity: activity as tolerated Education Materials: COPD: Chronic Coughing Print Language: Yakut Stand Alone Forms: Aimee Award Info., Patient Portal Info Letter Discharge Order Discharge Orders: Discharge (Routine); Ordered 09/05/24 Ordered By: Beth Kelly
[2024-09-06] MEDS: NIFEdipine XL 30 MG TABCR 60 MG PO (08:02)
[2024-09-06] MEDS: CEFEPIME INJ 2 GM in SODIUM CHLORIDE 0.9% (Popper) 50 ML IV ×2 (08:03→21:39)
[2024-09-06] MEDS: TAMSULOSIN HCL 0.4 MG CAPSULE PO (08:03)
[2024-09-06] MEDS: DOXYCYCLINE INJ 100 MG in SODIUM CHLORIDE 0.9% (POP) 100 ML IV ×2 (09:46→20:34)
--- NOTE | 2024-09-06 10:58 | PC.SS ---
SS spoke to Khang
--- NOTE | 2024-09-06 11:09 | PC.SS ---
SS went to bedside to speak with Karey Ace, who stated she contacted Medicare yesterday and they stated they are working on the issue. SS noted on [facility] is not contracted and per [facility] pt is aligned with [facility]. SS attempted to contact [facility] [phone], when selecting 0 to speak to 911 Emergency Dispatcher for Respiratory assistance, iot stated the service has been temporarily disabled.
--- NOTE | 2024-09-06 12:40 | PD.RESPRO ---
Documentation for date of: 09/06/24 Subjective Subjective Interval history: No overnight acute events Yesterday patient was ready for discharge otherwise due to problems with insurance authorization for O2 patient was not able to go home. This morning at bedside patient is anxious, saturating 99% on 2 L per nasal cannula, spoke with patient family member at the bedside her niece that the medication has been sent to the pharmacy and the able to pick it up at any time. Case management is informed about the case, pending O2 arrangement on authorization per insurance to be able to be discharged home. Exam Vital Signs Temp Pulse Resp BP Pulse Ox O2 Del Method O2 Flow Rate 98.4 F 92 20 137/77 H 99 Nasal Cannula 2 09/06/24 12:00 09/06/24 12:00 09/06/24 12:00 09/06/24 12:00 09/06/24 12:09/06/24 12:09/06/24 12:00 FiO2 30 09/06/24 08:00 Narrative Exam General: Anxious, thin, cachectic edentulous HEENT: NC/AT, PERRL, EOMI, Good conjugate gaze, moist mucous membranes. Neck: Supple, No masses, No adenopathy, carotid pulse 2+ bilaterally without bruits, No JVD, normal range of motion. Chest: Symmetrical, atraumatic, and with equal expansion , Nontender on palpation no deformity and no crepitus. CVS: S1 and S2 present, Regular rate and rhythm, No murmurs, rubs or gallops perceived during auscultation. Lungs: Decreased breath sounds bilaterally, occasional wheezing, rhonchi or rales perceived during auscultation, No intercostal or subcostal retraction. Abdomen : Soft, no tenderness to palpation, no guarding ,no rebound, +BS, no organomegaly. Extremities: No edema, warm well perfused, normal tone and ROM, strength and sensation intact, cap refill less than 2, +2 dp equal bilaterally, able to move all 4 extremities spontaneously. Skin: Intact, no rashes, no lesions, no erythema or jaundice noted Neuro: AOx4, reflex symmetric and sensation normal, no focal neurologic deficits noted, GCS 15 Psych: Anxious Objective Labs 09/05/24 05:04 09/05/24 05:04 Labs: Laboratory Results - last 24 hr 09/06/24 04:59 Phosphorus 4.0 ABG Interpretation ABG results: 09/03/24 09/03/24 09/03/24 00:38 02:56 08:05 ABG pH 7.29 L 7.31 L 7.35 ABG pCO2 75 H* 66 H 61 H ABG pO2 82 L 67 L 88 D ABG HCO3 37 H 33 H 34 H ABG O2 Saturation 96 93 98 ABG Base Excess 7 H 5 H 7 H Quality Measures Quality Measures none Advance care planning discussed with:: patient Assessment & Plan Assessment Current Active Medications: Generic Name Dose Route Start Last Admin Trade Name Freq PRN Reason Stop Dose Admin Acetaminophen 650 mg 09/03/24 04:53 Acetaminophen 325 Mg Tablet PO 10/03/24 04:52 Q6H PRN Fever >101.5 Acetaminophen 650 mg 09/03/24 04:53 Acetaminophen 325 Mg Tablet PO 10/03/24 04:52 Q6H PRN PAIN SCALE 1-3 (mild Albuterol/Ipratropium 3 ml 09/03/24 07:00 09/06/24 10:14 Albuterol/Ipratropium (Duoneb) Rt Katarina 3 Ml Nebu INH 10/03/24 06:59 3 ml Q4HRRT DEBO Administration Artificial Tears 0 drop 09/05/24 08:53 09/05/24 11:11 Artificial Tears 225 Drop/15 Ml Btl BOTH EYES 10/05/24 08:52 2 drops PRN PRN Administration TO KEEP EYES MOIST Heparin Sodium (Porcine) 5,000 unit 09/03/24 06:00 09/06/24 05:52 Heparin Sod Inj 5000 Unit/Ml Vial SC 09/17/24 05:59 5,000 unit Q8HR DEBO Administration Hydralazine HCl 10 mg 09/04/24 16:15 Hydralazine Inj 20 Mg/Ml Vial IV 10/04/24 16:14 Q6H PRN SBP>180 Cefepime HCl 2 gm/ Sodium 50 mls @ 100 mls/hr 09/03/24 21:00 09/06/24 08:03 Chloride IV 09/10/24 20:59 100 mls/hr Q12HR DEBO Administration Doxycycline Hyclate 100 mg/ 100 mls @ 100 mls/hr 09/05/24 21:00 09/06/24 09:46 Sodium Chloride IV 09/10/24 20:59 100 mls/hr BID DEBO Administration Methylprednisolone Sodium Succinate 40 mg 09/03/24 09:00 09/06/24 08:02 Methylprednisolone Sod Succ 40 Mg Vial IVP 09/10/24 08:59 40 mg BID DEBO Administration Nifedipine 60 mg 09/04/24 16:15 09/06/24 08:02 Nifedipine Xl 30 Mg Tabcr PO 10/04/24 16:14 60 mg QDAY DEBO Administration Ondansetron HCl 4 mg 09/03/24 04:53 Ondansetron Inj 2 Mg/Ml Inj 2 Ml IV 10/03/24 04:52 Q6H PRN NAUSEA OR VOMITING Protocol Sennosides 1 tab 09/03/24 04:53 Senna Tablet PO 10/03/24 04:52 QDAY PRN constipation Protocol Tamsulosin HCl 0.4 mg 09/03/24 09:00 09/06/24 08:03 Tamsulosin Hcl 0.4 Mg Capsule PO 10/03/24 08:59 0.4 mg QDAY DEBO Administration Plan 84-year-old male patient reportedly with past medical history of COPD on 2 L of oxygen at home, BPH, hypertension, on a regular treatment presented to the ED due to worsening shortness of breath for the past 2 days. Patient was admitted for tx of COPD exacerbation and possible pneumonia. 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 Patient received ceftriaxone, azithromycin, breathing treatments and methylprednisolone. Presented today with worsening shortness of breath over the past 2 days, he was discharged on Augmentin, azithromycin, methylprednisone pack. Found to have tachycardia of 118, respiratory rate of 24 19.6 most likely secondary to steroids, his hemoglobin is 13.1, and platelets within normal limits. His ABG showed pH of 7.31, CO2 of 66, pO2 of 67, HCO3 of 33, and O2 saturation of 93% During his last admission he was tested negative for cocci, Legionella and his blood cultures were negative. CT angio was done to rule out pulmonary embolism however CT report still pending, and review of initial images there was no obvious signs of consolidation and there was extensive emphysematous changes bilaterally. CTA showed no evidence of pulmonary embolism ABGs improved compared to admission ABGs Blood cultures from 08/28/2024 grew GNR and reported on 09/03/2024 BCx negative in 48 hours, Negative MRSA ? On DuoNebs scheduled every 6 hours ? Solu-Medrol 40 mg IV daily ? Continue doxycycline 100 mg twice daily IV, ? Continue cefepime 2 g IV every 12 hours ? Maintain O2 saturation between 88 and 92% per nasal cannula #Hypertension Patient was prescribed nifedipine open discharge however and med reconciliation it was reported that the patient was not using his home medication. On presentation his blood pressure was 177/99 however after he was given Ativan and was started on BiPAP his blood pressure decreased to 124/92 ? Continue nifedipine 60 mg #History of BPH Previous ultrasound showed prostatomegaly moderate. ? on flomax #Pulmonary embolism-ruled out Disposition: Medtele Fluids: None Feeding: regular Thrombo prophylaxis: heparin Gastric Ulcer prophylaxis: not indicated CODE STATUS: Full code Patient discussed with my attending Dr Desmond Kelly MD PGY-3 Disclaimer: Despite multiple revisions, due to the dictation software being used, the document bellow may not be free of grammatical errors including phonetic/typographic errors. However, this does not deter from our commitment to providing health care in the patient's best interest in mind. Attending Provider Attestation/Addendum I attest that I was physically present for the evaluation, physical examination, lab and imaging review of the patient with the residents. I discussed the case with the residents and agree with the findings and plans of care as documented above. At bedside today, patient states she is feeling well and does not have new complaints. Has been saturating well on 2 L nasal cannula. Lungs are clear on auscultation. Patient was planned for discharge yesterday but has was not able to get his home oxygen set up. Vital signs have been stable. Awaiting home oxygen set up for safe discharge. Amie Logan MD
[2024-09-07] VITALS (11 sets, daily range): BP systolic 108–156; BP diastolic 62–84; PULSE 74–97; RESP 19–24; TEMP 36.5–36.9; O2SAT 97–100
[2024-09-07] MEDS: ALBUTEROL/IPRATROPIUM (Duoneb) RT SOL 3 ML NEBU INH ×4 (01:29→18:59)
[2024-09-07] MEDS: HEPARIN SOD INJ 5000 UNIT/ML VIAL SC ×3 (05:23→21:06)
[2024-09-07 05:41] LABS: Basophils % (Auto) 0 % (0-2.5); Eosinophils % (Auto) 0 % (0-10); Hematocrit 35.8 % (41.0-53.0); Hemoglobin 11.4 g/dL (13.5-16.0); Immature Granulocytes % (Auto) 2 % (0-0); Immature Granulocytes Auto 0.18 Thou/mm3 (0.00-0.00); Lymphocytes # (Auto) 0.2 Thou/mm3 (1.0-4.8); Lymphocytes % (Auto) 2 % (10-50); Mean Corpuscular HGB Conc 31.8 g/dl (31.0-37.0); Mean Corpuscular Hemoglobin 27.7 pg (25.0-35.0); Mean Corpuscular Volume 87 fL (80-100); Monocytes # (Auto) 0.4 Thou/mm3 (0.0-0.8); Monocytes % (Auto) 4 % (0-12); Neutrophils # (Auto) 10.8 Thou/mm3 (1.8-7.7); Neutrophils % (Auto) 93 % (37-80); Nucleated Red Blood Cell % 0 /100 WBC (0); Platelet Count 311 Thou/mm3 (140-440); RDW Standard Deviation 43.5 fL (35.1-43.9); Red Blood Count 4.12 Miln/mm3 (4.50-5.90); White Blood Count 11.7 Thou/mm3 (3.8-10.6)
[2024-09-07 05:54] LABS: Alanine Aminotransferase 21 U/L (10-49); Albumin, Serum 3.3 gm/dL (3.4-4.8); Albumin/Globulin Ratio 1.4 (1.2-2.2); Alkaline Phosphatase 70 U/L (46-116); Anion Gap 6 (7-16); Aspartate Amino Transferase 14 U/L (0-34); BUN/Creatinine Ratio 40 Ratio (12-20); Bilirubin,Total 0.4 mg/dL (0.3-1.2); Blood Urea Nitrogen 36 mg/dL (9-23); Calcium 8.9 mg/dL (8.3-10.6); Calcium (Corrected) 9.5 mg/dL (8.5-10.1); Carbon Dioxide 33.2 mMol/L (20.0-31.0); Chloride 100 mMol/L (98-107); Creatinine (Component) 0.9 mg/dL (0.6-1.3); Estimated Creatinine Clearance 46.8 mL/min (>60); Globulin 2.3 gm/dL (2.3-3.5); Glucose 228 mg/dL (74-106); Magnesium 1.8 mg/dL (1.6-2.6); Osmolality,Calculated 292 (275-295); Phosphorous 3.4 mg/dL (2.4-5.1); Potassium 4.9 mMol/L (3.4-5.1); Sodium 139 mMol/L (136-145); Total Protein 5.6 gm/dL (5.7-8.2); eGFR > 60 See Note
--- NOTE | 2024-09-07 07:25 | PD.RESPRO ---
Documentation for date of: 09/07/24 Subjective Subjective Interval history: No overnight events Today at the bedside patient was resting comfortably in bed, asleep. Saturating 98% on 2 L per nasal cannula he denied any acute complaints at the moment he stated he feels much better that his shortness of breath has improved. Family member niece at the bedside stated that she bean picker machine operator already some of the medications at the pharmacy. Patient denied chest pain, palpitations, dizziness, or any other associated symptom at the moment. Pending insurance authorization for oxygen supply at home to be able to be safely discharged home. Case management is informed about the case. Exam Vital Signs Temp Pulse Resp BP Pulse Ox O2 Del Method O2 Flow Rate 97.7 F 89 20 108/62 99 Nasal Cannula 3 09/07/24 04:00 09/07/24 06:25 09/07/24 06:25 09/07/24 04:00 09/07/24 06:25 09/07/24 04:00 09/07/24 06:25 FiO2 30 09/06/24 08:00 Narrative Exam General: Frail, thin, cachectic edentulous HEENT: NC/AT, PERRL, EOMI, Good conjugate gaze, moist mucous membranes. Neck: Supple, No masses, No adenopathy, carotid pulse 2+ bilaterally without bruits, No JVD, normal range of motion. Chest: Symmetrical, atraumatic, and with equal expansion , Nontender on palpation no deformity and no crepitus. CVS: S1 and S2 present, Regular rate and rhythm, No murmurs, rubs or gallops perceived during auscultation. Lungs: Decreased breath sounds bilaterally, occasional wheezing, rhonchi or rales perceived during auscultation, No intercostal or subcostal retraction. Abdomen : Soft, no tenderness to palpation, no guarding ,no rebound, +BS, no organomegaly. Extremities: No edema, warm well perfused, normal tone and ROM, strength and sensation intact, cap refill less than 2, +2 dp equal bilaterally, able to move all 4 extremities spontaneously. Skin: Intact, no rashes, no lesions, no erythema or jaundice noted Neuro: AOx4, reflex symmetric and sensation normal, no focal neurologic deficits noted, GCS 15 Psych: Appropriate mood and affect Objective Labs 09/07/24 04:47 09/07/24 04:47 Labs: Laboratory Results - last 24 hr 09/07/24 04:47 WBC 11.7 H D RBC 4.12 L Hgb 11.4 L Hct 35.8 L MCV 87 MCH 27.7 MCHC 31.8 RDW Std Deviation 43.5 Plt Count 311 D Neut % (Auto) 93 H Lymph % (Auto) 2 L [place] % (Auto) 4 Eos % (Auto) 0 Baso % (Auto) 0 Neut # (Auto) 10.8 H Lymph # (Auto) 0.2 L [place] # (Auto) 0.4 Eos # (Auto) 0.0 Baso # (Auto) 0.0 Immature Gran # (Auto) 0.18 H Absolute Nucleated RBC 0.00 Immature Gran % 2 H Nucleated RBC % 0 Sodium 139 Potassium 4.9 Chloride 100 Carbon Dioxide 33.2 H Anion Gap 6 L BUN 36 H Creatinine 0.9 Estim Creat Clear Calc 46.8 L eGFR > 60 BUN/Creatinine Ratio 40 H Glucose 228 H Calculated Osmolality 292 Calcium 8.9 Corrected Calcium 9.5 Phosphorus 3.4 Magnesium 1.8 Total Bilirubin 0.4 AST 14 ALT 21 Alkaline Phosphatase 70 Total Protein 5.6 L Albumin 3.3 L Globulin 2.3 Albumin/Globulin Ratio 1.4 ABG Interpretation ABG results: 09/03/24 09/03/24 09/03/24 00:38 02:56 08:05 ABG pH 7.29 L 7.31 L 7.35 ABG pCO2 75 H* 66 H 61 H ABG pO2 82 L 67 L 88 D ABG HCO3 37 H 33 H 34 H ABG O2 Saturation 96 93 98 ABG Base Excess 7 H 5 H 7 H Quality Measures Quality Measures none Advance care planning discussed with:: patient Assessment & Plan Assessment Current Active Medications: Generic Name Dose Route Start Last Admin Trade Name Freq PRN Reason Stop Dose Admin Acetaminophen 650 mg 09/03/24 04:53 Acetaminophen 325 Mg Tablet PO 10/03/24 04:52 Q6H PRN Fever >101.5 Acetaminophen 650 mg 09/03/24 04:53 Acetaminophen 325 Mg Tablet PO 10/03/24 04:52 Q6H PRN PAIN SCALE 1-3 (mild Albuterol/Ipratropium 3 ml 09/06/24 19:00 09/07/24 06:24 Albuterol/Ipratropium (Duoneb) Rt Katarina 3 Ml Nebu INH 10/06/24 18:59 3 ml Q6HRRT DEBO Administration Artificial Tears 0 drop 09/05/24 08:53 09/05/24 11:11 Artificial Tears 225 Drop/15 Ml Btl BOTH EYES 10/05/24 08:52 2 drops PRN PRN Administration TO KEEP EYES MOIST Heparin Sodium (Porcine) 5,000 unit 09/03/24 06:00 09/07/24 05:23 Heparin Sod Inj 5000 Unit/Ml Vial SC 09/17/24 05:59 5,000 unit Q8HR DEBO Administration Hydralazine HCl 10 mg 09/04/24 16:15 Hydralazine Inj 20 Mg/Ml Vial IV 10/04/24 16:14 Q6H PRN SBP>180 Cefepime HCl 2 gm/ Sodium 50 mls @ 100 mls/hr 09/03/24 21:00 09/06/24 21:39 Chloride IV 09/10/24 20:59 100 mls/hr Q12HR DEBO Administration Doxycycline Hyclate 100 mg/ 100 mls @ 100 mls/hr 09/05/24 21:00 09/06/24 20:34 Sodium Chloride IV 09/10/24 20:59 100 mls/hr BID DEBO Administration Methylprednisolone Sodium Succinate 40 mg 09/07/24 09:00 Methylprednisolone Sod Succ 40 Mg Vial IVP 09/14/24 08:59 QDAY DEBO Nifedipine 60 mg 09/04/24 16:15 09/06/24 08:02 Nifedipine Xl 30 Mg Tabcr PO 10/04/24 16:14 60 mg QDAY DEBO Administration Ondansetron HCl 4 mg 09/03/24 04:53 Ondansetron Inj 2 Mg/Ml Inj 2 Ml IV 10/03/24 04:52 Q6H PRN NAUSEA OR VOMITING Protocol Sennosides 1 tab 09/03/24 04:53 Senna Tablet PO 10/03/24 04:52 QDAY PRN constipation Protocol Tamsulosin HCl 0.4 mg 09/03/24 09:00 09/06/24 08:03 Tamsulosin Hcl 0.4 Mg Capsule PO 10/03/24 08:59 0.4 mg QDAY DEBO Administration Plan 84-year-old male patient reportedly with past medical history of COPD on 2 L of oxygen at home, BPH, hypertension, on a regular treatment presented to the ED due to worsening shortness of breath for the past 2 days. Patient was admitted for tx of COPD exacerbation and possible pneumonia. 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 Patient received ceftriaxone, azithromycin, breathing treatments and methylprednisolone. Presented today with worsening shortness of breath over the past 2 days, he was discharged on Augmentin, azithromycin, methylprednisone pack. Found to have tachycardia of 118, respiratory rate of 24 19.6 most likely secondary to steroids, his hemoglobin is 13.1, and platelets within normal limits. His ABG showed pH of 7.31, CO2 of 66, pO2 of 67, HCO3 of 33, and O2 saturation of 93% During his last admission he was tested negative for cocci, Legionella and his blood cultures were negative. CT angio was done to rule out pulmonary embolism however CT report still pending, and review of initial images there was no obvious signs of consolidation and there was extensive emphysematous changes bilaterally. CTA showed no evidence of pulmonary embolism ABGs improved compared to admission ABGs Blood cultures from 08/28/2024 grew GNR and reported on 09/03/2024 BCx negative in 48 hours, Negative MRSA ? On DuoNebs scheduled every 6 hours ? Solu-Medrol 40 mg IV daily ? Discontinue doxycycline and cefepime ? Started Levaquin 750 mg p.o. for 3 more days ? Maintain O2 saturation between 88 and 92% per nasal cannula #Hypertension Patient was prescribed nifedipine open discharge however and med reconciliation it was reported that the patient was not using his home medication. ? Continue nifedipine 60 mg #History of BPH Previous ultrasound showed prostatomegaly moderate. ? on flomax #Pulmonary embolism-ruled out Disposition: Medtele Fluids: None Feeding: regular Thrombo prophylaxis: heparin Gastric Ulcer prophylaxis: not indicated CODE STATUS: Full code Patient discussed with my attending Dr Desmond Kelly MD PGY-3 Disclaimer: Despite multiple revisions, due to the dictation software being used, the document bellow may not be free of grammatical errors including phonetic/typographic errors. However, this does not deter from our commitment to providing health care in the patient's best interest in mind. Attending Provider Attestation/Addendum I attest that I was physically present for the evaluation, physical examination, lab and imaging review of the patient with the residents. I discussed the case with the residents and agree with the findings and plans of care as documented above. Patient appears comfortable at bedside, denies any new complaints, saturating while on 2 L nasal cannula. Awaiting home oxygen set up before discharge. Amie Logan MD
[2024-09-07] MEDS: Magnesium Sulfate 2 GM Ivpb 2 GM/50 ML BAG IV (08:58)
[2024-09-07] MEDS: NIFEdipine XL 30 MG TABCR 60 MG PO (08:59)
[2024-09-07] MEDS: TAMSULOSIN HCL 0.4 MG CAPSULE PO (08:59)
[2024-09-07] MEDS: DOXYCYCLINE INJ 100 MG in SODIUM CHLORIDE 0.9% (POP) 100 ML IV (09:00)
[2024-09-07] MEDS: CEFEPIME INJ 2 GM in SODIUM CHLORIDE 0.9% (Popper) 50 ML IV (09:01)
[2024-09-07] MEDS: Artificial Tears 225 DROP/15 ML BTL BOTH EYES ×2 (09:02→21:06)
[2024-09-07] MEDS: LEVOFLOXACIN 250 MG TABLET 750 MG PO (11:58)
--- NOTE | 2024-09-07 12:13 | PC.SS ---
Follow up note: Patient has been ready since yesterday for discharge. However, patient's insurance is a barrier and cannot get 02 anywhere due to non payment. SS has been working with marcia, Malka @ [phone]. She has already been given the contact number for [employer]. Patient has this on his insurance and had WC back in 2004 per niece. Niece also spoke to Medicare. They are to update her by Sunday. SS will follow up with marcia Sunday.
[2024-09-08] VITALS (11 sets, daily range): BP systolic 110–134; BP diastolic 60–75; PULSE 75–103; RESP 19–24; TEMP 36–36.8; O2SAT 95–100; BMI 19.9
[2024-09-08] MEDS: ALBUTEROL/IPRATROPIUM (Duoneb) RT SOL 3 ML NEBU INH ×4 (00:20→18:58)
[2024-09-08] MEDS: HEPARIN SOD INJ 5000 UNIT/ML VIAL SC ×3 (05:10→21:34)
[2024-09-08 05:59] LABS: Basophils % (Auto) 0 % (0-2.5); Eosinophils % (Auto) 0 % (0-10); Hematocrit 34.5 % (41.0-53.0); Immature Granulocytes % (Auto) 1 % (0-0); Immature Granulocytes Auto 0.14 Thou/mm3 (0.00-0.00); Lymphocytes # (Auto) 0.8 Thou/mm3 (1.0-4.8); Lymphocytes % (Auto) 6 % (10-50); Mean Corpuscular HGB Conc 31.9 g/dl (31.0-37.0); Mean Corpuscular Hemoglobin 27.1 pg (25.0-35.0); Mean Corpuscular Volume 85 fL (80-100); Monocytes # (Auto) 1.5 Thou/mm3 (0.0-0.8); Monocytes % (Auto) 11 % (0-12); Neutrophils # (Auto) 10.8 Thou/mm3 (1.8-7.7); Neutrophils % (Auto) 81 % (37-80); Nucleated Red Blood Cell % 0 /100 WBC (0); Platelet Count 357 Thou/mm3 (140-440); RDW Standard Deviation 42.5 fL (35.1-43.9); Red Blood Count 4.06 Miln/mm3 (4.50-5.90); White Blood Count 13.3 Thou/mm3 (3.8-10.6)
[2024-09-08 06:44] LABS: Alanine Aminotransferase 23 U/L (10-49); Albumin/Globulin Ratio 1.5 (1.2-2.2); Alkaline Phosphatase 59 U/L (46-116); Anion Gap 5 (7-16); Aspartate Amino Transferase 14 U/L (0-34); BUN/Creatinine Ratio 39 Ratio (12-20); Bilirubin,Total 0.4 mg/dL (0.3-1.2); Blood Urea Nitrogen 31 mg/dL (9-23); Calcium 8.5 mg/dL (8.3-10.6); Calcium (Corrected) 9.3 mg/dL (8.5-10.1); Carbon Dioxide 32.1 mMol/L (20.0-31.0); Chloride 101 mMol/L (98-107); Creatinine (Component) 0.8 mg/dL (0.6-1.3); Estimated Creatinine Clearance 52.7 mL/min (>60); Glucose 133 mg/dL (74-106); Magnesium 1.8 mg/dL (1.6-2.6); Osmolality,Calculated 284 (275-295); Phosphorous 2.8 mg/dL (2.4-5.1); Potassium 4.1 mMol/L (3.4-5.1); Sodium 138 mMol/L (136-145); eGFR > 60 See Note
[2024-09-08] MEDS: LEVOFLOXACIN 250 MG TABLET 750 MG PO (08:40)
[2024-09-08] MEDS: NIFEdipine XL 30 MG TABCR 60 MG PO (08:40)
[2024-09-08] MEDS: TAMSULOSIN HCL 0.4 MG CAPSULE PO (08:40)
--- NOTE | 2024-09-08 13:29 | ESDS_ITS ---
<Statement entered by Aliza Cheng MD - 09/08/24 18:22> I discussed with and supervised the engineer internship physician who took care of this patient. I personally saw and examined the patient and discussed the assessment and plan with the entire medicine team, including my attending , I agree with most of the assessment and plan as documented below Aliza Cheng M.D. PGY-2 Planned Discharge Date 09/08/24 DS: Providers Provider Date of admission: 09/03/24 04:53 Primary care physician: Physician Jana Primary/Family Admitting Provider: Christy Moreno MD Attending Provider on Admission: Amie Logan MD Attending Provider on DC: Amie Logan MD Discharging Provider: Rosas Mcdonnell MD Anticipated date of discharge: 09/08/24 DS: Diagnosis Problem List Completed Was Problem List Reviewed/Reconciled?: Yes Hospital Course Hospital Course Hospital course: 84-year-old male patient reportedly with past medical history of COPD on 2 L of oxygen at home, BPH, hypertension, on a regular treatment presented to the ED due to worsening shortness of breath for the past 2 days. Patient was recently admitted to the hospital on 29 August 2023 due to COPD exacerbation and pneumonia, however patient was unable to obtain his medications from pharmacy for a few days and became short of breath and decided to come to the ED. Patient was admitted for tx of COPD exacerbation and possible pneumonia. During Hospital patient was managed with breathing treatments, IV steroids, and IV antibiotics. Cultures were obtained and antibiotic therapy was narrowed down. Patient also was on BiPAP for the time and was weaned to baseline oxygen levels. Hypertension was managed with home nifedipine as taken at home. At this time patient is medically stable for discharge. Patient will be discharged with levofloxacin 750 mg daily for an additional 5 days, continue home oxygen therapy as needed. Patient has been prescribed DuoNebs every 6 hours as needed for shortness of breath and wheezing., Fluticasone-salmeterol inhaler 2 puffs twice daily. Spiriva and albuterol inhaler also prescribed. Patient advised to follow-up with primary care physician within 1 week of discharge. Should any symptoms recur or worsen patient is instructed to return to the ED. 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 Cheng PGY-[address] Desmond Mcdonnell MD PGY-1 Status at Discharge Functional status at discharge: independent ambulation Overall status at discharge: patient is back to baseline Time Spent with Patient Time attestation: Total time spent providing and/or coordinating discharge services: Exam Vital Signs Temp Pulse Resp BP Pulse Ox O2 Del Method O2 Flow Rate 97.6 F 99 22 H 110/70 95 Nasal Cannula 2 09/08/24 08:00 09/08/24 12:26 09/08/24 12:26 09/08/24 08:40 09/08/24 12:26 09/08/24 08:00 09/08/24 12:26 FiO2 30 09/06/24 08:00 Narrative Exam Physical Exam GENERAL: NAD, AAOx3 HEENT: Moist mucosa. Eyes open, symmetrical, & clear CARDIO: Heart RRR, no obvious murmurs PULM: No noted coughing/dyspnea, CTA B/L GI: Abdomen soft, nondistended, no pain on palpation. BSx4 SKIN/MSK/EXT: No wounds/rashes/edema/amputations, no pain on palpation. Pedal pulses present B/L NEURO: AAOx3, no focal neuro deficits, able to move all 4 extremities Discharge Plan Plan Patient Disposition: HOME (Self Care) Patient condition on transfer: Stable Care Plan Goals: All questions were answered and recommendation were given, the ED at any time if he is not feeling well Patient will need to follow-up with primary care provider in 5 to 7 days after discharge Patient will be discharged home with: ? Levofloxacin 750 mg p.o. daily for 5 more days ? Continue home medications ? Oxygen 2 L as needed ? DuoNebs inhalations every 6 hours as needed for shortness of breath and wheezing ? Fluticasone salmeterol inhaler 2 puffs twice daily ? Spiriva 2 puffs daily ? Albuterol inhaler 2 puffs every 6 hours as needed for shortness of breath as rescue inhaler Prescriptions/Referrals Prescriptions/Med Rec: New artificial tear(olrfo-quc-zob) 0.1-0.3-0.2 % Drops 2 drp Both eyes PRN PRN (Reason: To Keep Eyes Moist) Qty: 15 0RF levofloxacin 750 mg tablet 750 mg PO QDAY 5 Days Qty: 5 0RF fluticasone propion-salmeterol 230-21 mcg/actuation HFA aerosol inhaler 2 puff inhalation Q12H Qty: 12 0RF albuterol sulfate 90 mcg/actuation HFA aerosol inhaler 2 puff inhalation Q6H PRN (Reason: shortness of breath or wheezing) Qty: 8.5 0RF ipratropium-albuterol 0.5 mg-3 mg(2.5 mg base)/3 mL solution for nebulization 3 ml inhalation Q6H PRN (Reason: shortness of breath or wheezing) 30 Days Qty: 180 0RF Spiriva Respimat 2.5 mcg/actuation mist 2 puff inhalation QAM 30 Days Qty: 4 0RF tamsulosin 0.4 mg capsule 0.4 mg PO QDAY 30 Days Qty: 30 0RF nifedipine 60 mg tablet extended release 60 mg PO QDAY 30 Days Qty: 30 0RF Continued trazodone 100 mg tablet 100 mg PO QDAY Qty: 30 0RF Discontinued Spiriva Respimat 2.5 mcg/actuation mist 2 puff inhalation QDAY Qty: 4 0RF nifedipine 60 mg tablet extended release 60 mg PO QDAY 30 Days Qty: 30 0RF fluticasone propion-salmeterol 230-21 mcg/actuation HFA aerosol inhaler 2 puff inhalation Q12H 30 Days Qty: 12 0RF albuterol sulfate 90 mcg/actuation aerosol powdr breath activated 2 inh inhalation Q6H PRN (Reason: shortness of breath or wheezing) 30 Days Qty: 1 0RF methylprednisolone [Medrol (Prabhjot)] 4 mg tablets,dose pack 4 mg PO QAM Qty: 21 0RF ipratropium-albuterol 0.5 mg-3 mg(2.5 mg base)/3 mL solution for nebulization 3 ml inhalation Q6H PRN (Reason: shortness of breath) 30 Days Qty: 180 0RF amoxicillin-pot clavulanate 500-125 mg tablet 1 tab PO Q12H Patient Comments: TAKE ONE TABLET BY MOUTH TWICE DAILY FOR 2 DAYS azithromycin 500 mg tablet 500 mg PO QDAY Patient Comments: TAKE ONE TABLET BY MOUTH EVERY DAY FOR INFECTION start ON DAY TWO of therapy Referrals: No Primary/Family,Physician [Primary Care Provider] - Patient/Caregiver Discharge Instructions Meds to Beds: No Discharge Activity: activity as tolerated Education Materials: COPD: Chronic Coughing Print Language: Kyrgyz Stand Alone Forms: [facility] Award Info., Patient Portal Info Letter Discharge Order Discharge Orders: Discharge (Routine); Ordered 09/08/24 Ordered By: Rosas Mcdonnell Quality Discharge Quality Measures VTE prophylaxis MD Attestestation MD Attestation I attest that I was physically present for the evaluation, physical examination, lab and imaging review of the patient with the residents. I discussed the case with the residents and agree with the findings and plans of care as documented above. Amie Logan MD
[2024-09-09] VITALS (11 sets, daily range): BP systolic 111–124; BP diastolic 56–72; PULSE 69–107; RESP 15–25; TEMP 36.1–36.8; O2SAT 92–100
[2024-09-09] MEDS: ALBUTEROL/IPRATROPIUM (Duoneb) RT SOL 3 ML NEBU INH ×4 (00:49→19:08)
[2024-09-09] MEDS: HEPARIN SOD INJ 5000 UNIT/ML VIAL SC ×3 (05:40→21:20)
[2024-09-09] MEDS: LEVOFLOXACIN 250 MG TABLET 750 MG PO (08:39)
[2024-09-09] MEDS: NIFEdipine XL 30 MG TABCR 60 MG PO (08:39)
[2024-09-09] MEDS: TAMSULOSIN HCL 0.4 MG CAPSULE PO (08:39)
--- NOTE | 2024-09-09 10:19 | PC.SS ---
Addendum entered by Michell Turk 09/09/24 16:16: [facility] declined patient's DME order for oxygen. [facility] stated patient is an established client of [facility] and [facility] cannot accept referral. [facility] also stated patient's Medicare is showing INACTIVE. Addendum entered by Michell Turk 09/09/24 12:37: [facility] denied DME order for oxygen. [facility] submitted to [facility] awaiting response. Original Note: received secondary insurance information for patient from JAVAD Betts, information forwarded to [facility] via About/[employer].
--- NOTE | 2024-09-09 15:07 | PC.NURSE ---
Patient on 2 liters Nasal cannula. O2 saturation at 98. Placed Patient on room air. O2 saturation dropped to 86. Placed patient back on Nasal cannula at 2 liters. O2 saturation went back up to 97.
--- NOTE | 2024-09-09 15:49 | ESPR_ITS ---
<Statement entered by Beth Kelly MD - 09/09/24 16:27> I discussed with and supervised the graphic design intern physician who took care of this patient. I personally saw and examined the patient and discussed the assessment and plan with the entire medicine team, including my attending Dr. Logan, I agree with the assessment and plan as documented below Patient seen and examined at bedside today. Labs and imaging reviewed. Beth Kelly MD PGY-3 Disclaimer: Despite multiple revisions, due to the dictation software being used, the document bellow may not be free of grammatical errors including phonetic/typographic errors. However, this does not deter from our commitment to providing health care in the patient's best interest in mind. Documentation for date of: 09/09/24 Subjective Subjective Interval history: Patient seen today at the bedside fine awake alert, oriented x 3. No overnight events reported. Vital signs stable at this time. Labs stable at this time. Will not require order new labs for this patient. Patient is only pending home oxygen therapy patient is medically discharged from our standpoint. Exam Vital Signs Temp Pulse Resp BP Pulse Ox O2 Del Method O2 Flow Rate 98.2 F 91 22 H 111/56 L 98 Nasal Cannula 2 09/09/24 08:00 09/09/24 12:35 09/09/24 12:35 09/09/24 08:39 09/09/24 12:35 09/09/24 04:00 09/09/24 07:32 FiO2 30 09/09/24 04:00 Narrative Exam Physical Exam GENERAL: NAD, AAOx3 HEENT: Moist mucosa. Eyes open, symmetrical, & clear CARDIO: Heart RRR, no obvious murmurs PULM: No noted coughing/dyspnea, CTA B/L GI: Abdomen soft, nondistended, no pain on palpation. BSx4 SKIN/MSK/EXT: No wounds/rashes/edema/amputations, no pain on palpation. Pedal pulses present B/L NEURO: AAOx3, no focal neuro deficits, able to move all 4 extremities Objective Labs 09/08/24 05:05 09/08/24 05:05 ABG Interpretation ABG results: 09/03/24 09/03/24 09/03/24 00:38 02:56 08:05 ABG pH 7.29 L 7.31 L 7.35 ABG pCO2 75 H* 66 H 61 H ABG pO2 82 L 67 L 88 D ABG HCO3 37 H 33 H 34 H ABG O2 Saturation 96 93 98 ABG Base Excess 7 H 5 H 7 H Quality Measures Quality Measures VTE prophylaxis Advance care planning discussed with:: patient Assessment & Plan Assessment Current Active Medications: Generic Name Dose Route Start Last Admin Trade Name Freq PRN Reason Stop Dose Admin Acetaminophen 650 mg 09/03/24 04:53 Acetaminophen 325 Mg Tablet PO 10/03/24 04:52 Q6H PRN Fever >101.5 Acetaminophen 650 mg 09/03/24 04:53 Acetaminophen 325 Mg Tablet PO 10/03/24 04:52 Q6H PRN PAIN SCALE 1-3 (mild Albuterol/Ipratropium 3 ml 09/06/24 19:00 09/09/24 12:35 Albuterol/Ipratropium (Duoneb) Rt Katarina 3 Ml Nebu INH 10/06/24 18:59 3 ml Q6HRRT DEBO Administration Artificial Tears 0 drop 09/05/24 08:53 09/07/24 21:06 Artificial Tears 225 Drop/15 Ml Btl BOTH EYES 10/05/24 08:52 2 drops PRN PRN Administration TO KEEP EYES MOIST Heparin Sodium (Porcine) 5,000 unit 09/03/24 06:00 09/09/24 14:35 Heparin Sod Inj 5000 Unit/Ml Vial SC 09/17/24 05:59 5,000 unit Q8HR DEBO Administration Hydralazine HCl 10 mg 09/04/24 16:15 Hydralazine Inj 20 Mg/Ml Vial IV 10/04/24 16:14 Q6H PRN SBP>180 Levofloxacin 750 mg 09/07/24 11:00 09/09/24 08:39 Levofloxacin 250 Mg Tablet PO 09/10/24 10:59 750 mg QDAY DEBO Administration Nifedipine 60 mg 09/04/24 16:15 09/09/24 08:39 Nifedipine Xl 30 Mg Tabcr PO 10/04/24 16:14 60 mg QDAY DEBO Administration Ondansetron HCl 4 mg 09/03/24 04:53 Ondansetron Inj 2 Mg/Ml Inj 2 Ml IV 10/03/24 04:52 Q6H PRN NAUSEA OR VOMITING Protocol Sennosides 1 tab 09/03/24 04:53 Senna Tablet PO 10/03/24 04:52 QDAY PRN constipation Protocol Tamsulosin HCl 0.4 mg 09/03/24 09:00 09/09/24 08:39 Tamsulosin Hcl 0.4 Mg Capsule PO 10/03/24 08:59 0.4 mg QDAY DEBO Administration Plan 84-year-old male patient reportedly with past medical history of COPD on 2 L of oxygen at home, BPH, hypertension, on a regular treatment presented to the ED due to worsening shortness of breath for the past 2 days. Patient was admitted for tx of COPD exacerbation and possible pneumonia. 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 Patient received ceftriaxone, azithromycin, breathing treatments and methylprednisolone. Presented today with worsening shortness of breath over the past 2 days, he was discharged on Augmentin, azithromycin, methylprednisone pack. Found to have tachycardia of 118, respiratory rate of 24 19.6 most likely secondary to steroids, his hemoglobin is 13.1, and platelets within normal limits. His ABG showed pH of 7.31, CO2 of 66, pO2 of 67, HCO3 of 33, and O2 saturation of 93% During his last admission he was tested negative for cocci, Legionella and his blood cultures were negative. CT angio was done to rule out pulmonary embolism however CT report still pending, and review of initial images there was no obvious signs of consolidation and there was extensive emphysematous changes bilaterally. CTA showed no evidence of pulmonary embolism ABGs improved compared to admission ABGs Blood cultures from 08/28/2024 grew GNR and reported on 09/03/2024 BCx negative in 48 hours, Negative MRSA ? On DuoNebs scheduled every 6 hours ? on Levaquin 750 mg p.o. for 3 more days ? Maintain O2 saturation between 88 and 92% per nasal cannula #Hypertension Patient was prescribed nifedipine open discharge however and med reconciliation it was reported that the patient was not using his home medication. ? Continue nifedipine 60 mg #History of BPH Previous ultrasound showed prostatomegaly moderate. ? on flomax #Pulmonary embolism-ruled out Disposition: Medtele Fluids: None Feeding: regular Thrombo prophylaxis: heparin Gastric Ulcer prophylaxis: not indicated CODE STATUS: Full code Patient discussed with my senior Dr. Kelly PGY-[address] Desmond Mcdonnell MD PGY-1 Disclaimer: Despite multiple revisions, due to the dictation software being used, the document bellow may not be free of grammatical errors including phonetic/typographic errors. However, this does not deter from our commitment to providing health care in the patient's best interest in mind. Attending Provider Attestation/Addendum I attest that I was physically present for the evaluation, physical examination, lab and imaging review of the patient with the residents. I discussed the case with the residents and agree with the findings and plans of care as documented above. Amie Logan MD
[2024-09-09] MEDS: Artificial Tears 225 DROP/15 ML BTL BOTH EYES (18:27)
[2024-09-10] VITALS (9 sets, daily range): BP systolic 102–119; BP diastolic 52–69; PULSE 22–98; RESP 16–24; TEMP 36.1–36.6; O2SAT 95–99
[2024-09-10] MEDS: ALBUTEROL/IPRATROPIUM (Duoneb) RT SOL 3 ML NEBU INH ×2 (00:37→13:13)
[2024-09-10] MEDS: HEPARIN SOD INJ 5000 UNIT/ML VIAL SC ×2 (05:30→14:37)
[2024-09-10] MEDS: LEVOFLOXACIN 250 MG TABLET 750 MG PO (08:42)
[2024-09-10] MEDS: TAMSULOSIN HCL 0.4 MG CAPSULE PO (08:43)
[2024-09-10] MEDS: NIFEdipine XL 30 MG TABCR 60 MG PO (08:43)
--- NOTE | 2024-09-10 09:39 | PC.SS ---
Addendum entered by LORI Sahu 09/10/24 16:59: Faxed insurance eligibility coverage letter/benefits response to [employer] insurance carrier. Notified family on the importance to follow up with DME payments/insurance carrier to prevent insurance issues in the future. Addendum entered by LORI Sahu 09/10/24 16:09: SS update: [facility] informed they will deliver DME within 3-4 hours. Updated patient's family and bed side nurse Sheeba. Family informs they will transport patient home. Addendum entered by LORI Sahu 09/10/24 15:33: SS follow up: Faxed DME order to [facility] to fax: [phone]. Patient's son, Richar Rincon provided credit card information to [facility] vendor via phone. Pending response from DME vendor to ensure DME to be delivered today. Addendum entered by LORI Sahu 09/10/24 13:19: Bed side nurse Sheeba was updated on current status. Addendum entered by LORI Sahu 09/10/24 13:18: SS follow up: spoke with patient's family to notify of the insurance barriers with getting the patient oxygen. Current option, is to purchase DME out of pocket with [facility] and have it delivered. Patient's son Richar Rincon informs he is able to cover the costs and is to come by the hospital at 2:30pm to assist with providing payment to [facility]. hotel services supervisor on stand by to assist. Addendum entered by LORI Sahu 09/10/24 12:04: [facility] and informs the patient is showing as ineligible with illegal status, not resident which they are stating they are unable to bill for. Informed [facility] staff Kimberlyn and Nia regarding the barriers for the patient not being able to receive the needed DME. Kimberlyn informs they will discuss the matter and return call back with an update. Addendum entered by LORI Sahu 09/10/24 10:46: SS follow up: faxed patient's insurance eligibility verification to [facility]. Pending response from [facility]. Addendum entered by LORI Sahu 09/10/24 10:09: SS follow up: Reached out to [facility] company, they inform they are not able to accept the DME order as the patient's insurance is showing as inactive. They also inform they can assist with providing oxygen to the patient with a monthly $275 charge after verifying permanent home address, ID, and valid credit card which would be charge every th of the month as possible option in order to get oxygen needs. Addendum entered by LORI Sahu 09/10/24 10:08: Nia with [facility], also informs, they are not able to assist with out of pocket charge to assist with DME at this time. Original Note: SS follow up: spoke with Nia at [facility] and she informs the patient would not be eligible get DME through them (even private pay) as they are not the contracted DME carrier. Nia also informs that the patient's Medicare insurance is showing as inactive. Patient's secondary insurance is contracted through [facility] per Nia.
--- NOTE | 2024-09-10 17:41 | PC.NURSE ---
[facility] called and informed this nurse around 16:00 PM that oxygen will be delivered within 3-4 hours. Family was informed.
--- NOTE | 2024-09-10 18:15 | ESDS_ITS ---
<Statement entered by Aliza Cheng MD - 09/10/24 18:32> I discussed with and supervised the software developer intern physician who took care of this patient. I personally saw and examined the patient and discussed the assessment and plan with the entire medicine team, including my attending , I agree with most of the assessment and plan as documented below Aliza Cheng M.D. PGY-2 <Statement entered by Beth Kelly MD - 09/10/24 18:23> I discussed with and supervised the software developer intern physician who took care of this patient. I personally saw and examined the patient and discussed the assessment and plan with the entire medicine team, including my attending Dr. Cisneros, I agree with the assessment and plan as documented below Patient seen and examined at bedside today. Labs and imaging reviewed. All questions were answered and recommendation were given, the ED at any time if he is not feeling well Patient will need to follow-up with primary care provider in 5 to 7 days after discharge Patient will be discharged home with: ? Levofloxacin 750 mg p.o. daily for 5 more days ? Continue home medications ? Oxygen 2 L as needed ? DuoNebs inhalations every 6 hours as needed for shortness of breath and wheezing ? Fluticasone salmeterol inhaler 2 puffs twice daily ? Spiriva 2 puffs daily ? Albuterol inhaler 2 puffs every 6 hours as needed for shortness of breath as rescue inhaler Beth Kelly MD PGY-3 Disclaimer: Despite multiple revisions, due to the dictation software being used, the document bellow may not be free of grammatical errors including phonetic/typographic errors. However, this does not deter from our commitment to providing health care in the patient's best interest in mind. Planned Discharge Date 09/10/24 DS: Providers Provider Date of admission: 09/03/24 04:53 Primary care physician: Physician No Primary/Family Admitting Provider: Christy Moreno MD Attending Provider on Admission: Tong Cisneros MD Attending Provider on DC: Tong Cisneros MD Discharging Provider: Rosas Mcdonnell MD Anticipated date of discharge: 09/10/24 DS: Diagnosis Problem List Completed Was Problem List Reviewed/Reconciled?: Yes Hospital Course Hospital Course Hospital course: 84-year-old male patient reportedly with past medical history of COPD on 2 L of oxygen at home, BPH, hypertension, on a regular treatment presented to the ED due to worsening shortness of breath for the past 2 days. Patient was recently admitted to the hospital on 29 August 2023 due to COPD exacerbation and pneumonia, however patient was unable to obtain his medications from pharmacy for a few days and became short of breath and decided to come to the ED. Patient was admitted for tx of COPD exacerbation and possible pneumonia. During Hospital patient was managed with breathing treatments, IV steroids, and IV antibiotics. Cultures were obtained and antibiotic therapy was narrowed down. Patient also was on BiPAP for the time and was weaned to baseline oxygen levels. Hypertension was managed with home nifedipine as taken at home. At this time patient is medically stable for discharge. Patient will be discharged with levofloxacin 750 mg daily for an additional 5 days, continue home oxygen therapy as needed. Patient has been prescribed DuoNebs every 6 hours as needed for shortness of breath and wheezing., Fluticasone-salmeterol inhaler 2 puffs twice daily. Spiriva and albuterol inhaler also prescribed. Patient advised to follow-up with primary care physician within 1 week of discharge. Should any symptoms recur or worsen patient is instructed to return to the ED. Problem List: #Acute on chronic hypercapnic hypoxic respiratory failure most likely multifactorial secondary to COPD exacerbation and pneumonia improving #COPD exacerbation improving #Community vs hospital-acquired pneumonia proving #GNR bacteremia-improving #Hypertension #History of BPH #Pulmonary embolism-ruled out Case discussed with my seniors Dr. Kelly PGY-3, Dr. Cheng PGY-[address] Amelia Mcdonnell MD PGY-1 Time Spent with Patient Time attestation: Total time spent providing and/or coordinating discharge services: Exam Vital Signs Temp Pulse Resp BP Pulse Ox O2 Del Method O2 Flow Rate 97.2 F 94 18 115/69 97 Nasal Cannula 2 09/10/24 16:00 09/10/24 16:00 09/10/24 16:00 09/10/24 16:00 09/10/24 16:00 09/10/24 00:00 09/10/24 13:14 FiO2 30 09/09/24 04:00 Narrative Exam Physical Exam GENERAL: NAD, AAOx3 HEENT: Moist mucosa. Eyes open, symmetrical, & clear CARDIO: Heart RRR, no obvious murmurs PULM: No noted coughing/dyspnea CTA B/L, no R/W/R GI: Abdomen soft, nondistended, no pain on palpation. BSx4 SKIN/MSK/EXT: No wounds/rashes/edema/amputations, no pain on palpation. Pedal pulses present B/L NEURO: AAOx3, no focal neuro deficits, able to move all 4 extremities Discharge Plan Plan Patient Disposition: HOME (Self Care) Patient condition on transfer: Stable Care Plan Goals: All questions were answered and recommendation were given, the ED at any time if he is not feeling well Patient will need to follow-up with primary care provider in 5 to 7 days after discharge Patient will be discharged home with: ? Levofloxacin 750 mg p.o. daily for 5 more days ? Continue home medications ? Oxygen 2 L as needed ? DuoNebs inhalations every 6 hours as needed for shortness of breath and wheezing ? Fluticasone salmeterol inhaler 2 puffs twice daily ? Spiriva 2 puffs daily ? Albuterol inhaler 2 puffs every 6 hours as needed for shortness of breath as rescue inhaler Prescriptions/Referrals Prescriptions/Med Rec: New artificial tear(puzwd-ccy-szx) 0.1-0.3-0.2 % Drops 2 drp Both eyes PRN PRN (Reason: To Keep Eyes Moist) Qty: 15 0RF fluticasone propion-salmeterol 230-21 mcg/actuation HFA aerosol inhaler 2 puff inhalation Q12H Qty: 12 0RF albuterol sulfate 90 mcg/actuation HFA aerosol inhaler 2 puff inhalation Q6H PRN (Reason: shortness of breath or wheezing) Qty: 8.5 0RF ipratropium-albuterol 0.5 mg-3 mg(2.5 mg base)/3 mL solution for nebulization 3 ml inhalation Q6H PRN (Reason: shortness of breath or wheezing) 30 Days Qty: 180 0RF Spiriva Respimat 2.5 mcg/actuation mist 2 puff inhalation QAM 30 Days Qty: 4 0RF tamsulosin 0.4 mg capsule 0.4 mg PO QDAY 30 Days Qty: 30 0RF nifedipine 60 mg tablet extended release 60 mg PO QDAY 30 Days Qty: 30 0RF Continued trazodone 100 mg tablet 100 mg PO QDAY Qty: 30 0RF Discontinued Spiriva Respimat 2.5 mcg/actuation mist 2 puff inhalation QDAY Qty: 4 0RF nifedipine 60 mg tablet extended release 60 mg PO QDAY 30 Days Qty: 30 0RF fluticasone propion-salmeterol 230-21 mcg/actuation HFA aerosol inhaler 2 puff inhalation Q12H 30 Days Qty: 12 0RF albuterol sulfate 90 mcg/actuation aerosol powdr breath activated 2 inh inhalation Q6H PRN (Reason: shortness of breath or wheezing) 30 Days Q ty: 1 0RF methylprednisolone [Medrol (Prabhjot)] 4 mg tablets,dose pack 4 mg PO QAM Qty: 21 0RF ipratropium-albuterol 0.5 mg-3 mg(2.5 mg base)/3 mL solution for nebulization 3 ml inhalation Q6H PRN (Reason: shortness of breath) 30 Days Qty: 180 0RF amoxicillin-pot clavulanate 500-125 mg tablet 1 tab PO Q12H Patient Comments: TAKE ONE TABLET BY MOUTH TWICE DAILY FOR 2 DAYS azithromycin 500 mg tablet 500 mg PO QDAY Patient Comments: TAKE ONE TABLET BY MOUTH EVERY DAY FOR INFECTION start ON DAY TWO of therapy Referrals: No Primary/Family,Physician [Primary Care Provider] - Patient/Caregiver Discharge Instructions Meds to Beds: No Discharge Activity: activity as tolerated Education Materials: COPD: Chronic Coughing Print Language: Welsh Stand Alone Forms: Aimee Award Info., Patient Portal Info Letter Discharge Order Discharge Orders: Discharge (Routine); Ordered 09/10/24 Ordered By: Rosas Mcdonnell Quality Discharge Quality Measures VTE prophylaxis Attestestation MD Attestation I have examined the patient, reviewed labs and imaging findings, discussed the case with the resident(s), and reviewed entered orders. I agree with the plan of care as outlined in this note. Dr. Amelia MD
== END 2024-09-10 18:18 | disposition home or self-care (01) | DRG 190 ==
LOC: SERX 09-03 01:13 → SERHOLD 09-03 05:24 → S3SX 09-03 06:49
PROVIDERS: Student in an Organized Health Care Education/Training Program; Admitting Provider Internal Medicine; Emergency Provider Emergency Medicine; Visit Provider Student in an Organized Health Care Education/Training Program
DX: J44.0 Chronic obstructive pulmonary disease with (acute) lower respiratory infection (principal); J18.9 Pneumonia, unspecified organism; J96.21 Acute and chronic respiratory failure with hypoxia; J96.22 Acute and chronic respiratory failure with hypercapnia; R78.81 Bacteremia; J44.1 Chronic obstructive pulmonary disease with (acute) exacerbation; N40.0 Benign prostatic hyperplasia without lower urinary tract symptoms; I10 Essential (primary) hypertension; F41.9 Anxiety disorder, unspecified; G47.00 Insomnia, unspecified; Z86.79 Personal history of other diseases of the circulatory system; Z99.81 Dependence on supplemental oxygen; Z79.899 Other long term (current) drug therapy
CPT/HCPCS: 36415; 36600; 71045; 71275; 80053; 80307; 81001; 82803; 83036; 83605; 83735; 83880; 84100; 84145; 84443; 84484; 85025; 85610; 85730; 87040; 87081; 87086; 87400; 87811; 93005; 93225; 94640; 94660; 94667; 96361; 96365; 96367; 96372; 96375; 99285; A4649; A9270; J0692; J1643; J2060; J2543; J2919; J3475; J3490; J7030; J7040; J7050; Q9967

== ENCOUNTER 2024-10-08 09:15 | Outpatient (AMB) | payer MEDICARE, MEDICAID, SELFPAY ==
[2024-10-08 09:40] VITALS: BP 171/73; PULSE 84; RESP 16; TEMP 36.6; O2SAT 90; BMI 19.8
--- NOTE | 2024-10-08 09:40 | ACNOTE_ITS ---
Vital Signs 10/08/24 09:40 Height 1.68 m Height Method Stated Weight 55.792 kg Weight Measurement Method Standing Scale BMI 19.8 BP 171/73 H Blood Pressure Source Automatic Cuff Blood Pressure Location Left Upper Arm Position Sitting Respiration 16 Pulse 84 Pulse Source Monitor Temp 97.8 F Temp Source Temporal Artery Scan Pulse Oximetry (%) 90 L Oxygen Delivery Method Room Air Allergies/Meds Allergies & Medications Allergies No Known Allergies Allergy (Verified 10/08/24 09:41) Medication Reconciliation albuterol sulfate 90 mcg/actuation aerosol inhaler 2 puff inhalation Q6H PRN sh ortness of breath or wheezing #8.5 grams 10/09/24 [Rx] artificial tears(smdxczq-feavlqqz-vrcmyhr) 0.1 %-0.3 %-0.2 % eye drops 2 drp Both eyes PRN PRN To Keep Eyes Moist #15 mL 10/09/24 [Rx] blood pressure monitor (Blood Pressure Kit) #1 ea 10/09/24 [Rx] fluticasone propionate 230 mcg-salmeterol 21 mcg/actuation HFA inhaler 2 puff inhalation Q12H #12 grams 10/09/24 [Rx] nifedipine 60 mg tablet,extended release 60 mg PO QDAY #30 tabs 10/09/24 [Rx] tamsulosin 0.4 mg capsule 0.4 mg PO QDAY #30 caps 10/09/24 [Rx] tiotropium bromide 2.5 mcg/actuation mist for inhalation 2 puff inhalation QDAY #4 grams 10/09/24 [Rx] trazodone 100 mg tablet 100 mg PO QHS #30 tabs 10/09/24 [Rx] MA Intake Visit Data Collection New Patient or Established: Established Patient (seen at [facility] within 3 years) Seen by Clinical Staff ONLY (RN/MA): No Pain Present Currently: No Pain scale:: 0 Pain Scale Used: Del Castillo-Oh/Numerical [employer] Receptionist Required: No PCP or OBGYN visit in last 3 months: No Hx Now: No Do You Feel Safe at Home: Yes Authorities Contacted: N/A Smoking Status Smoking Status: Former smoker Immunization / Flu Flu Vaccine in the Last 12 Months: No Flu Vaccine Exclusion Criteria: No Exclusion Criteria Past Medical History Past Medical History NEUROLOGIC: Negative Neurological Disorders CARDIAC: Positive Hypertension; Negative Cardiac Disorders or Congestive Heart Failure RESPIRATORY: Positive Chronic Obstructive Pulmonary Disease (COPD) and Pneumonia; Negative Asthma GENITOURINARY: Positive Benign Prostatic Hyperplasia; Negative Genitourinary Disorders or Renal Disease REPRODUCTIVE: Negative Fibroids MUSCULOSKELETAL: Negative Arthritis ENDOCRINE: Negative Diabetes Mellitus Type 1 or Diabetes Mellitus Type 2 HEMATOLOGIC: Negative Anemia or Sickle Cell Disease PSYCHO/SOCIAL: Positive Anxiety OTHER HISTORY: Negative Blood Transfusions, Anesthesia Reactions, Organ Transplant, MRSA, Clostridium Difficile or Cancer Family History FAMILY HISTORY: Negative Family Cardiac Disorders Surgical History SURGICAL: Negative Thyroidectomy or Organ Transplant Social History SMOKING STATUS: Smoking status: Former smoker SECOND HAND EXPOSURE: second hand exposure: No (QUIT >12yrs ago) ALCOHOL: Alcohol Intake: Never HOUSING: Housing: House LIVES WITH: Lives With: Family Patient Portal Questionairana lilia Social History Living Situation History Housing: House Housing Other:: lives with son Tobacco History Smoking Status: Former smoker Packs per Day: 2 Second Hand Smoke Exposure: No (QUIT >12yrs ago) Alcohol History Alcohol Intake: Never Domestic Abuse History Do You Feel Safe at Home: Yes Review of Systems Report any current symptoms Only answer those that you have currently: Past Medical History Past Medical History Have you ever been diagnosed with any of the following: Cardiology Problems Congestive Heart Failure: No Hypertension: Yes Respiratory Problems Chronic Obstructive Pulmonary Disease (COPD): Yes Asthma: No Pneumonia: Yes Genital/Urinary Problems Renal Disease: No Benign Prostatic Hyperplasia: Yes Reproductive Problems Fibroids: No Musculoskeletal Problems Arthritis: No Endocrine Problems Diabetes Mellitus Type 1: No Diabetes Mellitus Type 2: No Blood Problems Anemia: No Sickle Cell Disease: No Psychologic Problems Anxiety: Yes Other Problems Blood Transfusions: No Anesthesia Reactions: No Organ Transplant: No MRSA: No Clostridium Difficile: No Cancer: No Surgical History Thyroidectomy: No History of Present Illness HPI Narrative Mr. Adamson is an 84-year-old English-speaking male with past medical history of asthma and COPD 2L who presented to the office for a follow-up visit. Patient was discharged from [facility] last month for a COPD exacerbation. Overall he is doing much better according to his niece And primarily is requiring refills for his home medications. She states that his oxygen requirement has remained consistent. He denies any fever, SOB, CP, headache, changes in vision, changes in bowel or urinary habits. She states that his BP usually is not as elevated and that she doesnt have a BP cuff for manual measurements. Review of Systems Review of Systems Systems Reviewed: All systems reviewed, normal except as documented Objective/Exam Narrative Physical exam: GENERAL: Alert and oriented x 3. No acute distress. Elderly Frail English speaking male EYES: EOMI. Anicteric. HEENT: Moist mucous membranes. No scleral icterus. No cervical lymphadenopathy. LUNGS: Mild Expiratory wheeze on 2L. Not displaying symptoms of SOB CARDIOVASCULAR: Regular rate and rhythm. No murmur. No JVD. ABDOMEN: Soft, non-tender and non-distended. No palpable masses. EXTREMITIES: All 4 extremeties intact. No edema. Nontender. SKIN: No rashes or lesions. Warm. NEUROLOGIC: No focal neurological deficits. CN II-XII grossly intact, but not individually tested. PSYCHIATRIC: Cooperative. Appropriate mood and affect. Assessment & Plan Diagnosis / Problem List (1) Uncontrolled hypertension: Status: Acute Assessment & Plan: On Nifedipine 60mg ER Plan: Elevated BP in the office but unknown if this is chronic. Given his previous hospitalization BP readings I recommend an ambulatory BP monitoring before initiating another medication. Will Prescribe a BP Cuff and manual Monitoring with follow up (2) Respiratory failure: Status: Acute Qualifiers: Chronicity: chronic Respiratory failure complication: hypoxia Qualified Code(s): J96.11 - Chronic respiratory failure with hypoxia Assessment & Plan: On 2L at baseline Plan: Not in Exacerbation. Will refill home medications (3) COPD (chronic obstructive pulmonary disease): Status: Acute Qualifiers: COPD type: emphysema Emphysema type: unspecified Qualified Code(s): J43.9 - Emphysema, unspecified Assessment & Plan: On 2L at baseline Plan: Disease is well controlled not requiring any increase in O2 primarily needs refill for home medications which were refilled (4) Benign prostate hyperplasia: Status: Acute Qualifiers: Lower urinary tract symptom presence: unspecified whether lower urinary tract symptoms present Qualified Code(s): N40.0 - Benign prostatic hyperplasia without lower urinary tract symptoms Assessment & Plan: On Tamsulosin 0.4 Plan: Refilled home medication (5) Wheelchair dependence: Status: Acute Assessment & Plan: Requires assistance with ADLs Plan: Niece is his primary caregiver Additional Assessment Internal Medicine Attending Note: Case discussed with and agree with note and management plan of Resident Physician as per Resident's Note above. Issues of concern for present visit are as follows: Follow-up visit. Hospitalized last month for COPD exacerbation. Remains on baseline oxygen requirement. Tolerating inhalers. Home medications refilled today. Blood pressure elevated in office. We will have patient obtain some home blood pressure readings and follow-up. Continue nifedipine for now. Nilton Galicia MD Advanced Care Planning Advance care planning discussed with:: other Physician Billing Established Patient Established Patient: E/M Level 3-CPT 15845 Office Procedures [facility] Level of Care Nursing/Assessment Patient Status: Established Patient Nursing Assessment/Reassessment: Medication Reconciliation, Update PMH in EMR and Vital Signs Coordination of Care: Complex Care and Chronic Disease 1-5, Consent,records obtained, informed consent, Education Simp Pt/Fam and Staff clarify orders Established Patient Charge Established Patient Point Assignment: 85 Established Patient Point Charge: EP Level 3 (80-115)
== END 2024-10-08 10:07 | disposition home or self-care (01) ==
LOC: HODAHC 09:15
PROVIDERS: Supervising Provider Internal Medicine
DX: I10 Essential (primary) hypertension (principal); J43.9 Emphysema, unspecified; J96.11 Chronic respiratory failure with hypoxia; Z76.0 Encounter for issue of repeat prescription; N40.0 Benign prostatic hyperplasia without lower urinary tract symptoms; Z99.3 Dependence on wheelchair; Z99.81 Dependence on supplemental oxygen
CPT/HCPCS: 99213; G0463

== ENCOUNTER 2024-10-24 08:31 | Outpatient (AMB) | payer MEDICARE, MEDICAID, SELFPAY ==
[2024-10-24 08:41] VITALS: BP 175/65; PULSE 79; RESP 16; TEMP 36.8; O2SAT 96; BMI 19.4
--- NOTE | 2024-10-24 08:41 | PD.RESCLINIC ---
Vital Signs 10/24/24 08:41 Height 1.68 m Height Method Stated Weight 54.885 kg Weight Measurement Method Standing Scale BMI 19.4 BP 175/65 H Blood Pressure Source Automatic Cuff Blood Pressure Location Right Upper Arm Position Sitting Respiration 16 Pulse 79 Pulse Source Monitor Temp 98.2 F Temp Source Temporal Artery Scan Pulse Oximetry (%) 96 Oxygen Delivery Method Room Air Allergies/Meds Allergies & Medications Allergies No Known Allergies Allergy (Verified 10/24/24 08:42) Medication Reconciliation artificial tears(elzcjcb-jcsregnt-eauuqlq) 0.1 %-0.3 %-0.2 % eye drops 2 drp Both eyes PRN PRN To Keep Eyes Moist #15 mL 10/09/24 [Rx Confirmed 10/24/24] blood pressure monitor (Blood Pressure Kit) #1 ea 10/09/24 [Rx Confirmed 10/24/24] albuterol sulfate 90 mcg/actuation aerosol inhaler 2 puff inhalation Q4H PRN shortness of breath or wheezing #8.5 grams 10/24/24 [Rx] doxazosin 2 mg tablet 2 mg PO QHS 3 months #90 tabs 10/24/24 [Rx] ipratropium 0.5 mg-albuterol 3 mg (2.5 mg base)/3 mL nebulization soln 3 ml inhalation Q6H PRN shortness of breath or wheezing #180 mL 10/24/24 [Rx] mometasone-formoterol HFA 200 mcg-5 mcg/actuation aerosol inhaler (Dulera) 2 puff inhalation BID 1 month #8.8 grams 10/24/24 [Rx] nifedipine 90 mg tablet,extended release 24 hr 90 mg PO QDAY 1 month #30 tabs 10/24/24 [Rx] trazodone 50 mg tablet 50 mg PO QDAY 1 month #30 tabs 10/24/24 [Rx] MA Intake Visit Data Collection New Patient or Established: Established Patient (seen at [facility] within 3 years) Seen by Clinical Staff ONLY (RN/MA): No Pain Present Currently: No Pain scale:: 0 Pain Scale Used: Del CastilloRadha/Numerical Harp Repairer Required: No PCP or OBGYN visit in last 3 months: Yes Hx Now: No Do You Feel Safe at Home: Yes Authorities Contacted: N/A Smoking Status Smoking Status: Former smoker Immunization / Flu Flu Vaccine in the Last 12 Months: No Flu Vaccine Exclusion Criteria: No Exclusion Criteria Past Medical History Past Medical History NEUROLOGIC: Negative Neurological Disorders CARDIAC: Positive Hypertension; Negative Cardiac Disorders or Congestive Heart Failure RESPIRATORY: Positive Chronic Obstructive Pulmonary Disease (COPD) and Pneumonia; Negative Asthma GENITOURINARY: Positive Benign Prostatic Hyperplasia; Negative Genitourinary Disorders or Renal Disease REPRODUCTIVE: Negative Fibroids MUSCULOSKELETAL: Negative Arthritis ENDOCRINE: Negative Diabetes Mellitus Type 1 or Diabetes Mellitus Type 2 HEMATOLOGIC: Negative Anemia or Sickle Cell Disease PSYCHO/SOCIAL: Positive Anxiety OTHER HISTORY: Negative Blood Transfusions, Anesthesia Reactions, Organ Transplant, MRSA, Clostridium Difficile or Cancer Family History FAMILY HISTORY: Negative Family Cardiac Disorders Surgical History SURGICAL: Negative Thyroidectomy or Organ Transplant Social History SMOKING STATUS: Smoking status: Former smoker SECOND HAND EXPOSURE: second hand exposure: No (QUIT >12yrs ago) ALCOHOL: Alcohol Intake: Never HOUSING: Housing: House LIVES WITH: Lives With: Family Patient Shahida Dobbs Social History Living Situation History Housing: House Housing Other:: lives with son Tobacco History Smoking Status: Former smoker Packs per Day: 2 Second Hand Smoke Exposure: No (QUIT >12yrs ago) Alcohol History Alcohol Intake: Never Domestic Abuse History Do You Feel Safe at Home: Yes Review of Systems Report any current symptoms Only answer those that you have currently: Past Medical History Past Medical History Have you ever been diagnosed with any of the following: Cardiology Problems Congestive Heart Failure: No Hypertension: Yes Respiratory Problems Chronic Obstructive Pulmonary Disease (COPD): Yes Asthma: No Pneumonia: Yes Genital/Urinary Problems Renal Disease: No Benign Prostatic Hyperplasia: Yes Reproductive Problems Fibroids: No Musculoskeletal Problems Arthritis: No Endocrine Problems Diabetes Mellitus Type 1: No Diabetes Mellitus Type 2: No Blood Problems Anemia: No Sickle Cell Disease: No Psychologic Problems Anxiety: Yes Other Problems Blood Transfusions: No Anesthesia Reactions: No Organ Transplant: No MRSA: No Clostridium Difficile: No Cancer: No Surgical History Thyroidectomy: No History of Present Illness HPI Narrative Mr. Adamson is an 84-year-old Greenlandic-speaking male with past medical history of asthma and COPD 2L who presented to the office for a follow-up visit. Patient was discharged from [facility] last month for a COPD exacerbation. Overall he is doing much better according to his niece And primarily is requiring refills for his home medications. She states that his oxygen requirement has remained consistent. He denies any fever, SOB, CP, headache, changes in vision, changes in bowel or urinary habits. She states that his BP usually is not as elevated and that she doesnt have a BP cuff for manual measurements. 10/24/2024: Patient seen today at [facility]. Patient reports not having his medications that were sent 2 weeks ago. When speaking with pharmacy they reported that medications were picked up. BP at the [facility] SBP> 170s, but patient has not taken his medications as he states has not been able to pick-up medications. Patient has hx of COPD, and medications were adjusted and re-sent. Objective/Exam Narrative Physical exam: Physical Exam GENERAL: NAD, AAOx3, cachectic, frail HEENT: Moist mucosa. Eyes open, symmetrical, & clear CARDIO: Heart RRR, no obvious murmurs PULM: No noted coughing/dyspnea CTA B/L, no R/W/R GI: Abdomen soft, nondistended, no pain on palpation. BSx4 SKIN/MSK/EXT: No wounds/rashes/edema/amputations, no pain on palpation. Pedal pulses present B/L NEURO: AAOx3, no focal neuro deficits, able to move all 4 extremities Assessment & Plan Diagnosis / Problem List (1) Uncontrolled hypertension: Status: Acute Plan: Patient takes nifedipine 60mg, dose was changed to 90mg (2) Benign prostate hyperplasia: Status: Acute Qualifiers: Lower urinary tract symptom presence: unspecified whether lower urinary tract symptoms present Qualified Code(s): N40.0 - Benign prostatic hyperplasia without lower urinary tract symptoms Plan: tamsulosin, changed to doxazosin (3) COPD (chronic obstructive pulmonary disease): Status: Acute Qualifiers: COPD type: emphysema Emphysema type: unspecified Qualified Code(s): J43.9 - Emphysema, unspecified Plan: inhalers switched to different alternatives, as its very important for patient to be on these medications in order to prevent exacerbations. - continue with home O2 (4) Insomnia: Status: Acute Plan: trazodone 50mg q day sent. Advanced Care Planning Advance care planning discussed with:: patient Office Procedures [facility] Level of Care Nursing/Assessment Patient Status: Established Patient Nursing Assessment/Reassessment: Medication Reconciliation, Update PMH in EMR and Vital Signs Coordination of Care: Complex Care and Chronic Disease 1-5, Consent,records obtained, informed consent, Education Simp Pt/Fam and Staff clarify orders Established Patient Charge Established Patient Point Assignment: 85 Established Patient Point Charge: EP Level 3 (80-115)
== END 2024-10-24 10:28 | disposition home or self-care (01) ==
LOC: HODAHC 08:31
PROVIDERS: Supervising Provider Internal Medicine; Visit Provider Student in an Organized Health Care Education/Training Program
DX: N40.0 Benign prostatic hyperplasia without lower urinary tract symptoms (principal); I10 Essential (primary) hypertension; J44.9 Chronic obstructive pulmonary disease, unspecified; G47.00 Insomnia, unspecified
CPT/HCPCS: 99213; G0463